=== PATIENT | female | born 2000 | race Caucasian/White ===

== ENCOUNTER 2024-08-13 07:45 | Inpatient (IN) ==
[2024-08-13] MEDS ORDERED: LACTATED RINGER'S 1,000 ML IV PRN (08:03)
[2024-08-13] MEDS ORDERED: ACETAMINOPHEN 325 MG TAB PO PRN (08:03)
[2024-08-13] MEDS ORDERED: LIDOCAINE 1% LOCAL 20 ML VIAL INFIL PRN (08:03)
[2024-08-13] MEDS: Patient's HEIGHT &/or WEIGHT Needed STA (09:08)
[2024-08-13 09:10] LABS: Hematocrit (blood only) 35.5 % (37.0-47.0); Hemoglobin 12.2 g/dl (12.0-16.0); Mean Corpuscular Hgb Conc 34.4 g/dL (32.0-36.0); Mean Corpuscular Volume 90.1 fL (80.0-100.0); Mean Platelet Volume 11.4 fL (9.4-12.4); Platelet Count 281 K/uL (130-400); RDW Coefficient of Variation 13.6 % (11.5-14.5); RDW Standard Deviation 44.1 fL (36.4-46.3); Red Blood Count 3.94 M/uL (4.20-5.40); White Blood Count 11.74 K/ul (4.8-10.8)
[2024-08-13 09:32] LABS: Albumin Level 3.7 gm/dl (3.4-5.0); BUN Creatinine Ratio 16.4 (10-20); Bilirubin,Total 0.2 mg/dl (0.2-1.0); Calcium 9.3 mg/dl (8.6-10.3); Globulin 3.7 gm/dl (2.5-4.0); Potassium 3.9 mmol/L (3.5-5.1); Total Protein 7.4 gm/dl (6.0-8.3)
[2024-08-13] MEDS ORDERED: LABETALOL HCL 100 MG TAB PO SCH (09:45)
[2024-08-13] MEDS: DINOPROSTONE 10 MG INSERT PV ONE (09:45)
--- NOTE | 2024-08-13 09:53 | History & Physical Report ---
Date of Service August 13, 2024 Assessment & Plan (1) Chronic hypertension: (2) Chronic hypertension during , antepartum: Plan: 24-year-old G1, P0 at 39 weeks of gestation scheduled for induction of labor at term for chronic hypertension during , Vital signs stable afebrile, heart rate reassuring, GBS positive, Cervix unfavorable, labs within normal limits Cervidil for cervical ripening was placed, patient understand induction process and what to expect, All questions were answered, Continue to monitor closely. (3) Positive GBS test: (4) Obesity during in third trimester: Admission and Anticipated Discharge Date Admission Date: August 13, 2024 History of Present Illness Primary Care Provider: BARBARA Hardin Patient is a 24-year-old G1, P0 at 39 weeks of gestation who was scheduled for induction of labor at term for chronic hypertension during . She has no complaints. She denies contractions, leakage of fluid, vaginal bleeding. She reports good movements. She has been diagnosed with hypertension and placed on labetalol about a year ago and continued during this with low-dose aspirin. Her has been uncomplicated except GBS positive. Allergies Allergy/AdvReac Type Severity Reaction Status Date / Time No Known Allergies Allergy Verified 08/13/24 08:01 Home Medications Medication Instructions Recorded Confirmed Type aspirin 81 mg chewable tablet 81 mg PO DAILY 08/13/24 08/13/24 History labetalol 100 mg tablet 100 mg PO BID 08/13/24 08/13/24 History [id number] 1 mg 1 tab PO DAILY 08/13/24 08/13/24 History tablet Patient History Medical History Chronic hypertension on medications prior to Surgical History Hx of breast reduction, elective 2016 Family History Other No known health problems Social History Smoking Status: Never smoker Hx Alcohol Use: No Hx Substance Use: No Preferred Language: Sami Visual Impairment: No Limitations Director Of Preclinical Research Required: No Beliefs That Will Affect Care: None marital status: marital status details: Gallito Delatorre Current Living Situation: Spouse current occupational status: unemployed current occupation: homemaker Feels Safe at Home: Yes Safety Concerns: Feels Safe At This Time Assistive Devices: None WARP DYEING TENDER History No history of STDs, no history of chlamydia, gonorrhea, herpes Review of Systems as per Subjective / HPI Physical Exam Constitutional: WD/WN, vitals as above Gastrointestinal (Abdomen): normal bowel sounds, soft, nontender, no hepatosplenomegaly ( gravid) Genitourinary: normal external appearance OB Exam Abdomen: + vertex ( confirmed with bedside ultrasound) Manual OB Exam: + cervical dilation fingertip ( external os fingertip, internal os closed, soft), + cervical effacement 10% and + station high OB Exam Monitor Tracing: + external uterine monitor used and + category I Results & Data Vital Signs (Past 12 Hours) Vital Signs Temp Pulse Resp BP 08/13/24 07:57 36.8 C 20 08/13/24 07:54 98 H 140/86 Laboratory Results Lab Results 08/13/24 Range/Units 08:43 WBC 11.74 H (4.8-10.8) K/ul RBC 3.94 L (4.20-5.40) M/uL Hgb 12.2 (12.0-16.0) g/dl Hct 35.5 L (37.0-47.0) % MCV 90.1 (80.0-100.0) fL MCH 31.0 (25.0-34.0) pg MCHC 34.4 (32.0-36.0) g/dL RDW Std Deviation 44.1 (36.4-46.3) fL RDW Coeff of Radha 13.6 (11.5-14.5) % Plt Count 281 (130-400) K/uL MPV 11.4 (9.4-12.4) fL Sodium 137 (136-145) mmol/L Potassium 3.9 (3.5-5.1) mmol/L Chloride 107 (98-107) mmol/L Carbon Dioxide 22 (21-32) mmol/L Anion Gap 8 (3-11) BUN 10 (6-23) mg/dl Creatinine 0.61 (0.6-1.2) mg/dl Est Cr Clr Drug Dosing 183.0 ml/min eGFR 127.16 BUN/Creatinine Ratio 16.4 (10-20) Glucose 107 H (70-99(Fasting)) mg/dl Calcium 9.3 (8.6-10.3) mg/dl Total Bilirubin 0.2 (0.2-1.0) mg/dl AST 13 (13-39) U/L ALT 9 (7-52) U/L Alkaline Phosphatase 161 H (34-104) U/L Total Protein 7.4 (6.0-8.3) gm/dl Albumin 3.7 (3.4-5.0) gm/dl Globulin 3.7 (2.5-4.0) gm/dl Albumin/Globulin Ratio 1.0 (0.9-2)
--- OUTSIDE RECORDS SUMMARY | 2024-08-13 14:45 | External Medical Summary | Summary of Care ---
Author Name Unknown Organization [facility] Address [address] [address] Phone [phone] Care Team Providers Care Foreign Agent Name Role Phone Jerrod Abraham PA-C Primary Care Provide r Reason for Visit * Reason Comments Return Visit Non Stress Test Encounter Details Date Type Department Care Team (Latest Contact Info) Description 08/06/2024 1:30 PM EDT Office Visit Gynecology/Obstetric s [facility] [address] [place] [id number] Yomaira Keenan CRNP [address] [place] [id number] [place], Non Stress Tests [facility] [address] [place] [id number] Supervision of high risk in third trimester*; Obesity affecting , antepartum, unspecified trimester; Chronic hypertension affecting ; Antepartum anemia complicating ; Carrier of group B Streptococcus Allergies No known active allergiesdocumented as of this encounter (statuses as of 08/06/2024) Medications 28-0.8 MG Oral Tablet Take by mouth. Active Doxylamine Succinate (Sleep) 25 MG Oral Tablet (Unisom)Indicati ons:Encounter for supervision of normal first in first trimester Take 1 Tablet by mouth every night at bedtime. 30 Tablet 1 01/21/2024 Active Labetalol HCl 100 MG Oral Tablet (Normodyne)Indic ations:HTN, goal below 130/80 Take 1 Tablet by mouth in the morning and 1 Tablet before bedtime. 180 Tablet 3 01/28/2024 Active Aspirin 81 MG Oral Tablet Chewable (Aspirin 81) Take 1 Tablet by mouth in the morning. Active documented as of this encounter (statuses as of 08/06/2024) Active Problems Problem Noted Date Diagnosed Date Carrier of group B Streptococcus 07/25/2024 Antepartum anemia complicating 025 Overview (05/30/2024): IV iron , supervision, high-risk 02/12/2024 Chronic hypertension affecting 024 Overview (02/12/2024): Chronic hypertension, 2023 Labetalol 100 mg PO bid Recommend starting low dose ASA Baseline Preeclampsia Labs Lab Results Component Value Date/Time PLT 354 01/21/2024 01:58 PM CREATININE - [facility] 0.7 01/21/2024 01:58 PM AST - [facility] 12 01/21/2024 01:58 PM ALT - [facility] 18 01/21/2024 01:58 PM PROTEIN/ CREATININE RATIO, URINE - [facility] <78 01/21/2024 03:47 PM BP Readings from Last 5 Encounters: 01/28/24 122/66 01/21/24 116/76 07/05/23 118/80 10/25/20 110/70 04/21/20 116/82 Assessment & Plan (07/24/2024 1:24 PM EDT): BP Readings from Last 5 Encounters: 07/23/24 122/74 07/16/24 114/66 07/09/24 118/72 07/02/24 118/74 06/25/24 126/78 Please titrate medication to maintain goal BP < 140/90. Assessment & Plan (06/26/2024 3:43 PM EST): BP Readings from Last 5 Encounters: 06/25/24 126/78 06/20/24 120/78 06/09/24 118/72 05/29/24 128/78 05/20/24 130/82 Please titrate medication to maintain goal BP < 140/90. Assessment & Plan (05/29/2024 10:03 AM EST): BP Readings from Last 5 Encounters: 05/20/24 130/82 04/15/24 132/80 03/31/24 137/69 03/18/24 126/74 02/18/24 124/74 Please titrate medication to maintain goal BP < 140/90. Assessment & Plan (04/29/2024 12:04 PM EST): BP Readings from Last 5 Encounters: 04/15/24 132/80 03/31/24 137/69 03/18/24 126/74 02/18/24 124/74 01/28/24 122/66 Please titrate medication to maintain goal BP < 140/90. Assessment & Plan (02/12/2024 11:11 AM EDT): Considerations: Women with chronic hypertension during are at significantly increased risk for morbidity. Signs and symptoms of superimposed pre-eclampsia were reviewed; instructed patient to contact primary OB care provider if these symptoms occur. Recommendations: Obtain baseline lab work JONAH (if not already done) with assessment of proteinuria (24-hour urine protein or ycuqxpu-yv-nsnepefzpt ratio) and CBC, serum AST/ALT/creatinine. If patient has had hypertension for 10 years or more, obtain an EKG and eye exam (if not performed within the past year). Recommend initiation of aspirin (81mg) daily, from 13 weeks until delivery, to decrease the risk of superimposed preeclampsia. Daily home blood pressure monitoring, especially in the second half of the . It may be useful to have the patient validate their home device with their primary OB care provider's office. Patients with BP less than 140/90 maintained with antihypertensives should continue medication during . Discontinuation of RENÉ inhibitors or angiotensin type II receptor antagonists under the guidance of the primary care physician prior to conception of or upon knowledge of . Initiate or adjust antihypertensive medication if BP is 140/90 or greater on at least two occasions at least 4 hours apart and refer patient back to Maternal- Medicine. Titrate medication to maintain blood pressure in a goal range 120-140/70-90. Labetalol and Nifedipine are considered safe for use in and these agents are considered as first-line therapy when indicated. Maternal Medicine ultrasound for anatomy at 19-20 weeks. surveillance as follows: If being treated with anti-hypertensives: Maternal- Medicine ultrasound for growth every 4 weeks starting at 24-26 weeks surveillance weekly starting at 32 weeks gestation Delivery should be individualized based on blood pressure control and assessment of patient risk and is indicated as follows: For those on anti-hypertensive medications: Between 37 0/7 and 39 6/7 weeks Body mass index (BMI) of 45.0 to 49.9 in adult 0 07/23/2023 Overview: Per Obesity protocol HTN, goal below 130/80 06/05/2023 3 Obesity affecting , antepartum, unspecified trimester 09/23/2018 Overview (02/05/2024): Pre gravid BMI: 42.6 Class 3 obesity 1 hour GTT ordered, not yet completed Lab Results Component Value Date/Time HEMOGLOBIN A1C - [facility] 5.2 06/05/2023 09:00 AM Assessment & Plan (03/31/2024 5:34 PM EST): She presents for a anatomy survey secondary to chronic hypertension (treated with labetalol) and class 3 obesity. Her BP's have been overall well-controlled with labetalol 100 mg BID. Labs reviewed: -- cffDNA low risk for aneuploidy -- early 1 hour GCT normal We reviewed the results of today's ultrasound. The estimated weight is appropriate for gestational age. The visualized anatomy is unremarkable in appearance. The amniotic fluid amount appears normal. A 7-8 mm area of echogenicity is noted near the right ovary. This may represent a small dermoid cyst vs image artifact. A 1.9 cm simple left ovarian cyst is noted. We discussed that ultrasound is not able to identify all anomalies, but it is reassuring that no anomalies were seen today. I reviewed images from her 01/21/24 early ultrasound. The right ovary was visualized at that time and did not appear to have an associated echogenic area, suggesting that the image today may be an image artifact or surrounding structure. We will plan to reevaluate at future exams. Assessment & Plan (02/12/2024 11:11 AM EDT): CONSIDERATIONS: Discussed obstetrical risks associated with class III obesity (pre- BMI of greater than or equal to 40) Reviewed that the accuracy of ultrasound at diagnosing anomalies is significantly decreased for women with an increased BMI. RECOMMENDATIONS: Recommend restricting weight gain during to 11-20 pounds. Patient should be referred for a nutrition consult. Recommend evaluation for signs and symptoms (snoring, excessive daytime sleepiness witnessed apnea or unexplained hypoxia) of obstructive sleep apnea. If any of these are present, referral to Sleep Medicine specialist for further evaluation should be considered. Recommend performing gestational diabetes mellitus screen now (if not performed at first visit) and repeat again at 26-28 weeks if early screen is normal. Recommend Maternal- Medicine ultrasound for anatomy at 20 weeks and for growth every 4 weeks thereafter. For patients with Class 3 obesity, we recommend baseline preeclamptic labs with CBC, serum AST/ALT/creatinine and ynqccxm-sg-zwdffcmmaf ratio or 24-hour urine protein JONAH if not already done. Recommend anesthesia consult during the antepartum period. Estimated Date of Delivery Comme nts Yes 08/19/2024 Based on last me nstrual period of 11/13/2023 (Exact Date) documented as of this encounter (statuses as of 08/06/2024) Resolved Problems Problem Noted Date Diagnosed Date Resolved Date with 13 completed weeks gestation 02/12/2024 02/18/2024 Class 3 obesity 01/21/2024 02/28/2024 Overview (01/21/2024): Pregravid BMI 42.66 Baseline PEC labs Growth q4wks, weekly NST at 34 weeks MFM referral Body mass index (BMI) of 120 % to less than 140% of 95th percentile for age in pediatric patient 01/09/2017 09/23/2018 Overview (02/12/2024): ICD-10 update of inactive term Slow transit constipation 09/17/2015 Tongue tie 01/28/2015 01/09/2017 documented as of this encounter (statuses as of 08/06/2024) Immunizations Name Administration Dates Next Due COVID-19 mRNA, LNP-s, No Pre serve, 2-Dose Series (Pfizer) 04/01/2021,05/21/2020,05/03/2020 DTaP Dipth/Tet/Acell Pertussis (Infanrix), Peds 10/19/2004,07/23/2000,1999,04/27 H1N1 2009 Influenza, IM 04/02/2009 HIB PRP-T, 4 Dose, PF, IM (H iberix, ActHib) 08/01/2000,1999,1999 HPV Vaccine, 4-Valent 08/26/2012,10/25/2011 HPV Vaccine, 9-Valent 12/09/2015 Hepatitis A, Ped/Adol., 18 y ear and below, 2-Dose 08/26/2012,11/27/2007 Hepatitis B, 0-19 yrs 1999,1999,04/13 IPV - Polio Virus Vaccine (Inact) 2004,07/23/2000,1999,04/27 MMR - Measles/Mumps/Rubella Vaccine 10/19/2004,1 Meningococcal B, 2/3-Dose Se azra (TRUMENBA) 11/28/2019,09/23/2018 Meningococcal Conjugate Vacc ine (Menactra/Menveo) 12/09/2015,10/25/2011 Pneumococcal Polysaccharide PPV23 (Pneumovax) 12/19/2002 Season Influenza, Quad, PF, Adjuvanted, 65+ Yrs, IM (FLUAD) 03/22/2020 Seasonal Influenza, Trivalen t, (IIV3), PF, (Fluzone) 02/18/2024 TDAP, Age 7 and older, IM (Adacel) 05/29/2024, Varicella Vaccine (Chicken Pox) 08/30/2011,02/28 documented as of this encounter Social History Tobacco Use Types Packs/Day Years Used Date Smoking Tobacco: Never Smokeless Tobacco: Never Alcohol Use Standard Drinks/Week Comments No 0 (1 standard drink = 0.6 oz pur e alcohol) PHQ-2 Answer Date Recorded PHQ-2 Score 0 11/28/2019 Hunger Vital Sign Answer Date Recorded Within the past 12 months, y ou worried that your food would run out before you got the money to buy more. Never true 04/01/20 24 Within the past 12 months, t he food you bought just didn't last and you didn't have money to get more. Never true 04/01/2024 [employer] Depression Scale Answer Date Recorded [employer] Depression Scale Total 2 01/21/2024 The thought of harming myself has occurred to me . Never 01/21/2024 Childcare Answer Date Recorded Do you feel overwhelmed with taking care of a child, family member or friend? No 04/01/2024 Does your family need help f inding childcare? (Household - for ages 0-17 years) Not on file 04/01/2024 Clothing Answer Date Recorded Have you been unable to get clothing when it was really needed? No 04/01/2024 Is your family able to get c lothes or diapers when needed? (Household - for ages 0-17 years) Not on file 04/01/2024 Personal Safety Answer Date Recorded Do you feel unsafe or have concerns for your saf ety? No 04/01/2024 Do you have concerns for you r family's safety? (Household - for ages 0-17 years) Not on file 04/01/2024 Utilities Answer Date Recorded Do you have trouble paying y our heating, water, or electric bill? No 04/01/2024 Is your family able to pay t he heat, water, or electric bill? (Household - for ages 0-17 years) Not on file 04/01/2024 Does your family have access to good internet? (Household - for ages 0-17 years) Not on file 04/01/2024 Employment Status Answer Date Recorded Are you unemployed or without regular income? No 04/01/2024 Does the household have a re gular source of income? (Household - for ages 0-17 years) Not on file 04/01/2024 Social Connections Answer Date Recorded How often do you feel lonely or isolated from th ose around you? Never 04/01/2024 Financial Resource Strain Answer Date R ecorded Do you have any trouble payi ng for your medications, or do you think you might in the future? No 04/01/2024 Does your family have troubl e paying for medicine? (Household - for ages 0-17 years) Not on file 04/01/2024 Transportation Needs Answer Date Record ed Do you have trouble getting a ride to medical visits or work? (Adult - for ages 18 years and over) Not on file 04/01/2024 Does your family have a hard time getting a ride to doctors visits? (Household - for ages 0-17 years) Not on file 04/01/2024 Has lack of transportation k ept you from medical appointments, meetings, work, or from getting things needed for daily living? Check all that apply. No 04/01/2024 Do you (or your family) have trouble finding or paying for a ride (transportation)? (Household - for ages 0-17 years) Not on file 04/01/2024 Housing Stability Answer Date Recorded Do you currently live in a s helter or have no steady place to sleep at night? No 04/01/2024 Do you think you are at risk of becoming homeless? (Adult - for ages 18 years and over) Not on file 04/01/2024 Does your family worry about paying for your home or becoming homeless? (Household - for ages 0-17 years) Not on file 1 06/01/2023 Are you homeless or worried that you might be in the future? No 04/01/2024 Are you (or your family) karen eless or worried that you might be in the future? (Household - for ages 0-17 years) Not on file Food Insecurity Answer Date Recorded Do you need food for this week? Yes 04/01/2024 Are you able to get enough f ood for your family? (Household - for ages 0-17 years) Not on file 04/01/2024 Does your family need food t his week? (Household - for ages 0-17 years) Not on file 04/01/2024 Do you always have enough fo od for your family? (Household - for ages 0-17 years) Not on file 04/01/2024 Food Insecurity Answer Date Recorded Within the past 12 months, y ou worried that your food would run out before you got the money to buy more. Never true 04/01/20 24 Within the past 12 months, t he food you bought just didn't last and you didn't have money to get more. Never true 04/01/2024 Do you need food for this week? 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 Good FM. Denies contractions, bleeding, LOF. IOL 08/13. ASSESSMENT assessment with Non-stress Test completed on 08/06/2024 at 38.1weeks gestation for indication of chronic hypertension heart baseline: 140 bpm Variability: Moderate Decelerations: absent Accelerations: present Contractions: None NST start time: 2099 (time stamp not accurate on EFM) NST stop time: 2122 NST strip reviewed, interpreted, and approved by OB provider, BARBARA Wallis . NST strip stored in clinic storage file documented in this encounter Plan of Treatment Upcoming Encounters Date Type Department Care Team (Late st Contact Info) Description 08/11/2024 10:15 AM EDT Pharmacy [facility], [place] [address] [id number] [address] [facility] [place] [id number] 09/11/2024 12:00 PM EDT Office Visit Family Practice [address] [place] [address] Jerrod Abraham PA-C [address] [place] [id number] Health Maintenance Due Date Last Done Comments Depression Screening 11/27/2020 11/28/2019 COVID-19 Vaccine ( season) 2024 04/01/2021, 05/21/2020, 05/03/2020 GFR 05/29/2025 05/29/2024, 0901/2024, 05/10/2020, Additional history exists Pap Smear 07/05/2026 07/05/2023, 10/25/2020 DTap/Tdap Vaccines (8 - Td or Tdap) 05/29/2034 05/29/2024, 08/26/2012, 10/19/2004, Additional history exists Hepatitis B Vaccine Completed 1999, 1999, 1999 Pneumococcal Vaccine: Pediatrics (0 to 5 Years) and At-Risk Patients (6 to 18 Years and 19+ Years) Aged Out 12/19/2002 No longer eligib le based on patient's age to complete this topic HPV (Gardasil) Vaccine Completed 6, 08/26/2012, 10/25/2011 MENINGOCOCCAL (MENACTRA/MENVEO) Completed 12/09/2015, 10/25/2011 Meningitis B Vaccine (Bexsero/Trumemba) Completed 11/28/2019, 09/23/2018 Gonorrhea / Chlamydia Screen Discontinued 01/21/2024, 11/28/2019, 09/23/2018 Influenza Vaccine (FLU shot) Completed 02/18/2024, 03/22/2020, 04/02/2009 Albumin/Creatinine Ratio Discontinued 03/03/2024 documented as of this encounter Goals Goal Patient Goal Type Associated Problems Recent Progress Patient-Stated? Author Reminders Care Plan OB Reminders No Mychart, Provider documented as of this encounter Medical Devices Not on filedocumented as of this encounter Visit Diagnoses Diagnosis Obesity affecting , antepartum, unspecified trimester- Primary Chronic hypertension affecting Class 3 obesity (HCC) Supervision of high risk in first trimester Unspecified high-risk with 13 completed weeks gestation Obesity affecting , antepartum, unspecified trimester- Primary Body mass index (BMI) of 45.0 to 49.9 in adult (HCC) Chronic hypertension affecting 19 weeks gestation of state, incidental Chronic hypertension affecting - Primary Obesity affecting , antepartum, unspecified trimester Ultrasound for screening for growth restriction screening for growth retardation using ultrasonics 24 weeks gestation of state, incidental Obesity affecting , antepartum, unspecified trimester- Primary Ultrasound for screening for growth restriction screening for growth retardation using ultrasonics 28 weeks gestation of state, incidental Obesity affecting , antepartum, unspecified trimester- Primary Chronic hypertension affecting Ultrasound for screening for growth restriction screening for growth retardation using ultrasonics 32 weeks gestation of state, incidental Chronic hypertension affecting - Primary Obesity affecting , antepartum, unspecified trimester Ultrasound for screening for growth restriction screening for growth retardation using ultrasonics 36 weeks gestation of state, incidental Supervision of high risk in third trimester- Primary Unspecified high-risk Obesity affecting , antepartum, unspecified trimester Chronic hypertension affecting Antepartum anemia complicating Anemia, antepartum Carrier of group B Streptococcus Carrier or suspected carrier of Group B streptococcus documented in this encounter Additional Health Concerns Active Problems Noted Date Diagnosed Date OB Reminders 01/21/2024 documented as of this encounter Care Teams Foreign Agent Relationship Specialty Start Date End Date Jerrod Abraham PA-C [address] [facility] [place] [id number] PCP - General Physician Hood Maker 01/28/24 documented as of this encounter
--- OUTSIDE RECORDS SUMMARY | 2024-08-13 14:46 | External Medical Summary | Summary of Care ---
Author Name Unknown Organization [facility] Address [address] [facility] [address] Phone [phone] Care Team Providers Care Breeder Service Technician Name Role Phone Jerrod Abraham PA-C Primary Care Provide r Reason for Visit * Reason Comments Return Visit Non Stress Test Encounter Details Date Type Department Care Team (Late st Contact Info) Description 07/23/2024 1:30 PM EDT Office Visit Gynecology/Obstetric s [facility] [address] [place] [address] Yomaira Keenan CRNP [address] [place] [address] [place], Non Stress Tests [facility] [address] [place] [address] Supervision of high risk in third trimester*; Obesity affecting , antepartum, unspecified trimester; Chronic hypertension affecting ; Antepartum anemia complicating Allergies No known active allergiesdocumented as of this encounter (statuses as of 07/23/2024) Medications 28-0.8 MG Oral Tablet Take by [...] as of this encounter (statuses as of 07/23/2024) Active Problems Problem Noted Date Diagnosed Date Antepartum anemia complicating 025 Overview (05/30/2024): IV [...] 10/25/20 110/70 04/21/20 116/82 Assessment & Plan (06/26/2024 3:43 PM EST): [...] assessment of proteinuria (24-hour urine protein or lvxoogm-sv-xnsesxrcfs ratio) and CBC, serum AST/ALT/creatinine. If patient [...] Results Component Value Date/Time HEMOGLOBIN A1C - ALISHA 5.2 06/05/2023 09:00 AM Assessment & Plan [...] preeclamptic labs with CBC, serum AST/ALT/creatinine and meigatq-js-bqgrmbslyq ratio or 24-hour urine protein JONAH if not already done. Recommend anesthesia consult during the antepartum period. Estimated Date of Delivery Comme nts Yes 08/19/2024 Based on last me nstrual period of 11/13/2023 (Exact Date) documented as of this encounter (statuses as of 07/23/2024) Resolved Problems Problem Noted Date Diagnosed Date [...] as of this encounter (statuses as of 07/23/2024) Immunizations Name Administration Dates Next Due COVID-19 mRNA, LNP-s, No Pre serve, 2-Dose Series ([employer]) 04/01/2021,05/21/2020,05/03/2020 DTaP Dipth/Tet/Acell Pertussis (Infanrix), Peds 10/19/2004,07/23/2000,1999,07/04,1999 H1N1 2009 Influenza, IM 04/02/2009 HIB PRP-T, 4 Dose, PF, IM (H iberix, ActHib) 08/01/2000,1999,1999,04/27 HPV Vaccine, 4-Valent 08/26/2012,10/25/2011 HPV Vaccine, 9-Valent [...] money to get more. 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 BP is good. GBS today. Operations Program Manager Documentation Provider requested precipitator operator. Name of precipitator operator: Laura CHILDERS scheduled. ASSESSMENT assessment with Non-stress Test completed on 07/23/2024 at 36.1weeks gestation for indication of obesity and chronic hypertension heart baseline: 130 bpm Variability: Moderate Decelerations: absent Accelerations: present Contractions: None NST start time: 1223 NST stop time: 1256 NST strip reviewed, interpreted, and approved by OB provider, BARBARA Wallis . NST strip stored in clinic storage file documented in this encounter Plan of Treatment Upcoming Encounters Date Type Department Care Team (Late st Contact Info) Description 07/24/2024 9:30 AM EDT Pharmacy Pharmacy, [place] [address] [place] [facility] [place] [address] Clinic, [facility] [address] [place] [address] 07/24/2024 11:00 AM EDT Imaging Maternal Medicine Imaging, [place] [phone] 07/24/2024 11:00 AM EDT Office Visit Deli/Bakery Associate Obstetrics Maternal Medicine, [place] [address] Golria Higgins, DO [address] [facility] [place], [place] [address] 07/30/2024 1:30 PM EDT Office Visit Gynecology/Obstetrics [facility] [address] [place] [address] Yomaira Keenan CRNP [address] [place] [address] Prakash Non Stress Tests [facility] [address] [place] [address] 08/06/2024 1:30 PM EDT Office Visit Gynecology/Obstetrics [facility] [address] [place] [address] Yomaira Keenan CRNP [address] [place] [address] Prakash Non Stress Tests [facility] [address] [place] [address] 08/13/2024 1:30 PM EDT Office Visit Gynecology/Obstetrics [facility] [address] [place] [address] Yomaira Keenan CRNP [address] [place] [address] Prakash Non Stress Tests [facility] [address] [place] [address] 09/11/2024 12:00 PM EDT Office Visit [facility] [address] [place] [address] Jerrod Abraham PA-C [address] [place] [address] Pending Results Name Type Priority Associated Diagnoses Date /Time GROUP B STREP CULTURE/PCR Lab Routine Supervision of high risk in third trimester 07/23/2024 2:07 PM EDT Scheduled Orders Name Type Priority Associated Diagnoses Orde r Schedule GROUP B STREP CULTURE/PCR Lab Routine Supervision of high risk in third trimester Expected: 07/23/2024, Expires: 07/23/2025 Health Maintenance Due Date Last Done Comments Depression Screening 11/27/2020 11/28/2019 COVID-19 Vaccine ( season) 2024 04/01/2021, 05/21/2020, 05/03/2020 GFR 05/29/2025 05/29/2024, 09/01/2024, 05/10/2020, Additional history exists Pap Smear 07/05/2026 07/05/2023, 10/25/2020 DTap/Tdap Vaccines (8 - Td or Tdap) 05/29/2034 05/29/2024, 08/26/2012, 10/19/2004, Additional history exists Hepatitis B Vaccine Completed 1999, 1999, 1999 Pneumococcal Vaccine: Pediatrics (0 to 5 Years) and At-Risk Patients (6 to 18 Years and 19+ Years) Aged Out 12/19/2002 No longer nunob jojo based on patient's age to complete this [...] Not on filedocumented as of this encounter Procedures Procedure Name Priority Date/Time Associated Diagnosis Comments URINALYSIS OBSTETRICS, POINT OF CARE JNOAH 07/23/2024 1:27 PM EDT documented in this encounter Results * URINALYSIS OBSTETRICS, POINT OF CARE (07/23/2024 1:27 PM EDT) Color, Urine Yellow Light Yellow, Yellow 07/23/2024 1:29 PM EDT [facility] [place] [facility] Clarity, Urine Clear Clear 07/23/2024 1:29 PM EDT [facility] [place] [facility] Glucose, Urine Negative Negative mg/dL 07/23/2024 1:29 PM EDT [facility] [place] [facility] Bilirubin, Urine Negative Negative 07/23/2024 1:29 PM EDT [facility] [place] [facility] Ketone, Urine Negative Negative mg/dL 07/23/2024 1:29 PM EDT [facility] [place] [facility] Specific [place], Urine 1.010 1.003 - 1.030 07/23/2024 1:29 PM EDT [facility] [place] [facility] Blood, Urine Negative Negative 07/23/2024 1:29 PM EDT [facility] [place] [facility] pH, Urine 6.5 5.0, 5.5, 6.0, 6.5, 7.0, 7.5 units 07/23/2024 1:29 PM EDT [facility] [place] [facility] Protein, Urine Negative Negative mg/dL 07/23/2024 1:29 PM EDT [facility] [place] [facility] Urobilinogen, Urine 0.2 0.2, 1.0 mg/dL 07/23/2024 1:29 PM EDT [facility] [place] [facility] Nitrite, Urine Negative Negative 07/23/2024 1:29 PM EDT [facility] [place] [facility] Esterase, Urine Negative Negative 07/23/2024 1:29 PM EDT [facility] [place] [facility] Urine 07/23/2024 1:27 PM EDT 07/23/2024 1:29 PM EDT us Yomaira JIMENEZ LAB POINT OF CARE TE ST DOCKED DEVICE UNSOLICITED RESULTS Final Result [facility] [address] [place] [address] documented in this encounter Visit Diagnoses Diagnosis Obesity affecting , antepartum, unspecified trimester- Primary Chronic hypertension affecting Class 3 obesity Supervision of high risk in first trimester [...] ultrasonics 32 weeks gestation of state, incidental Supervision of high risk in third trimester- Primary Unspecified high-risk Obesity affecting , antepartum, unspecified trimester Chronic hypertension affecting Antepartum anemia complicating Anemia, antepartum documented in this encounter Additional Health Concerns Active Problems Noted Date Diagnosed Date OB Reminders 01/21/2024 documented as of this encounter Care Teams Breeder Service Technician Relationship Specialty Start Date End Date Jerrod Abraham PA-C [address] [facility] [place] [address] PCP - General Physician Flavoring Maker 01/28/24 documented as of this encounter
--- OUTSIDE RECORDS SUMMARY | 2024-08-13 14:46 | External Medical Summary | Summary of Care ---
Author Name Unknown Organization [facility] Address [address] [facility] [address] Phone [phone] Care Team Providers Care Operations Inspector Name Role Phone Jerrod Abraham PA-C Primary Care Provide r Reason for Visit * Reason Comments Return Visit Non Stress Test Encounter Details Date Type Department Care Team (Latest Contact Info) Description 07/30/2024 1:30 PM EDT Office Visit Gynecology/Obstetric s [facility] [address] [place] [address] Yomaira Keenan CRNP [address] [place] [address] [place], Non Stress Tests [facility] [address] [place] [address] Obesity affecting , antepartum, unspecified trimester*; Supervision of high risk in third trimester; Chronic hypertension affecting ; Antepartum anemia complicating ; Carrier of group B Streptococcus Allergies No known active allergiesdocumented as of this encounter (statuses as of 07/30/2024) Medications 28-0.8 MG Oral Tablet Take by [...] as of this encounter (statuses as of 07/30/2024) Active Problems Problem Noted Date Diagnosed Date [...] assessment of proteinuria (24-hour urine protein or qtyaxmw-mj-vgvqxtoqsy ratio) and CBC, serum AST/ALT/creatinine. If patient [...] preeclamptic labs with CBC, serum AST/ALT/creatinine and jwiconw-fe-anpsnvblqy ratio or 24-hour urine protein JONAH if not already done. Recommend anesthesia consult during the antepartum period. Estimated Date of Delivery Comme nts Yes 08/19/2024 Based on last me nstrual period of 11/13/2023 (Exact Date) documented as of this encounter (statuses as of 07/30/2024) Resolved Problems Problem Noted Date Diagnosed Date [...] as of this encounter (statuses as of 07/30/2024) Immunizations Name Administration Dates Next Due COVID-19 [...] money to get more. 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 Baby is active. Denies contractions. Has IOL scheduled. ASSESSMENT assessment with Non-stress Test completed on 07/30/2024 at 37.1weeks gestation for indication of chronic hypertension heart baseline: 135 bpm Variability: Moderate Decelerations: absent Accelerations: present Contractions: None NST start time: 1446 NST stop time: 1515 NST strip reviewed, interpreted, and approved by OB provider, BARBARA Wallis . NST strip stored in clinic storage file * Laura Sommers CMA - 07/30/2024 1:43 PM EDT 37w1d Denies any concerns documented in this encounter Plan of Treatment Upcoming Encounters Date Type Department Care Team (Late st Contact Info) Description 08/01/2024 9:30 AM EDT Pharmacy Pharmacy, [place] [address] [facility] [place] [address] Clinic, [facility] [address] [facility] [place] [address] 08/06/2024 1:30 PM EDT Office Visit Gynecology/Obstetrics [facility] [address] [facility] [place] [address] Yomaira Keenan CRNP [address] [place] [address] [facility] Stress Tests [facility] [address] [place] [address] 09/11/2024 12:00 PM EDT Office Visit Family Practice [address] [place] [address] Jerrod Abraham PA-C [address] [place] [address] Health Maintenance Due Date Last Done Comments Depression Screening 11/27/2020 11/28/2019 COVID-19 Vaccine ( season) 2024 04/01/2021, 05/21/2020, 05/03/2020 GFR 05/29/2025 05/29/2024, 09/0 01/2024, 05/10/2020, Additional history exists Pap Smear 07/05/2026 [...] Diagnosis Comments URINALYSIS OBSTETRICS, POINT OF CARE JONAH 07/30/2024 1:33 PM EDT documented in this encounter Results * (ABNORMAL) URINALYSIS OBSTETRICS, POINT OF CARE (07/30/2024 1:33 PM EDT) Color, Urine Yellow Light Yellow, Yellow 07/30/2024 1:37 PM EDT [facility] [place] [facility] Clarity, Urine Clear Clear 07/30/2024 1:37 PM EDT [facility] [place] [facility] Glucose, Urine Negative Negative mg/dL 07/30/2024 1:37 PM EDT [facility] [place] [facility] Bilirubin, Urine Negative Negative 07/30/2024 1:37 PM EDT [facility] [place] [facility] Ketone, Urine Negative Negative mg/dL 07/30/2024 1:37 PM EDT [facility] [place] [facility] Specific [place], Urine 1.015 1.003 - 1.030 07/30/2024 1:37 PM EDT [facility] [place] [facility] Blood, Urine Negative Negative 07/30/2024 1:37 PM EDT [facility] [place] [facility] pH, Urine 7.0 5.0, 5.5, 6.0, 6.5, 7.0, 7.5 units 07/30/2024 1:37 PM EDT [facility] [place] [facility] Protein, Urine Negative Negative mg/dL 07/30/2024 1:37 PM EDT [facility] [place] [facility] Urobilinogen, Urine 0.2 0.2, 1.0 mg/dL 07/30/2024 1:37 PM EDT [facility] [place] [facility] Nitrite, Urine Negative Negative 07/30/2024 1:37 PM EDT [facility] [place] [facility] Esterase, Urine Trace(A) Negative 07/30/2024 1:37 PM EDT [facility] [place] [facility] Urine 07/30/2024 1:33 PM EDT 07/30/2024 1:36 PM EDT us Yomaira Keenan CHART WRITER LAB POINT OF CARE TE ST DOCKED DEVICE UNSOLICITED RESULTS Final Result Performing Organization Address City/State/[facility] Co de Phone Number [facility] [place] [facility] [address] [place] [address] documented in this encounter Visit Diagnoses Diagnosis [...] ultrasonics 36 weeks gestation of state, incidental Obesity affecting , antepartum, unspecified trimester- Primary Supervision of high risk in third trimester Unspecified high-risk Chronic hypertension affecting Antepartum anemia complicating Anemia, antepartum Carrier of group B Streptococcus Carrier or suspected carrier of Group B streptococcus documented in this encounter Additional Health Concerns Active Problems Noted Date Diagnosed Date OB Reminders 01/21/2024 documented as of this encounter Care Teams Operations Inspector Relationship Specialty Start Date End Date Jerrod Abraham PA-C [address] [facility] [place] [address] PCP - General Physician Skip Miner Blasting 01/28/24 documented as of this encounter
--- OUTSIDE RECORDS SUMMARY | 2024-08-13 14:46 | External Medical Summary | Summary of Care ---
Author Name Unknown Organization [facility] Address [address] [place] [address] Phone [phone] Care Team Providers Care General Repair Mechanic Name Role Phone Jerrod Abraham PA-C Primary Care Provide r Encounter Details Date Type Department Care Team (Late st Contact Info) Description 07/24/2024 11:00 AM EDT Office Visit Home Care Scheduler Obstetrics Maternal Medicine, [address] [place] [address] Ronaldo Gloriakulwinder Henderson, DO [address] [place] [address] Chronic hypertension affecting *; Obesity affecting , antepartum, unspecified trimester; Ultrasound for screening for growth restriction; 36 weeks gestation of Allergies No known active allergiesdocumented as of this encounter (statuses as of 07/24/2024) Medications 28-0.8 MG Oral Tablet Take by [...] as of this encounter (statuses as of 07/24/2024) Active Problems Problem Noted Date Diagnosed Date [...] assessment of proteinuria (24-hour urine protein or glaqdxh-vr-gqpnkzeqhd ratio) and CBC, serum AST/ALT/creatinine. If patient [...] preeclamptic labs with CBC, serum AST/ALT/creatinine and asnehxy-yr-srgqilqxgv ratio or 24-hour urine protein JONAH if not already done. Recommend anesthesia consult during the antepartum period. Estimated Date of Delivery Comme nts Yes 08/19/2024 Based on last me nstrual period of 11/13/2023 (Exact Date) documented as of this encounter (statuses as of 07/24/2024) Resolved Problems Problem Noted Date Diagnosed Date [...] as of this encounter (statuses as of 07/24/2024) Immunizations Name Administration Dates Next Due COVID-19 mRNA, LNP-s, No Pre serve, 2-Dose Series ([employer]) 04/01/2021,05/21/2020,05/03/2020 DTaP Dipth/Tet/Acell Pertussis (Infanrix), Peds 10/19/2004,07/23/2000,1999,07/04,1999 [...] money to get more. Never true 04/01/2024 [place] Depression Scale Answer Date Recorded [place] Depression Scale Total 2 01/21/2024 The thought [...] 04/01/2024 Does the household have a re lar source of income? 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 Obesity affecting , antepartum, unspecified trimester Ultrasound for screening for growth restriction 36 weeks gestation of Ultrasound summary: Patient presented at 36w 2d for growth assessment. Normal growth with EFW 2572 g at 21%ile. Normal GAMALIEL at 10 cm. Cephalic presentation. I reviewed the ultrasound images. Kaitlynn was given the opportunity to meet with me if she had any questions. Please refer to the ultrasound report for additional details about today's ultrasound examination. RECOMMENDATIONS: Follow up with MFM for ultrasound as clinically indicated. Weekly NSTs. See prior formal MFM consultation note. Thank you for allowing us to participate in the care of this patient. Please call with any questions. Gloria Higgins DO 07/24/2024 1:25 PM documented in this encounter Miscellaneous Notes * Assessment & Plan Note - Gloria Higgins DO - 07/24/2024 1:24 PM EDT Associated Problem(s): Chronic hypertension affecting BP Readings from Last 5 Encounters: 07/23/24 122/74 07/16/24 114/66 07/09/24 118/72 07/02/24 118/74 06/25/24 126/78 Please titrate medication to maintain goal BP < 140/90. documented in this encounter Plan of Treatment Upcoming Encounters Date Type Department Care Team (Late st Contact Info) Description 07/30/2024 1:30 PM EDT Office Visit Gynecology/Obstetrics [facility] [address] [place] [address] Yomaira Keenan CRNP [address] [place] [address] [facility] Stress Tests [facility] [address] [place] [address] 08/06/2024 1:30 PM EDT Office Visit Gynecology/Obstetrics [facility] [address] [place] [address] Yomaira Keenan CRNP [address] [place] [address] Mai [facility] Stress Tests [facility] [address] [place] [address] 08/13/2024 1:30 PM EDT Office Visit Gynecology/Obstetrics [facility] [address] [place] [address] Yomaira Keenan CRNP [address] [place] [address] Mai [place] Stress Tests [facility] [address] [place] [address] 09/11/2024 12:00 PM EDT Office Visit [facility] [address] [place] [id number] Jerrod Abraham PA-C [address] [facility] [place] [address] Health Maintenance Due Date Last Done Comments Depression Screening 11/27/2020 11/28/2019 COVID-19 Vaccine ( season) 2024 04/01/2021, 05/21/2020, 05/03/2020 GFR 05/29/2025 05/29/2024, 01/2024, 05/10/2020, Additional history exists Pap Smear [...] ultrasonics 36 weeks gestation of state, incidental documented in this encounter Additional Health Concerns Active Problems Noted Date Diagnosed Date OB Reminders 01/21/2024 documented as of this encounter Care Teams General Repair Mechanic Relationship Specialty Start Date End Date Jerrod Abraham PA-C [address] [facility] [place] [address] PCP - General Physician Hot Stick Worker 01/28/24 documented as of this encounter
--- OUTSIDE RECORDS SUMMARY | 2024-08-13 14:46 | External Medical Summary | Summary of Care ---
Author Name Unknown Organization [facility] Address [address] [place] [address] Phone [phone] Care Team Providers Care Shuttle Van Driver Name Role Phone Jerrod Abraham PA-C Primary Care Provide r Reason for Visit * Reason Onset Date Comments Anemia Follow-Up 08/04/2024 Encounter Details Date Type Department Care Team (Late st Contact Info) Description 08/01/2024 10:15 AM EDT Pharmacy Pharmacy, [facility] [address] [place] [address] Clinic, Anemia [address] [place] [address] Antepartum anemia complicating * Allergies No known active allergiesdocumented as of this encounter (statuses as of 08/04/2024) Medications 28-0.8 MG Oral Tablet Take by [...] as of this encounter (statuses as of 08/04/2024) Active Problems Problem Noted Date Diagnosed Date [...] assessment of proteinuria (24-hour urine protein or nuucacu-te-xmqjpzcryr ratio) and CBC, serum AST/ALT/creatinine. If patient [...] Results Component Value Date/Time HEMOGLOBIN A1C - [employer] 5.2 06/05/2023 09:00 AM Assessment & Plan [...] preeclamptic labs with CBC, serum AST/ALT/creatinine and xbgmiwu-qn-khraucvczi ratio or 24-hour urine protein JONAH if not already done. Recommend anesthesia consult during the antepartum period. Estimated Date of Delivery Comme nts Yes 08/19/2024 Based on last me nstrual period of 11/13/2023 (Exact Date) documented as of this encounter (statuses as of 08/04/2024) Resolved Problems Problem Noted Date Diagnosed Date [...] as of this encounter (statuses as of 08/04/2024) Immunizations Name Administration Dates Next Due COVID-19 mRNA, LNP-s, No Pre serve, 2-Dose Series ([employer]) 04/01/2021,05/21/2020,05/03/2020 DTaP Dipth/Tet/Acell Pertussis (Infanrix), Peds 10/19/2004,07/23/2000,1999,04/27 [...] money to get more. 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 LMOVM. GA: [id number] Estimated Date of Delivery: 08/19/24 Hgb: 12.0 g/dL TSAT: 25 % Ferritin: 437 ng/mL B12: 509 pg/mL FA: >20 ng/mL Patient is s/p Infed 1g x 1 on 06/20/24. Hgb is within target range for the 3rd trimester. Iron studies within target range. B12 and FA within target range. Plan: No anemia pharmacological intervention at this time. Follow up: Attempt #3 in 1 week, unless patient returns call sooner Anemia Clinic will continue to follow. Thank you for allowing us to participate in the care of thispatient. Thanks, Sadie Max [facility] Clinical Pharmacist documented in this encounter Plan of Treatment Upcoming Encounters Date Type Department Care Team (Late st Contact Info) Description 08/06/2024 1:30 PM EDT Office Visit Gynecology/Obstetrics Sondra Randall [address] [place] [address] Yomaira Keenan CRNP [address] [place] [address] Mai Randall Stress Tests [place] [address] [place] [address] 08/11/2024 10:15 AM EDT Pharmacy Pharmacy, [address] [place] [address] Clinic, Anemia [address] [place] [address] 09/11/2024 12:00 PM EDT Office Visit Family Practice [place], Julio Cesar [address] [place] [address] Jerrod Abraham PA-C [address] [place] [address] Health Maintenance Due Date [...] 19+ Years) Aged Out 12/19/2002 No longer elisiennab jojo based on patient's age to complete [...] ultrasonics 36 weeks gestation of state, incidental Antepartum anemia complicating - Primary Anemia, antepartum documented in this encounter Additional Health Concerns Active Problems Noted Date Diagnosed Date OB Reminders 01/21/2024 documented as of this encounter Care Teams Shuttle Van Driver Relationship Specialty Start Date End Date Jerrod Abraham PA-C [address] [facility] [place] [address] PCP - General Physician Gear Room Keeper 01/28/24 documented as of this encounter
--- OUTSIDE RECORDS SUMMARY | 2024-08-13 14:46 | External Medical Summary | Summary of Care ---
Author Name Unknown Organization [facility] Address [address] [place] [address] Phone [phone] Care Team Providers Care Continuing Education Instructor Name Role Phone Jerrod Abraham PA-C Primary Care Provide r Reason for Visit * Reason Comments Anemia Follow-Up Encounter Details Date Type Department Care Team (Late st Contact Info) Description 07/24/2024 9:30 AM EDT Pharmacy Pharmacy, [facility] [address] [place] [address] Clinic, Anemia [address] [place] [address] Antepartum anemia complicating * Allergies No known active allergiesdocumented as of this encounter (statuses as of 07/25/2024) Medications 28-0.8 MG Oral Tablet Take by [...] as of this encounter (statuses as of 07/25/2024) Active Problems Problem Noted Date Diagnosed Date [...] assessment of proteinuria (24-hour urine protein or jvvdwcz-oa-uxynitokad ratio) and CBC, serum AST/ALT/creatinine. If patient [...] preeclamptic labs with CBC, serum AST/ALT/creatinine and jmjibkl-hw-evwmkcsecy ratio or 24-hour urine protein JONAH if not already done. Recommend anesthesia consult during the antepartum period. Estimated Date of Delivery Comme nts Yes 08/19/2024 Based on last me nstrual period of 11/13/2023 (Exact Date) documented as of this encounter (statuses as of 07/25/2024) Resolved Problems Problem Noted Date Diagnosed Date [...] as of this encounter (statuses as of 07/25/2024) Immunizations Name Administration Dates Next Due COVID-19 mRNA, LNP-s, No Pre serve, 2-Dose Series ([employer]) 04/01/2021,05/21/2020,05/03/2020 DTaP Dipth/Tet/Acell Pertussis (Infanrix), Peds 10/19/2004,07/23/2000,1999,04/27 [...] to get more. 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 Was unable to reach patient. Left voicemail and provided callback number. GA: [id number] Estimated Date of Delivery: 08/19/24 Hgb: 12.0 g/dL TSAT: 25 % Ferritin: 437 ng/mL B12: 509 pg/mL FA: >20 ng/mL Patient is s/p Infed 1g on 06/20/24. Hgb is within target range for the 3rd trimester. Iron studies within target range. B12 and FA within target range. Plan: No anemia pharmacological intervention at this time. Follow up: attempt #2 in 1 week, unless patient returns call sooner Anemia Clinic will continue to follow. Thank you for allowing us to participate in the care of thispatient. Alondra Waters, PharmD Clinical Pharmacist - Desktop Support Engineer [facility] (P: [phone]) 07/25/2024 9:43 AM documented in this encounter Plan of Treatment Upcoming Encounters Date Type Department Care Team (Late st Contact Info) Description 07/30/2024 1:30 PM EDT Office Visit Gynecology/Obstetrics Sondra Randall [address] [place] [address] Yomaira Keenan CRNP [address] [place] [address] Mai Randall Stress Tests [place] [address] [place] [address] 08/01/2024 9:30 AM EDT Pharmacy Pharmacy, [facility] [address] [place] [address] [facility], [facility] [address] [place] [address] 08/06/2024 1:30 PM EDT Office Visit Gynecology/Obstetrics Sondra Randall [address] [place] [address] Yomaira Keenan CRNP [address] [place] [address] Prakash Non Stress Tests [place] [address] [place] [address] 08/13/2024 1:30 PM EDT Office Visit Gynecology/Obstetrics Sondra Lees [address] [place] [address] Yomaira Keenan CRNP [address] [place] [address] Mai Randall Stress Tests [place] [address] [place] [address] 09/11/2024 12:00 PM EDT Office Visit [facility] [address] [place] [address] Jerrod Abraham PA-C [address] [place] [address] Health Maintenance Due Date Last Done Comments [...] ultrasonics 32 weeks gestation of state, incidental Antepartum anemia complicating - Primary Anemia, antepartum Chronic hypertension affecting - Primary Obesity affecting , antepartum, unspecified trimester Ultrasound for screening for growth restriction screening for growth retardation using ultrasonics 36 weeks gestation of state, incidental documented in this encounter Additional Health Concerns Active Problems Noted Date Diagnosed Date OB Reminders 01/21/2024 documented as of this encounter Care Teams Continuing Education Instructor Relationship Specialty Start Date End Date Jerrod Abraham PA-C [address] [facility] [place] [address] PCP - General Physician Cleaning Specialist 01/28/24 documented as of this encounter
--- OUTSIDE RECORDS SUMMARY | 2024-08-13 14:46 | External Medical Summary ---
Author Name Unknown Address Unknown Organization K01:[facility] - [address] [place] [address] Laboratory Report Ordering Provider Test Date Status MIKE CONN 07/23/2024 14:12:40 Final Observation Date Value Abnormality Reference (Units ) Status Vitamin B12 07/23/2024 14:12:40 023 395-6865 (pg/mL) Final Performing Location [facility] - [address] [place] [address]
--- OUTSIDE RECORDS SUMMARY | 2024-08-13 14:46 | External Medical Summary ---
Author Name Unknown Address Unknown Organization K0G:[facility] - [address] [place] [address] Laboratory Report Ordering Provider Test Date Status JUAN QUINTANILLA 07/30/2024 13:33:00 Final Observation Date Value Abnormality Reference (Units ) Status Color of Urine by Auto 07/30/2024 13:33:00 Yellow Light Yellow, Yellow Final Clarity, Urine 07/30/2024 13:33:00 Clear Clear Final Glucose [Mass/volume] in Urine by Automated test strip 07/30/2024 13:33:00 Negative Negative (mg/dL) Final Bilirubin.total [Presence] in Urine by Automated test strip 07/30/2024 13:33:00 Negative Negative Final Ketones [Mass/volume] in Urine by Automated test strip 07/30/2024 13:33:00 Negative Negative (mg/dL) Final Specific gravity, Urine 07/30/2024 13:33:00 1.015 1.003-1.030 Final Hemoglobin [Presence] in Urine by Automated test strip 07/30/2024 13:33:00 Negative Negative Final pH, Urine 07/30/2024 13:33:00 7.0 5.0, 5.5, 6.0, 6.5, 7.0, 7.5 (units) Final Protein [Mass/volume] in Urine by Automated test strip 07/30/2024 13:33:00 Negative Negative (mg/dL) Final Urobilinogen, Urine 07/30/2024 13:33:00 0.2 0.2, 1.0 (mg/dL) Final Nitrite [Presence] in Urine by Automated test strip 07/30/2024 13:33:00 Negative Negative Final Leukocyte esterase [Presence] in Urine by Automated test strip 07/30/2024 13:33:00 Trace Abnormal Negative Final Performing Location [facility] 0 - [address] [place] [address]
--- OUTSIDE RECORDS SUMMARY | 2024-08-13 14:46 | External Medical Summary ---
Author Name Unknown Address Unknown Organization K01:[facility] - [address] [place] [address] Laboratory Report Ordering Provider Test Date Status MIKE CONN 07/23/2024 14:12:40 Final Observation Date Value Abnormality Reference (Units ) Status Ferritin 07/23/2024 14:12:40 437 Above high normal 13 -150 (ng/mL) Final Performing Location [facility] - [address] [place] [address]
--- OUTSIDE RECORDS SUMMARY | 2024-08-13 14:46 | External Medical Summary | Summary of Care ---
Author Name Unknown Organization [facility] Address [address] [place] [address] Phone [phone] Care Team Providers Care Fiberglass Autobody Repairer Name Role Phone Jerrod Abraham PA-C Primary Care Provide r Encounter Details Date Type Department Care Team (Late st Contact Info) Description 07/24/2024 11:00 AM EDT Office Visit Chart Collector Obstetrics Maternal Medicine, [address] [place] [address] Ronaldo Gloriakulwinder Henderson, DO [address] [place] [address] Chronic hypertension affecting *; Obesity [...] assessment of proteinuria (24-hour urine protein or hmdbwwm-ms-cxjruntfya ratio) and CBC, serum AST/ALT/creatinine. If patient [...] preeclamptic labs with CBC, serum AST/ALT/creatinine and biflmpo-wk-lrgmergpeu ratio or 24-hour urine protein JONAH if [...] mRNA, LNP-s, No Pre serve, 2-Dose Series ([facility]) 04/01/2021,05/21/2020,05/03/2020 DTaP Dipth/Tet/Acell Pertussis (Infanrix), Peds 10/19/2004,07/23/2000,1999,07/04,1999 [...] money to get more. 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 Not [...] Randall [address] [place] [address] Yomaira Keenan CRNP [address] [place] [address] Mai Randall Stress Tests [place] [address] [place] [address] 08/06/2024 1:30 PM EDT Office Visit Gynecology/Obstetrics Sondra Randall [address] [place] [address] Yomaira Keenan CRNP [address] [place] [address] Mai Randall Stress Tests [place] [address] [place] [address] 08/13/2024 1:30 PM EDT Office Visit Gynecology/Obstetrics Sondra Randall [address] [place] [address] Yomaira Keenan CRNP [address] [place] [address] Mai Randall Stress Tests [place] [address] [place] [address] 09/11/2024 12:00 PM EDT Office Visit [facility] [address] [place] [phone] Jerrod Abraham PA-C [address] [facility] [place] [address] Health Maintenance Due Date Last Done Comments [...] documented as of this encounter Care Teams Fiberglass Autobody Repairer Relationship Specialty Start Date End Date Jerrod Abraham PA-C [address] [facility] [place] [address] PCP - General Physician Non Destructive Testing Scientist 01/28/24 documented as of this encounter
--- OUTSIDE RECORDS SUMMARY | 2024-08-13 14:46 | External Medical Summary | Summary of Care ---
Author Name Unknown Organization [facility] Address [address] [facility] [address] Phone [phone] Care Team Providers Care Boatbuilder Wood Name Role Phone Jerrod Abraham PA-C Primary Care Provide r Reason for Visit * Reason Comments Outpatient Testing Encounter Details Date Type Department Care Team (Late st Contact Info) Description 07/23/2024 2:20 PM EDT Laboratory Laboratory, [facility] [address] [facility] [place] [id number] [facility] [address] [place] [address] Antepartum anemia complicating Allergies No known active [...] assessment of proteinuria (24-hour urine protein or pphrevi-lp-zeridwkotv ratio) and CBC, serum AST/ALT/creatinine. If patient [...] preeclamptic labs with CBC, serum AST/ALT/creatinine and hshdzlg-lz-jqudlsjfir ratio or 24-hour urine protein JONAH if [...] mRNA, LNP-s, No Pre serve, 2-Dose Series ([employer]) 04/01/2021,05/21/2020,05/03/2020 DTaP Dipth/Tet/Acell Pertussis (Infanrix), Peds 10/19/2004,07/23/2000,1999,04/27 [...] money to get more. Never true 04/01/2024 [place] Depression Scale Answer Date Recorded [place] Depression Scale Total 2 01/21/2024 The thought [...] No 04/01/2024 Does the household have a [facility] health[facility] source of income? 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 documented as of this encounter Plan of Treatment Upcoming Encounters Date Type Department Care Team (Late st Contact Info) Description 07/24/2024 9:30 AM EDT Pharmacy Pharmacy, [place] [address] [place], [place] [id number] Clinic, [facility] [address] [place] [address] 07/24/2024 11:00 AM EDT Imaging Maternal Medicine Imaging, Yamileth Randall [address] [place] [address] 07/24/2024 11:00 AM EDT Office Visit [facility] Obstetrics Maternal Medicine, Yamileth Lees [address] [place] [address] Gloria Higgins, [address] [place] [address] 07/30/2024 1:30 PM EDT Office Visit Gynecology/Obstetrics EmileTatiarmand Lees [address] [place] [address] Yomaira Keenan CRNP [address] [place] [address] Prakash Non Stress Tests [place] [address] [place] [address] 08/06/2024 1:30 PM EDT Office Visit Gynecology/Obstetrics Emilefarrukh Randall [address] [place] [address] Yomaira Keenan CRNP [address] [place] [address] Prakash Non Stress Tests [place] [address] [place] [address] 08/13/2024 1:30 PM EDT Office Visit Gynecology/Obstetrics Baptistefarrukh Lees [address] [place] [address] Yomaira Keenan CRNP [address] [place] [address] Randall, Non Stress Tests Yamileth [address] [place] [address] 09/11/2024 12:00 PM EDT Office Visit Family [facility] [address] [place] [address] Jerrod Abraham PA-C [address] [place] [address] Pending Results Name Type Priority Associated Diagnoses Date /Time IRON SCREEN, INCLUDING TIBC Lab Routine Antepartum anemia complicating 07/23/2024 2:12 PM EDT FERRITIN Lab Routine Antepartum anemia complicating 07/23/2024 2:12 PM EDT FOLIC ACID Lab Routine Antepartum anemia complicating 07/23/2024 2:12 PM EDT VITAMIN B12 Lab Routine Antepartum anemia complicating 07/23/2024 2:12 PM EDT Health Maintenance Due Date Last Done Comments Depression Screening 11/27/2020 11/28/2019 COVID-19 Vaccine ( season) 2024 04/01/2021, 05/21/2020, 05/03/2020 GFR 05/29/2025 05/29/2024, 090 01/2024, 05/10/2020, Additional history exists Pap Smear [...] Procedure Name Priority Date/Time Associated Diagnosis Comments DIFFERENTIAL, AUTOMATED Routine 07/23/2024 2:12 PM EDT Antepartum anemia complicating RETICULOCYTE PANEL Routine 07/23/2024 2: 12 PM EDT Antepartum anemia complicating CBC Routine 07/23/2024 2:12 PM EDT Antepartum anemia complicating CBC Routine 07/23/2024 2:12 PM EDT Antepartum anemia complicating documented in this encounter Results * (ABNORMAL) DIFFERENTIAL, AUTOMATED (07/23/2024 2:12 PM EDT) WBC 10.37 4.00 - 10.80 K/uL 07/23/2024 2:21 PM EDT LABORATORY [place] [facility] Neutrophils % 72.1 40.0 - 75.0 % 07/23/2024 2:21 PM EDT LABORATORY [place] [facility] Lymphocytes % 17.3(L) 18.0 - 42.0 % 07/23/2024 2:21 PM EDT LABORATORY [place] [facility] Monocytes % 9.3 1.0 - 11.0 % 07/23/2024 2:21 PM EDT LABORATORY [place] [facility] Eosinophils % 1.0 0.0 - 6.0 % 07/23/2024 2:21 PM EDT LABORATORY [place] [facility] Basophils % 0.3 0.0 - 2.0 % 07/23/2024 2:21 PM EDT LABORATORY [place] [facility] Absolute Neutrophils 7.49 1.80 - 7.70 K/uL 07/23/2024 2:21 PM EDT LABORATORY [place] [facility] Absolute Lymphocytes 1.79 1.00 - 4.80 K/ul 07/23/2024 2:21 PM EDT LABORATORY [place] [facility] Absolute Monocytes 0.96 0.00 - 1.10 K/uL 07/23/2024 2:21 PM EDT LABORATORY [place] [facility] Absolute Eosinophils 0.10 0.00 - 0.70 K/uL 07/23/2024 2:21 PM EDT LAB[facility]ATORY [place] [facility] Absolute Basophils 0.03 0.00 - 0.20 K/uL 07/23/2024 2:21 PM EDT LAB[facility]ATORY [place] [facility] Blood Venous blood specimen / Unknown Venipuncture / Unknown 07/23/2024 2:12 PM EDT 07/23/2024 2:12 PM EDT Soheila Edmondson [facility] LAB BLOOD ORDERABLES Final Res ult LABORATORY [place] [address] [place] [address] * (ABNORMAL) CBC (07/23/2024 2:12 PM EDT) [facility] WBC 10.37 4.00 - 10.80 K/uL 07/23/2024 2:21 PM EDT LABORATORY [place] [facility] RBC 3.80 3.85 - 5.15 M/uL 07/23/2024 2:21 PM EDT LAB[facility]ATORY [place] [facility] HGB 12.0 12.0 - 15.3 g/dL 07/23/2024 2:21 PM EDT LAB[facility]ATORY [place] [facility] HCT 35.7(L) 36.0 - 45.2 % 07/23/2024 2:21 PM EDT LABORATORY [place] [facility] MCV 93.9 81.5 - 97.5 fL 07/23/2024 2:21 PM EDT LAB[facility]ORY [place] [facility] MCH 31.6 27.0 - 34.0 pg 07/23/2024 2:21 PM EDT [facility] [place] [facility] MCHC 33.6 32.0 - 36.0 g/dL 07/23/2024 2:21 PM EDT [facility] [place] RDW 13.8 11.5 - 15.5 % 07/23/2024 2:21 PM EDT [facility] [place] [facility]10 PLT 250 140 - 400 K/uL 07/23/2024 2:21 PM EDT [facility] [place] MPV 11.1 6.6 - 11.1 fL 07/23/2024 2:21 PM EDT LAB[facility]ORY [place] 5710 Blood Venous blood specimen / Unknown Venipuncture / Unknown 07/23/2024 2:12 PM EDT 07/23/2024 2:12 PM EDT us Soheila Edmondson [facility] LAB BLOOD ORDERABLES Final Res ult [facility] [place] [address] [place] [address] * (ABNORMAL) RETICULOCYTE PANEL (07/23/2024 2:12 PM EDT) Reticulocyte Percent 2.54(H) 0.80 - 1.90 % 07/23/2024 8:25 PM EDT [facility] Absolute Reticulocyte 99.3 31.3 - 100.1 K/uL 07/23/2024 8:25 PM EDT [facility] Immature Reticulocyte Fraction 12.9 2.5 - 20.6 % 07/23/2024 8:25 PM EDT [facility] Reticulocyte Hemoglobin 34.6 29.7 - 37.4 pg 07/23/2024 8:25 PM EDT [facility] Blood Venous blood specimen / Unknown Venipuncture / Unknown 07/23/2024 2:12 PM EDT 07/23/2024 2:12 PM EDT us Soheila Edmondson [facility] LAB BLOOD ORDERABLES Final Res ult [facility] [address] [facility] [place] [address] documented in this encounter Visit Diagnoses Diagnosis [...] gestation of state, incidental Antepartum anemia complicating Anemia, antepartum documented in this encounter Additional Health Concerns Active Problems Noted Date Diagnosed Date OB Reminders 01/21/2024 documented as of this encounter Care Teams Boatbuilder Wood Relationship Specialty Start Date End Date Jerrod Abraham PA-C [address] [facility] [place] [address] PCP - General Physician Row Boss Hoeing 01/28/24 documented as of this encounter
--- OUTSIDE RECORDS SUMMARY | 2024-08-13 14:46 | External Medical Summary ---
Author Name Unknown Address Unknown Organization K01:LABORATORY [facility] - [address] [place] [address] Laboratory Report Ordering Provider Test Date Status SENIAMIKE RIVAS 07/23/2024 14:12:40 Final Observation Date Value Abnormality Reference (Units ) Status Retic, % (auto) 07/23/2024 14:12:40 2.54 Above high normal 0.80-1.90 (%) Final Reticulocytes, Absolute 07/23/2024 14:12:40 99.3 31.3-100.1 (K/uL) Final Reticulocyte fraction, immature 07/23/2024 14:12:40 12.9 2.5-20.6 (%) Final Reticulocyte HGB 07/23/2024 14:12:40 34.6 29.7-37.4 (pg) Final Performing Location LABORATORY [facility] - [address] [place] [address]
--- OUTSIDE RECORDS SUMMARY | 2024-08-13 14:46 | External Medical Summary ---
Author Name Unknown Address Unknown Organization K01:[facility] [place] [address] [place] [address] Laboratory Report Ordering Provider Test Date Status SENIAMIKE 07/23/2024 14:12:40 Final Observation Date Value Abnormality Reference (Units ) Status Iron 07/23/2024 14:12:40 79 33-151 (ug /dL) Final Iron-binding capacity 07/23/2024 14:12:40 314 250-425 (ug/dL) Final Transferrin Sat % 07/23/2024 14:12:40 25 15 -55 (%) Final Performing Location LABORATORY C - [address] [place] [address]
--- OUTSIDE RECORDS SUMMARY | 2024-08-13 14:46 | External Medical Summary | Summary of Care ---
Author Name Unknown Organization [facility] Address [address] [address] Phone [phone] Care Team Providers Care Field Test Engineer Name Role Phone Jerrod Abraham PA-C Primary Care Provide r Reason for Visit * Reason Comments Return Visit Non Stress Test Encounter Details Date Type Department Care Team (Late st Contact Info) Description 07/23/2024 1:30 PM EDT Office Visit Gynecology/Obstetric s [facility] [address] [place] [address] Yomaira Keenan CRNP [address] [place] [address] Randall, Non Stress Tests [facility] [address] [place] [address] Supervision of high risk in third trimester*; [...] assessment of proteinuria (24-hour urine protein or xfvbvrj-kc-mtbgqytrvj ratio) and CBC, serum AST/ALT/creatinine. If patient [...] preeclamptic labs with CBC, serum AST/ALT/creatinine and fsfnrkc-ec-gunzvybhyj ratio or 24-hour urine protein JONAH if [...] mRNA, LNP-s, No Pre serve, 2-Dose Series (Hurray!) 04/01/2021,05/21/2020,05/03/2020 DTaP Dipth/Tet/Acell Pertussis (Infanrix), Peds 10/19/2004,07/23/2000,1999,07/04,1999 [...] money to get more. 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 BP is good. GBS today. Rail Transit Operator Documentation Provider requested video game script writer. Name of video game script writer: Laura CHILDERS scheduled. ASSESSMENT assessment with Non-stress [...] Description 07/24/2024 9:30 AM EDT Pharmacy Pharmacy, Mobile [address] [place] [facility] [place] [address] Clinic, [facility] [address] [place] [address] 07/24/2024 11:00 AM EDT Imaging Maternal Medicine Imaging, [place] [phone] 07/24/2024 11:00 AM EDT Office Visit Milling Machine Operator Obstetrics Maternal Medicine, [place] [address] Gloria Higgins, DO [address] [facility] [place], [place] [address] 07/30/2024 1:30 PM EDT Office Visit Gynecology/Obstetrics [facility] [address] [place] [address] Yomaira Keenan CRNP [address] [place] [address] Prakash Non Stress Tests [facility] [address] [place] [address] 08/06/2024 1:30 PM EDT Office Visit Gynecology/Obstetrics [facility] [address] [place] [address] Yomaira Keenan CRNP [address] [place] [address] Prakash Non Stress Tests [facility] [address] [place] [address] 08/13/2024 1:30 PM EDT Office Visit Gynecology/Obstetrics [facility] [address] [place] [address] Yomaira Keenan CRNP [address] [place] [address] Prakash Non Stress Tests [facility] [address] [place] [address] 09/11/2024 12:00 PM EDT Office Visit Family [facility] [place] [facility] [address] [place] [address] Jerrod Abraham PA-C [address] [place] [address] Pending Results Name Type Priority Associated Diagnoses [...] Comments URINALYSIS OBSTETRICS, POINT OF CARE JONAH 07/23/2024 1:27 PM EDT documented in this [...] PM EDT LAB[facility] [place] [facility] Specific [place], Urine 1.010 1.003 - 1.030 07/23/2024 1:29 [...] [place] 57-10 [address] [place] [address] documented in this encounter Visit Diagnoses Diagnosis [...] documented as of this encounter Care Teams Field Test Engineer Relationship Specialty Start Date End Date Jerrod Abraham PA-C [address] [facility] [place] [address] PCP - General Physician Temperer 01/28/24 documented as of this encounter
--- OUTSIDE RECORDS SUMMARY | 2024-08-13 14:46 | External Medical Summary | Summary of Care ---
Author Name Unknown Organization [facility] Address [address] [facility] [address] Phone [phone] Care Team Providers Care Photo Print Specialist Name Role Phone Jerrod Abraham PA-C Primary Care Provide r Reason for Visit * Reason Comments Medication Administration Infed Encounter Details Date Type Department Care Team (Latest Contact Info) Description 06/20/2024 11:45 AM EST Hem/Onc Treatment Hematology/Oncology Treatment, [address] [place] [address] Magalys, Chair 2 Hem Onc [facility] [address] [place], [place] [id number] Antepartum anemia complicating * Allergies No known [...] assessment of proteinuria (24-hour urine protein or jknpnta-kd-hqnptdmznz ratio) and CBC, serum AST/ALT/creatinine. If patient [...] preeclamptic labs with CBC, serum AST/ALT/creatinine and jccmvto-zg-gvornroiqo ratio or 24-hour urine protein JONAH if [...] mRNA, LNP-s, No Pre serve, 2-Dose Series ([employer]) 04/01/2021,05/21/2020,05/03/2020 DTaP Dipth/Tet/Acell Pertussis (Infanrix), Peds 10/19/2004,07/23/2000,1999,04/27 [...] money to get more. Never true 04/01/2024 [place] Depression Scale Answer Date Recorded [place] Depression Scale Total 2 01/21/2024 The thought [...] No 04/01/2024 Does the household have a up health systemr source of income? 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 Patient tolerated well. No complaints. IV site removed and dry dressing applied. Goals: Patient will remain free from injury. Possible barriers to meeting goals: ambulating with IV pole Stability of the patient: Moderately stable - low risk of patient condition declining or worsening Summary regarding today's goals: Met: Patient remained free from harm/injury during treatment. Patient left facility in stable condition. * Celena Gong RN - 06/20/2024 11:57 AM EST Chair 5, patient here for Infed infusion. Patient oriented to room and process. Patient with no complaints. IV started, patient tolerated well. Test dose of Infed given to patient. Safety and Risk for Injury Patient will remain free from injury. Ensure appropriate safety devices are available. Provide and maintain safe environment. Patient instructed on use of heat and massage functions where applicable. Patient shown how to operate the heat function of the chair and to alert nursing staff if the chair feels too warm. Patient instructed on the risk of potential perry while using the heat function. documented in this encounter Plan of Treatment Upcoming Encounters Date Type Department Care Team (Late st Contact Info) Description 07/24/2024 9:30 AM EDT Pharmacy Pharmacy, [address] [address] [facility], [place] [address] [place] [address] 07/24/2024 11:00 AM EDT Imaging Maternal Medicine Imaging, Yamileth Randall [address] [place] [phone] 07/24/2024 11:00 AM EDT Office Visit Plate Roller Obstetrics Maternal Medicine, Yamileth [facility] [address] [place] [address] Gloria Higgins, DO [address] [place] [address] 07/30/2024 1:30 PM EDT Office Visit Gynecology/Obstetrics [facility] [address] [place] [address] Yomaira Keenan CRNP [address] [place] [address] Randall, Non Stress Tests [facility] [address] [place] [address] 08/06/2024 1:30 PM EDT Office Visit Gynecology/Obstetrics [facility] [address] [place] [address] Yomaira Keenan CRNP [address] [place] [address] Randall, Non Stress Tests [facility] [address] [place] [address] 08/13/2024 1:30 PM EDT Office Visit Gynecology/Obstetrics [facility] [address] [place] [address] Yomaira Keenan CRNP [address] [place] [address] Randall, Non Stress Tests [facility] [address] [place] [address] 09/11/2024 12:00 PM EDT [facility] [place] [facility] [address] [place] [address] Jerrod Abraham PA-C [address] [place] [address] Health Maintenance Due Date Last Done [...] ultrasonics 28 weeks gestation of state, incidental Antepartum anemia complicating - Primary Anemia, antepartum Obesity affecting , antepartum, unspecified trimester- Primary Chronic hypertension affecting Ultrasound for screening for growth restriction screening for growth retardation using ultrasonics 32 weeks gestation of state, incidental documented in this encounter Administered Medications Inactive Administered Medications - up to 3 most recent administrations Medication Order MAR Action Action Date Dose Rate Site Iron Dextran (Infed) 975 mg in NSS 250 mL INFUSION 975 mg, IV Piggyback, ONCE, 1 dose, On Sun06/20/24 at 1315, Administer over 1 Hours, - Administer iron dextran infusion bag over 1 hour - Monitor for infusion reactions with vitals at 30 minutes and 60 minutes after starting the infusion. - If patient develops sign/symptoms of reaction or vital signs outside normal limits: 1) STOP infusion 2) CONTACT physicianIndications:Antepa rtum anemia complicating Start Infusion 06/20/2024 12:13 PM EST 975 mg 274.5 mL/hr Iron Dextran (Infed) IV Push TEST DOSE 25 mg IV Push, Administer over 0.5 Minutes, -Educate patient on signs/symptoms of infusion reaction -Administer 25 mg test dose of iron dextran before infusion bag -Observe patient for signs/symptoms of reaction with vital signs before test dose, then at 15 minutes after administering the test dose -If patient tolerates test dose with no reaction, proceed with iron dextran infusion -HOLD infusion and contact physician immediately if patient reacts to test dose, ONCE, 1 dose, On Sun06/20/24 at 1300Indications:Antepartum anemia complicating Given 06/20/2024 11:52 AM EST 25 mg NSS infusion Intravenous, at 50 mL/hr, PRN, Starting on Sun06/20/24 at 1300, Until Sun06/20/24 at 1738, Maintenance lineIndications:Antepartum anemia complicating Start Infusion 06/20/2024 11:51 AM EST 50 mL/hr documented in this encounter Additional Health Concerns Active Problems Noted Date Diagnosed Date OB Reminders 01/21/2024 documented as of this encounter Care Teams Photo Print Specialist Relationship Specialty Start Date End Date Jerrod Abraham PA-C [address] [facility] [place] [address] PCP - General Physician Drum Builder 01/28/24 documented as of this encounter
--- OUTSIDE RECORDS SUMMARY | 2024-08-13 14:47 | External Medical Summary ---
Author Name Unknown Address Unknown Organization [facility] [place] [address] Laboratory Report Ordering Provider Test Date Status JUAN QUINTANILLA 07/23/2024 13:27:00 Final Observation Date Value Abnormality Reference (Units ) Status Color of Urine by Auto 07/23/2024 13:27:00 Yellow Light Yellow, Yellow Final Clarity, Urine 07/23/2024 13:27:00 Clear Clear Final Glucose [Mass/volume] in Urine by Automated test strip 07/23/2024 13:27:00 Negative Negative (mg/dL) Final Bilirubin.total [Presence] in Urine by Automated test strip 07/23/2024 13:27:00 Negative Negative Final Ketones [Mass/volume] in Urine by Automated test strip 07/23/2024 13:27:00 Negative Negative (mg/dL) Final Specific gravity, Urine 07/23/2024 13:27:00 1.010 1.003-1.030 Final Hemoglobin [Presence] in Urine by Automated test strip 07/23/2024 13:27:00 Negative Negative Final pH, Urine 07/23/2024 13:27:00 6.5 5.0, 5.5, 6.0, 6.5, 7.0, 7.5 (units) Final Protein [Mass/volume] in Urine by Automated test strip 07/23/2024 13:27:00 Negative Negative (mg/dL) Final Urobilinogen, Urine 07/23/2024 13:27:00 0.2 0.2, 1.0 (mg/dL) Final Nitrite [Presence] in Urine by Automated test strip 07/23/2024 13:27:00 Negative Negative Final Leukocyte esterase [Presence] in Urine by Automated test strip 07/23/2024 13:27:00 Negative Negative Final Performing Location [facility] [address] - [address] [place] [id number]
--- OUTSIDE RECORDS SUMMARY | 2024-08-13 14:47 | External Medical Summary | Summary of Care ---
Author Name Unknown Organization [facility] Address [address] [place] [address] Phone [phone] Care Team Providers Care Awning Hanger Name Role Phone Jerrod Abraham PA-C Primary Care Provide r Encounter Details Date Type Department Care Team (Late st Contact Info) Description 06/26/2024 8:00 AM EST Office Visit Sem Manager Obstetrics Maternal Medicine, [address] [place] [address] Ronaldo Gloriakulwinder Henderson, DO [address] [place] [address] Obesity affecting , antepartum, unspecified trimester*; Chronic hypertension affecting ; Ultrasound for screening for growth restriction; 32 weeks gestation of Allergies No known active allergiesdocumented as of this encounter (statuses as of 06/26/2024) Medications 28-0.8 MG Oral Tablet Take by [...] as of this encounter (statuses as of 06/26/2024) Active Problems Problem Noted Date Diagnosed Date [...] assessment of proteinuria (24-hour urine protein or idtawfo-cf-wpehizivuq ratio) and CBC, serum AST/ALT/creatinine. If patient [...] preeclamptic labs with CBC, serum AST/ALT/creatinine and upducla-ks-cuhwwnlzik ratio or 24-hour urine protein JONAH if not already done. Recommend anesthesia consult during the antepartum period. Estimated Date of Delivery Comme nts Yes 08/19/2024 Based on last me nstrual period of 11/13/2023 (Exact Date) documented as of this encounter (statuses as of 06/26/2024) Resolved Problems Problem Noted Date Diagnosed Date [...] as of this encounter (statuses as of 06/26/2024) Immunizations Name Administration Dates Next Due COVID-19 [...] money to get more. Never true 04/01/2024 [place] Depression Scale Answer Date Recorded [place] Depression Scale Total 2 01/21/2024 The thought [...] No 04/01/2024 Does the household have a [facility] source [facility] income? 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 Ultrasound for screening for growth restriction 32 weeks gestation of Ultrasound summary: Patient presented at 32w 2d for growth assessment. Normal growth with EFW 1786 g at 20%ile. Normal GAMALIEL at 16.8 cm. Cephalic presentation. I reviewed the ultrasound images. Kaitlynn was given the opportunity to meet with me if she had any questions. Please refer to the ultrasound report for additional details about today's ultrasound examination. RECOMMENDATIONS: Recommend follow up ultrasound with MFM in 4-6 weeks for growth secondary to above indications. See prior formal MFM consultation note. Thank you for allowing us to participate in the care of this patient. Please call with any questions. Gloria Higgins DO 06/26/2024 3:45 PM documented in this encounter Miscellaneous Notes * Assessment & Plan Note - Gloria Higgins DO - 06/26/2024 3:43 PM EST Associated Problem(s): Chronic hypertension affecting BP Readings from Last 5 Encounters: 06/25/24 126/78 06/20/24 120/78 06/09/24 118/72 05/29/24 128/78 05/20/24 130/82 Please titrate medication to maintain goal BP < 140/90. documented in this encounter Plan of Treatment Upcoming Encounters Date Type Department Care Team (Late st Contact Info) Description 07/02/2024 1:30 PM EST Office Visit Gynecology/Obstetrics [facility] [address] [place] [address] Yomaira Keenan CRNP [address] [place] [address] Prakash, Non Stress Tests [facility] [address] [place] [address] 07/09/2024 1:00 PM EST Office Visit Gynecology/Obstetrics Sond[facility] [address] [place] [address] Amanda Howard CRNP [address] [place] [address] Prakash Non Stress Tests [facility] [address] [place] [address] 07/16/2024 1:30 PM EST Office Visit Gynecology/Obstetrics [facility]ond[facility] [address] [place] [address] Yomaira Keenan CRNP [address] [place] [address] Prakash Non Stress Tests [facility] [address] [place] [address] 07/23/2024 1:30 PM EDT Office Visit Gynecology/Obstetrics [facility] [address] [place] [address] Yomiara Keenan CRNP [address] [place] [address] Prakash, Non Stress Tests [facility] [address] [place] [address] 07/24/2024 9:30 AM EDT Pharmacy Pharmacy, [address] [place] [address] [facility], Anemia [address] [facility] [place] [address] 07/24/2024 11:00 AM EDT Imaging Maternal Medicine Imaging, Yamileth Randall [address] [place] [phone] 07/30/2024 1:30 PM EDT Office Visit Gynecology/Obstetrics [facility] [address] [place] [address] Yomaira Keenan CRNP [address] [place] [address] Prakash Non Stress Tests [facility] [address] [place] [address] 08/06/2024 1:30 PM EDT Office Visit Gynecology/Obstetrics [facility]kh [facility] [address] [place] [address] Yomaira Keenan CRNP [address] [place] [address] Prakash Non Stress Tests [facility] [address] [place] [address] 08/13/2024 1:30 PM EDT Office Visit Gynecology/Obstetrics Baptistefarrukh Randall [address] [place] [address] Yomaira Keenan CRNP [address] [place] [address] Prakash Non Stress Tests [facility] [address] [place] [address] 09/11/2024 12:00 PM EDT Office Visit [facility] [place] [facility] Batista [address] [place] [address] Jerrod Abraham PA-C [address] [facility] [place] [address] Health Maintenance Due Date Last Done Comments [...] 08/26/2012, 10/25/2011 MENINGOCOCCAL (MENACTRA/MENVEO) Completed 12/09/2015, 10/25/2011 Gonorrhea / Chlamydia Screen Discontinued 01/21/2024, 11/28/2019, [...] documented as of this encounter Care Teams Awning Hanger Relationship Specialty Start Date End Date Jerrod Abraham PA-C [address] [facility] [place] [address] PCP - General Physician Barrel Finisher 01/28/24 documented as of this encounter
--- OUTSIDE RECORDS SUMMARY | 2024-08-13 14:47 | External Medical Summary ---
Author Name Unknown Address Unknown Organization [facility] [address] [place] [id number] Laboratory Report Ordering Provider Test Date Status MKIE CONN 07/23/2024 14:12:40 Final Observation Date Value Abnormality Reference (Units ) Status WBC, Total 07/23/2024 14:12:40 10.37 4.00-10.8 0 (K/uL) Final RBC 07/23/2024 14:12:40 3.80 3.85-5.15 (M/uL) Final Hemoglobin 07/23/2024 14:12:40 12.0 12.0-15.3 (g/dL) Final HCT 07/23/2024 14:12:40 35.7 Below low normal 36. 0-45.2 (%) Final MCV 07/23/2024 14:12:40 93.9 81.5-97.5 (fL) Final MCH 07/23/2024 14:12:40 31.6 27.0-34.0 (pg) Final MCHC 07/23/2024 14:12:40 33.6 32.0-36.0 (g/dL) Final RDW 07/23/2024 14:12:40 13.8 11.5-15.5 (%) Final Platelets 07/23/2024 14:12:40 250 140-400 (K /uL) Final MPV 07/23/2024 14:12:40 11.1 6.6-11.1 ( fL) Final Performing Location [facility] - [address] [place] [address]
--- OUTSIDE RECORDS SUMMARY | 2024-08-13 14:47 | External Medical Summary | Summary of Care ---
Author Name Unknown Organization [facility] Address [address] [facility] [place] [address] Phone [phone] Care Team Providers Care Instructor Bridge Name Role Phone Jerrod Abraham PA-C Primary Care Provide r Reason for Visit * Reason Comments Return Visit Non Stress Test Encounter Details Date Type Department Care Team (Late st Contact Info) Description 07/02/2024 1:30 PM EST Office Visit Gynecology/Obstetric s [facility] [address] [place] [address] Yomaira Keenan CRNP [address] [place] [address] Randall, Non Stress Tests [facility] [address] [place] [address] Obesity affecting , antepartum, unspecified trimester*; Supervision of high risk in third trimester; Chronic hypertension affecting ; Antepartum anemia complicating Allergies No known active allergiesdocumented as of this encounter (statuses as of 07/02/2024) Medications 28-0.8 MG Oral Tablet Take by [...] as of this encounter (statuses as of 07/02/2024) Active Problems Problem Noted Date Diagnosed Date [...] assessment of proteinuria (24-hour urine protein or vjdpqsq-cn-jievircqca ratio) and CBC, serum AST/ALT/creatinine. If patient [...] preeclamptic labs with CBC, serum AST/ALT/creatinine and bpbxqza-fo-zhgjjxtldf ratio or 24-hour urine protein JONAH if not already done. Recommend anesthesia consult during the antepartum period. Estimated Date of Delivery Comme nts Yes 08/19/2024 Based on last me nstrual period of 11/13/2023 (Exact Date) documented as of this encounter (statuses as of 07/02/2024) Resolved Problems Problem Noted Date Diagnosed Date [...] as of this encounter (statuses as of 07/02/2024) Immunizations Name Administration Dates Next Due COVID-19 mRNA, LNP-s, No Pre serve, 2-Dose Series ([employer]) 04/01/2021,05/21/2020,05/03/2020 DTaP Dipth/Tet/Acell Pertussis ([employer]), Peds 10/19/2004,07/23/2000,1999,04/27 [...] money to get more. 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 Not on file documented as of this encounter Last Filed Vital Signs Vital Sign Reading Time Taken Comments Blood Pressure 118/74 07/02/2024 1:25 PM EST Pulse - - Temperature - - Respiratory Rate - - Oxygen Saturation - - Inhaled Oxygen Concentration - - Weight 123.8 kg (273 lb) 07/02/2024 1:25 PM EST Height - - Body Mass Index 48.36 01/28/2024 4:24 PM EDT documented in this encounter Progress Notes * Yomaira Keenan CRNP - 07/02/2024 1:30 PM EST ASSESSMENT assessment with Non-stress Test completed on 07/02/2024 at 33.1weeks gestation for indication of chronic hypertension heart baseline: 140 bpm Variability: Moderate Decelerations: absent Accelerations: present Contractions: None NST start time: 1322 NST stop time: 1344 NST strip reviewed, interpreted, and approved by OB providerYomaira CRNP . NST strip stored in clinic storage file * Laura Sommers CMA - 07/02/2024 1:25 PM EST [id number] documented in this encounter Plan of Treatment Upcoming Encounters Date Type Department Care Team (Late st Contact Info) Description 07/09/2024 1:00 PM EST Office Visit Gynecology/Obstetrics [facility] [address] [place] [address] Amanda Howard CRNP [address] [place] [address] Mai Randall Stress Tests [facility] [address] [place] [address] 07/16/2024 1:30 PM EST Office Visit Gynecology/Obstetrics [facility] [address] [place], [place] [address] Yomaira Keenan CRNP [address] [place] [address] Prakash Non Stress Tests [place] [address] 07/23/2024 1:30 PM EDT Office Visit Gynecology/Obstetrics Sondra Ranadll [address] [place] [address] Yomaira Keenan CRNP [address] [place] [address] Prakash Non Stress Tests Yamileth [address] [place] [address] 07/24/2024 9:30 AM EDT Pharmacy Pharmacy, [place] [address] [place] [address] [place] [address] [place] [address] 07/24/2024 11:00 AM EDT Imaging Maternal Medicine Imaging, [facility]ileth [address] [place] [phone] 07/30/2024 1:30 PM EDT Office Visit Gynecology/Obstetrics [facility] [address] [place] [address] Yomaira Keenan CRNP [address] [place] [address] Prakash Non Stress Tests Yamileth [address] [place] [address] 08/06/2024 1:30 PM EDT Office Visit Gynecology/Obstetrics [facility] [address] [place], [place] [address] Yomaira Keenan CRNP [address] [place], [place] [address] Randall, Non Stress Tests Yam[facility] [address] [place] [address] 08/13/2024 1:30 PM EDT Office Visit Gynecology/Obstetrics [facility] [place] [address] [place] [address] Yomaira Keenan CRNP [address] [place], [place] [address] Prakash Non Stress Tests Yam[facility] [address] [place] [address] 09/11/2024 12:00 PM EDT Office Visit Family [facility] [address] [place] [address] Jerrod Abraham PA-C [address] [place] [address] Health Maintenance Due Date Last Done Comments [...] Diagnosis Comments URINALYSIS OBSTETRICS, POINT OF CARE [facility] 07/02/2024 1:28 PM EST documented in this encounter Results * (ABNORMAL) URINALYSIS OBSTETRICS, POINT OF CARE (07/02/2024 1:28 PM EST) Color, Urine Yellow Light Yellow, Yellow 07/02/2024 1:30 PM EST [facility] [place] [facility] Clarity, Urine Clear Clear 07/02/2024 1:30 PM EST [facility] [place] [facility] Glucose, Urine Negative Negative mg/dL 07/02/2024 1:30 PM EST [facility] [place] [facility] Bilirubin, Urine Negative Negative 07/02/2024 1:30 PM EST [facility] [place] [facility] Ketone, Urine Negative Negative mg/dL 07/02/2024 1:30 PM EST [facility] [place] [facility] Specific [place], Urine 1.025 1.003 - 1.030 07/02/2024 1:30 PM EST [facility] [place] [facility] Blood, Urine Negative Negative 07/02/2024 1:30 PM EST [facility] [place] [facility] pH, Urine 7.0 5.0, 5.5, 6.0, 6.5, 7.0, 7.5 units 07/02/2024 1:30 PM EST [facility] [place] [facility] Protein, Urine Trace(A) Negative mg/dL 07/02/2024 1:30 PM EST [facility] [place] [facility] Urobilinogen, Urine 0.2 0.2, 1.0 mg/dL 07/02/2024 1:30 PM EST [facility] [place] [facility] Nitrite, Urine Negative Negative 07/02/2024 1:30 PM EST [facility] [place] [facility] Esterase, Urine Negative Negative 07/02/2024 1:30 PM EST [facility] [place] [facility] Urine 07/02/2024 1:28 PM EST 07/02/2024 1:30 PM EST us Yomaira JIMENEZ LAB POINT OF CARE TE ST DOCKED DEVICE UNSOLICITED RESULTS Final Result Performing Organization Address City/State/[facility] Co de Phone Number [facility] [place] [facility] [place] [address] documented in this encounter Visit Diagnoses Diagnosis [...] ultrasonics 32 weeks gestation of state, incidental Obesity affecting , antepartum, unspecified trimester- Primary Supervision of high risk in third trimester Unspecified high-risk Chronic hypertension affecting Antepartum anemia complicating Anemia, antepartum documented in this encounter Additional Health Concerns Active Problems Noted Date Diagnosed Date OB Reminders 01/21/2024 documented as of this encounter Care Teams Instructor Bridge Relationship Specialty Start Date End Date Jerrod Abraham PA-C [address] [facility] [place] [phone] PCP - General Physician Client Support Professional 01/28/24 documented as of this encounter
--- OUTSIDE RECORDS SUMMARY | 2024-08-13 14:47 | External Medical Summary ---
Author Name Unknown Address Unknown Organization [facility] - [address] [place] [id number] Laboratory Report Ordering Provider Test Date Status MIKE CONN 07/23/2024 14:12:40 Final Observation Date Value Abnormality Reference (Units ) Status SYNC LEUKOCYTES IN BLOOD BY AUTOMATED COUNT 07/23/2024 14:12:40 10.37 4.00-10.80 (K/uL) Final Segs 07/23/2024 14:12:40 72.1 40.0-75.0 (%) Final Lymphs % 07/23/2024 14:12:40 17.3 Below low normal 18.0-42.0 (%) Final Monos 07/23/2024 14:12:40 9.3 1.0-11.0 (%) Final Eosinophils 07/23/2024 14:12:40 1.0 0.0-6.0 (%) Final Basos 07/23/2024 14:12:40 0.3 0.0-2.0 (%) Final Absolute Segs 07/23/2024 14:12:40 7.49 1.80-7.70 (K/uL) Final Lymphs, absolute 07/23/2024 14:12:40 1.79 1.00-4.80 (K/ul) Final Monos, Abs 07/23/2024 14:12:40 0.96 0.00-1.10 (K/uL) Final Eos, Abs 07/23/2024 14:12:40 0.10 0.00-0.70 (K/uL) Final Basos, Abs 07/23/2024 14:12:40 0.03 0.00-0.20 (K/uL) Final Performing Location [facility] 0 - [address] [place] [id number]
--- OUTSIDE RECORDS SUMMARY | 2024-08-13 14:47 | External Medical Summary ---
Author Name Unknown Address Unknown Organization [facility] - [address] [place] [id number] Laboratory Report Ordering Provider Test Date Status JUAN QUINTANILLA 07/02/2024 13:28:00 Final Observation Date Value Abnormality Reference (Units ) Status Color of Urine by Auto 07/02/2024 13:28:00 Yellow Light Yellow, Yellow Final Clarity, Urine 07/02/2024 13:28:00 Clear Clear Final Glucose [Mass/volume] in Urine by Automated test strip 07/02/2024 13:28:00 Negative Negative (mg/dL) Final Bilirubin.total [Presence] in Urine by Automated test strip 07/02/2024 13:28:00 Negative Negative Final Ketones [Mass/volume] in Urine by Automated test strip 07/02/2024 13:28:00 Negative Negative (mg/dL) Final Specific gravity, Urine 07/02/2024 13:28:00 1.025 1.003-1.030 Final Hemoglobin [Presence] in Urine by Automated test strip 07/02/2024 13:28:00 Negative Negative Final pH, Urine 07/02/2024 13:28:00 7.0 5.0, 5.5, 6.0, 6.5, 7.0, 7.5 (units) Final Protein [Mass/volume] in Urine by Automated test strip 07/02/2024 13:28:00 Trace Abnormal Negative (mg/dL) Final Urobilinogen, Urine 07/02/2024 13:28:00 0.2 0.2, 1.0 (mg/dL) Final Nitrite [Presence] in Urine by Automated test strip 07/02/2024 13:28:00 Negative Negative Final Leukocyte esterase [Presence] in Urine by Automated test strip 07/02/2024 13:28:00 Negative Negative Final Performing Location [facility] 0 - [address] [place] [id number]
--- OUTSIDE RECORDS SUMMARY | 2024-08-13 14:47 | External Medical Summary | Summary of Care ---
Author Name Unknown Organization [facility] Address [address] [facility] [address] Phone [phone] Care Team Providers Care Railroad Operator Name Role Phone Jerrod Abraham PA-C Primary Care Provide r Reason for Visit * Reason Comments Medication Administration Infed Encounter Details Date Type Department Care Team (Latest Contact Info) Description 06/20/2024 11:45 AM EST Hem/Onc Treatment Hematology/Oncology Treatment, [address] [place] [address] Magalys, Chair 2 Hem Onc [facility] [address] [place], [place] [phone] Antepartum anemia complicating * Allergies No known active allergiesdocumented as of this encounter (statuses as of 06/20/2024) Medications 28-0.8 MG Oral Tablet Take by [...] as of this encounter (statuses as of 06/20/2024) Active Problems Problem Noted Date Diagnosed Date [...] 10/25/20 110/70 04/21/20 116/82 Assessment & Plan (05/29/2024 10:03 AM EST): [...] assessment of proteinuria (24-hour urine protein or mkquhon-uq-bcrtocqzqw ratio) and CBC, serum AST/ALT/creatinine. If patient [...] Results Component Value Date/Time HEMOGLOBIN A1C - [facility] 5.2 06/05/2023 09:00 AM Assessment & Plan [...] preeclamptic labs with CBC, serum AST/ALT/creatinine and qmornaj-fn-qaowotpmwm ratio or 24-hour urine protein JONAH if not already done. Recommend anesthesia consult during the antepartum period. Estimated Date of Delivery Comme nts Yes 08/19/2024 Based on last me nstrual period of 11/13/2023 (Exact Date) documented as of this encounter (statuses as of 06/20/2024) Resolved Problems Problem Noted Date Diagnosed Date [...] as of this encounter (statuses as of 06/20/2024) Immunizations Name Administration Dates Next Due COVID-19 [...] money to get more. 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 Not [...] Care Team (Late st Contact Info) Description 06/25/2024 9:15 AM EST Office Visit Gynecology/Obstetrics Sond[facility] [address] [place] [address] Yomaira Keenan CRNP [address] [place] [address] Mai Randall Stress Tests [facility] [address] [place] [address] 06/25/2024 10:00 AM EST Pharmacy Pharmacy, [place] [address] [place] [address] Clinic, [facility] [address] [place] [address] 06/26/2024 8:00 AM EST Imaging Maternal Medicine Imaging, Yamileth [place] [address] [place] [phone] 07/02/2024 1:30 PM EST Office Visit Gynecology/Obstetrics Sond[facility] [address] [place], [place] [address] Yomaira Keenan CRNP [address] [place], [place] [address] Prakash Non Stress Tests [facility] [address] [place], [place] [address] 07/09/2024 1:00 PM EST Office Visit Gynecology/Obstetrics Sond[facility] [place] [address] [place] [address] Amanda Howard CRNP [address] [place] [address] Prakash Non Stress Tests [facility] [address] [place] [address] 07/16/2024 1:30 PM EST Office Visit Gynecology/Obstetrics Sondra [place] [address] [place] [address] Yomaira Keenan CRNP [address] [place] [address] Prakash, Non Stress Tests [facility] [address] [place] [address] 07/23/2024 1:30 PM EDT Office Visit Gynecology/Obstetrics Sondra Randall [address] [place] [address] Yomaira Keenan CRNP [address] [place] [address] Randall, Non Stress Tests [facility] [address] [place] [address] 07/24/2024 11:00 AM EDT Imaging Maternal Medicine Imaging, Yamileth Randall [address] [place] [phone] 07/30/2024 1:30 PM EDT Office Visit Gynecology/Obstetrics Sondra Randall [address] [place] [address] Yomaira Keenan CRNP [address] [place] [address] Prakash Non Stress Tests Yamileth [address] [place] [address] 08/06/2024 1:30 PM EDT Office Visit Gynecology/Obstetrics Sondra Randall [address] [place] [address] Yomaira Keenan CRNP [address] [place] [address] Prakash, Non Stress Tests Yamileth [address] [place] [address] 08/13/2024 1:30 PM EDT Office Visit Gynecology/Obstetrics Sondra Randall [address] [place] [address] Yomaira Keenan CRNP [address] [place] [address] Prakash, Non Stress Tests Yamileth [address] [place] [address] 09/11/2024 12:00 PM EDT Office Visit [facility], [address] [place] [address] Jerrod Abraham PA-C [address] [place] [address] Health Maintenance Due Date Last Done Comments [...] (BMI) of 45.0 to 49.9 in adult ([facility]) Chronic hypertension affecting 19 weeks gestation of [...] Primary Anemia, antepartum documented in this encounter Administered Medications Inactive [...] documented as of this encounter Care Teams Railroad Operator Relationship Specialty Start Date End Date Jerrod Abraham PA-C [address] [facility] [place] [phone] PCP - General Physician Dry Chain Worker 01/28/24 documented as of this encounter
--- OUTSIDE RECORDS SUMMARY | 2024-08-13 14:47 | External Medical Summary ---
Author Name Unknown Address Unknown Organization [facility] - [address] [place] [id number] Laboratory Report Ordering Provider Test Date Status JUAN QUINTANILLA 06/25/2024 09:25:00 Final Observation Date Value Abnormality Reference (Units ) Status Color of Urine by Auto 06/25/2024 09:25:00 Yellow Light Yellow, Yellow Final Clarity, Urine 06/25/2024 09:25:00 Clear Clear Final Glucose [Mass/volume] in Urine by Automated test strip 06/25/2024 09:25:00 Negative Negative (mg/dL) Final Bilirubin.total [Presence] in Urine by Automated test strip 06/25/2024 09:25:00 Negative Negative Final Ketones [Mass/volume] in Urine by Automated test strip 06/25/2024 09:25:00 Negative Negative (mg/dL) Final Specific gravity, Urine 06/25/2024 09:25:00 1.025 1.003-1.030 Final Hemoglobin [Presence] in Urine by Automated test strip 06/25/2024 09:25:00 Negative Negative Final pH, Urine 06/25/2024 09:25:00 6.5 5.0, 5.5, 6.0, 6.5, 7.0, 7.5 (units) Final Protein [Mass/volume] in Urine by Automated test strip 06/25/2024 09:25:00 Negative Negative (mg/dL) Final Urobilinogen, Urine 06/25/2024 09:25:00 0.2 0.2, 1.0 (mg/dL) Final Nitrite [Presence] in Urine by Automated test strip 06/25/2024 09:25:00 Negative Negative Final Leukocyte esterase [Presence] in Urine by Automated test strip 06/25/2024 09:25:00 Trace Abnormal Negative Final Performing Location [facility] 0 - [address] [place] [id number]
--- OUTSIDE RECORDS SUMMARY | 2024-08-13 14:47 | External Medical Summary ---
Author Name Unknown Address Unknown Organization [facility] - [address] [place] [id number] Laboratory Report Ordering Provider Test Date Status LUISBACKER 07/09/2024 13:01:00 Final Observation Date Value Abnormality Reference (Units ) Status Color of Urine by Auto 07/09/2024 13:01:00 Yellow Light Yellow, Yellow Final Clarity, Urine 07/09/2024 13:01:00 Clear Clear Final Glucose [Mass/volume] in Urine by Automated test strip 07/09/2024 13:01:00 Negative Negative (mg/dL) Final Bilirubin.total [Presence] in Urine by Automated test strip 07/09/2024 13:01:00 Negative Negative Final Ketones [Mass/volume] in Urine by Automated test strip 07/09/2024 13:01:00 Negative Negative (mg/dL) Final Specific gravity, Urine 07/09/2024 13:01:00 1.015 1.003-1.030 Final Hemoglobin [Presence] in Urine by Automated test strip 07/09/2024 13:01:00 Negative Negative Final pH, Urine 07/09/2024 13:01:00 7.0 5.0, 5.5, 6.0, 6.5, 7.0, 7.5 (units) Final Protein [Mass/volume] in Urine by Automated test strip 07/09/2024 13:01:00 Negative Negative (mg/dL) Final Urobilinogen, Urine 07/09/2024 13:01:00 0.2 0.2, 1.0 (mg/dL) Final Nitrite [Presence] in Urine by Automated test strip 07/09/2024 13:01:00 Negative Negative Final Leukocyte esterase [Presence] in Urine by Automated test strip 07/09/2024 13:01:00 Negative Negative Final Performing Location [facility] [place] 0 - [address] [place] [id number]
--- OUTSIDE RECORDS SUMMARY | 2024-08-13 14:47 | External Medical Summary | Summary of Care ---
Author Name Unknown Organization [facility] Address [address] [facility] [address] Phone [phone] Care Team Providers Care Pediatric Dermatologist Name Role Phone Jerrod Abraham PA-C Primary Care Provide r Reason for Visit * Reason Comments Return Visit Non Stress Test Encounter Details Date Type Department Care Team (Late st Contact Info) Description 06/25/2024 9:15 AM EST Office Visit Gynecology/Obstetric s [facility] [address] [place] [address] Yomaira Keenan CRNP [address] [place] [address] [place], Non Stress Tests [facility] [address] [place] [address] Supervision of high risk in third trimester*; Obesity affecting , antepartum, unspecified trimester; Chronic hypertension affecting ; Antepartum anemia complicating Allergies No known active allergiesdocumented as of this encounter (statuses as of 06/25/2024) Medications 28-0.8 MG Oral Tablet Take by [...] as of this encounter (statuses as of 06/25/2024) Active Problems Problem Noted Date Diagnosed Date [...] assessment of proteinuria (24-hour urine protein or zmleito-oa-xmrzvaqbsd ratio) and CBC, serum AST/ALT/creatinine. If patient [...] preeclamptic labs with CBC, serum AST/ALT/creatinine and eeokdmd-vs-mownyqhaxn ratio or 24-hour urine protein JONAH if not already done. Recommend anesthesia consult during the antepartum period. Estimated Date of Delivery Comme nts Yes 08/19/2024 Based on last me nstrual period of 11/13/2023 (Exact Date) documented as of this encounter (statuses as of 06/25/2024) Resolved Problems Problem Noted Date Diagnosed Date [...] as of this encounter (statuses as of 06/25/2024) Immunizations Name Administration Dates Next Due COVID-19 mRNA, LNP-s, No Pre serve, 2-Dose Series ([employer]) 04/01/2021,05/21/2020,05/03/2020 DTaP Dipth/Tet/Acell Pertussis (Infanrix), Peds [...] money to get more. Never true 04/01/2024 Kyle Depression Scale Answer Date Recorded [place] Depression Scale Total 2 01/21/2024 The thought [...] No 04/01/2024 Does the household have a [facility] source of income? 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 Baby is active. BP good at home. ASSESSMENT assessment with Non-stress Test completed on 06/25/2024 at 32.1weeks gestation for indication of chronic hypertension heart baseline: 150 bpm Variability: Moderate Decelerations: absent Accelerations: present Contractions: None NST start time: 1022 NST stop time: 1057 NST strip reviewed, interpreted, and approved by OB providerYomaira CRNP . NST strip stored in clinic storage file * Laura Sommers CMA - 06/25/2024 9:21 AM EST 32w1d Denies any concerns documented in this encounter Plan of Treatment Upcoming Encounters Date Type Department Care Team (Late st Contact Info) Description 06/25/2024 2:30 PM EST Pharmacy Pharmacy, [place] [address] [place] [address] Clinic, [address] [address] Antepartum anemia complicating * 06/26/2024 8:00 AM EST Imaging [facility] Medicine Imaging, [facility] [address] [place] [address] 07/02/2024 1:30 PM EST Office Visit Gynecology/Obstetric s [facility] [address] [place] [address] Yomaira Keenan CRNP [address] [place] [address] [place], Non Stress Tests [facility] [address] [place] [address] 07/09/2024 1:00 PM EST Office Visit Gynecology/[facility] [address] [place] [address] Amanda Howard CRNP [address] [place] [address] Prakash, Non Stress Tests [facility] [address] [place] [address] 07/16/2024 1:30 PM EST Office Visit Gynecology/[facility] [address] [place] [address] Yomaira Keenan CRNP [address] [place] [address] Prakash Non Stress Tests [facility] [address] [place] [address] 07/23/2024 1:30 PM EDT Office Visit Gynecology/[facility] s [facility] [address] [place] [address] Yomaira Keenan CRNP [address] [place] [address] Prakash, Non Stress Tests [facility] [address] [place] [address] 07/24/2024 9:30 AM EDT Pharmacy Pharmacy, [place] [address] [place] [address] [facility] [place] [address] [place] [address] 07/24/2024 11:00 AM EDT Imaging Maternal Medicine Imaging, [facility] [address] [place] [address] 07/30/2024 1:30 PM EDT Office Visit Gynecology/Obstetric s [facility] [address] [place] [address] Yomaira Keenan CRNP [address] [place] [address] Prakash, Non Stress Tests [facility] [address] [place] [address] 08/06/2024 1:30 PM EDT Office Visit Gynecology/Obstetric [facility] [address] [place] [address] Yomaira Keenan CRNP [address] [place] [address] Prakash Non Stress Tests [facility] [address] [place] [address] 08/13/2024 1:30 PM EDT Office Visit Gynecology/Obstetric s [facility] [address] [place] [address] Yomaira Keenan CRNP [address] [place] [address] Prakash, Non Stress Tests [facility] [address] [place] [address] 09/11/2024 12:00 PM EDT Office Visit Family Practice [address], [place] [address] [place] [address] Jerrod Abraham PA-C [address] [place] [address] Health Maintenance Due Date Last Done Comments [...] Years) Aged Out 12/19/2002 No longer eligib jojo based on patient's age to complete [...] Comments URINALYSIS OBSTETRICS, POINT OF CARE JONAH 06/25/2024 9:25 AM EST documented in this encounter Results * (ABNORMAL) URINALYSIS OBSTETRICS, POINT OF CARE (06/25/2024 9:25 AM EST) Color, Urine Yellow Light Yellow, Yellow 06/25/2024 9:27 AM EST [facility] 57-10 Clarity, Urine Clear Clear 06/25/2024 9:27 AM EST [facility] [place] 57[facility]10 Glucose, Urine Negative Negative mg/dL 06/25/2024 9:27 AM EST [facility] [place] 57-10 Bilirubin, Urine Negative Negative 06/25/2024 9:27 AM EST [facility] [place] 57[facility]10 Ketone, Urine Negative Negative mg/dL 06/25/2024 9:27 AM EST [facility] [place] [facility]10 Specific [place], Urine 1.025 1.003 - 1.030 06/25/2024 9:27 AM EST [facility] [place] [facility]10 Blood, Urine Negative Negative 06/25/2024 9:27 AM EST [facility] [place] [facility]10 pH, Urine 6.5 5.0, 5.5, 6.0, 6.5, 7.0, 7.5 units 06/25/2024 9:27 AM EST [facility] [place] 57[facility]10 Protein, Urine Negative Negative mg/dL 06/25/2024 9:27 AM EST [facility] [place] 57[facility]10 Urobilinogen, Urine 0.2 0.2, 1.0 mg/dL 06/25/2024 9:27 AM EST [facility] [place] [facility]10 Nitrite, Urine Negative Negative 06/25/2024 9:27 AM EST [facility] [place] 57[facility]10 Esterase, Urine Trace(A) Negative 06/25/2024 9:27 AM EST [facility] [place] [facility]10 Urine 06/25/2024 9:25 AM EST 06/25/2024 9:27 AM EST Yomaira JIMENEZ LAB POINT OF CARE TE ST DOCKED DEVICE UNSOLICITED RESULTS Final Result [facility] [place] [facility] [place] [address] documented in this encounter Visit Diagnoses Diagnosis [...] ultrasonics 28 weeks gestation of state, incidental Supervision of high risk in third trimester- Primary Unspecified high-risk Obesity affecting , antepartum, unspecified trimester Chronic hypertension affecting Antepartum anemia complicating Anemia, antepartum Antepartum anemia complicating - Primary Anemia, antepartum documented in this encounter Additional Health Concerns Active Problems Noted Date Diagnosed Date OB Reminders 01/21/2024 documented as of this encounter Care Teams Pediatric Dermatologist Relationship Specialty Start Date End Date Jerrod Abraham PA-C [address] [facility] [place] [address] PCP - General Physician Hairspring Vibrator 01/28/24 documented as of this encounter
--- OUTSIDE RECORDS SUMMARY | 2024-08-13 14:47 | External Medical Summary | Summary of Care ---
Author Name Unknown Organization [facility] Address [address] [facility] [address] Phone [phone] Care Team Providers Care Peer Health Promoter Name Role Phone Jerrod Abraham PA-C Primary Care Provide r Reason for Visit * Reason Comments Non Stress Test Encounter Details Date Type Department Care Team (Late st Contact Info) Description 07/16/2024 1:30 PM EST Office Visit Gynecology/[facility] [address] [place] [address] Yomaira Keenan CRNP [address] [place] [address] [place], Non Stress Tests [facility] [address] [place] [address] Supervision of high risk in third trimester*; Obesity affecting , antepartum, unspecified trimester; Chronic hypertension affecting ; Antepartum anemia complicating Allergies No known active allergiesdocumented as of this encounter (statuses as of 07/16/2024) Medications 28-0.8 MG Oral Tablet Take by [...] as of this encounter (statuses as of 07/16/2024) Active Problems Problem Noted Date Diagnosed Date [...] assessment of proteinuria (24-hour urine protein or qphwtdl-jv-cefftuuqtr ratio) and CBC, serum AST/ALT/creatinine. If patient [...] preeclamptic labs with CBC, serum AST/ALT/creatinine and jjcjuah-re-hmgeidihtq ratio or 24-hour urine protein JONAH if not already done. Recommend anesthesia consult during the antepartum period. Estimated Date of Delivery Comme nts Yes 08/19/2024 Based on last me nstrual period of 11/13/2023 (Exact Date) documented as of this encounter (statuses as of 07/16/2024) Resolved Problems Problem Noted Date Diagnosed Date [...] as of this encounter (statuses as of 07/16/2024) Immunizations Name Administration Dates Next Due COVID-19 mRNA, LNP-s, No Pre serve, 2-Dose Series ([employer]) 04/01/2021,05/21/2020,05/03/2020 DTaP Dipth/Tet/Acell Pertussis (Infanrix), Peds 10/19/2004,07/23/2000,1999,04/27 [...] money to get more. 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 Not on file documented as of this encounter Last Filed Vital Signs Vital Sign Reading Time Taken Comments Blood Pressure 114/66 07/16/2024 1:41 PM EST Pulse - - Temperature - - Respiratory Rate - - Oxygen Saturation - - Inhaled Oxygen Concentration - - Weight 124.7 kg (275 lb) 07/16/2024 1:41 PM EST Height 160 cm (5' 3") 07/16/2024 1:41 PM EST Body Mass Index 48.71 07/16/2024 1:41 PM EST documented in this encounter Progress Notes * Yomaira Keenan CRNP - 07/16/2024 2:01 PM EST ASSESSMENT assessment with Non-stress Test completed on 07/16/2024 at 35.1weeks gestation for indication of obesity and chronic hypertension heart baseline: 140 bpm Variability: Moderate Decelerations: absent Accelerations: present Contractions: None NST start time: 1326 NST stop time: 1354 NST strip reviewed, interpreted, and approved by OB provider, BARBARA Wallis . NST strip stored in clinic storage file documented in this encounter Nursing Notes * Rosetta Hancock RN - 07/16/2024 1:41 PM EST Patient here for NST 35w1d No concerns + FM Rosetta Hancock RN documented in this encounter Plan of Treatment Upcoming Encounters Date Type Department Care Team (Late st Contact Info) Description 07/23/2024 1:30 PM EDT Office Visit Gynecology/Obstetrics [facility] [address] [place] [address] Yomaira Keenan CRNP [address] [place] [address] Prakash, Non Stress Tests [facility] [address] [place] [address] 07/24/2024 9:30 AM EDT Pharmacy Pharmacy, [address] [address] 07/24/2024 11:00 AM EDT Imaging Maternal Medicine Imaging, [facility] [address] [place] [address] 07/30/2024 1:30 PM EDT Office Visit Gynecology/Obstetrics [facility] [address] [place] [address] Yomaira Keenan CRNP [address] [place] [address] Prakash Non Stress Tests [facility] [address] [place] [address] 08/06/2024 1:30 PM EDT Office Visit Gynecology/Obstetrics [facility] [address] [place] [address] Yomaira Keenan CRNP [address] [place] [address] Prakash, Non Stress Tests [facility] [address] [place] [address] 08/13/2024 1:30 PM EDT Office Visit Gynecology/Obst[facility]s [facility] [address] [place] [address] Yomaira Keenan CRNP [address] [place] [address] Prakash, Non Stress Tests [facility] [address] [place] [address] 09/11/2024 12:00 PM EDT Office Visit Family Practice [place], [place] [address] [place] [address] Jerrod Abraham PA-C [address] [place] [address] Health Maintenance Due Date Last Done Comments [...] Diagnosis Comments URINALYSIS OBSTETRICS, POINT OF CARE Routine 07/16/2024 1:59 PM EST Obesity affecting , antepartum, unspecified trimester Chronic hypertension affecting documented in this encounter Results * URINALYSIS OBSTETRICS, POINT OF CARE (07/16/2024 1:59 PM EST) Color, Urine Yellow Light Yellow, Yellow 07/16/2024 2:02 PM EST [facility] [place] [facility] Clarity, Urine Clear Clear 07/16/2024 2:02 PM EST [facility] [place] [facility]10 Glucose, Urine Negative Negative mg/dL 07/16/2024 2:02 PM EST [facility] [place] [facility]10 Bilirubin, Urine Negative Negative 07/16/2024 2:02 PM EST [facility] [place] [facility]10 Ketone, Urine Negative Negative mg/dL 07/16/2024 2:02 PM EST [facility] [place] [facility]10 Specific [place], Urine 1.015 1.003 - 1.030 07/16/2024 2:02 PM EST [facility] [place] [facility]10 Blood, Urine Negative Negative 07/16/2024 2:02 PM EST [facility] [place] [facility]10 pH, Urine 6.5 5.0, 5.5, 6.0, 6.5, 7.0, 7.5 units 07/16/2024 2:02 PM EST [facility] [place] [facility]10 Protein, Urine Negative Negative mg/dL 07/16/2024 2:02 PM EST [facility] [place] 57[facility]10 Urobilinogen, Urine 0.2 0.2, 1.0 mg/dL 07/16/2024 2:02 PM EST [facility] [place] 57[facility]10 Nitrite, Urine Negative Negative 07/16/2024 2:02 PM EST [facility] [place] [facility]10 Esterase, Urine Negative Negative 07/16/2024 2:02 PM EST [facility] [place] [facility]10 Urine 07/16/2024 1:59 PM EST 07/16/2024 2:02 PM EST us Yomaira Liam PATELNP LAB POINT OF CARE TE ST DOCKED DEVICE UNSOLICITED RESULTS Final Result [facility]10 [address] [place] [address] documented in this encounter Visit Diagnoses Diagnosis [...] documented as of this encounter Care Teams Peer Health Promoter Relationship Specialty Start Date End Date Jerrod Abraham PA-C [address] [facility] [place] [address] PCP - General Physician Crnp 01/28/24 documented as of this encounter
--- OUTSIDE RECORDS SUMMARY | 2024-08-13 14:47 | External Medical Summary ---
Author Name Unknown Address Unknown Organization [facility] [address] [place] [address] Laboratory Report Ordering Provider Test Date Status JUAN QUINTANILLA 07/16/2024 13:59:00 Final Observation Date Value Abnormality Reference (Units ) Status Color of Urine by Auto 07/16/2024 13:59:00 Yellow Light Yellow, Yellow Final Clarity, Urine 07/16/2024 13:59:00 Clear Clear Final Glucose [Mass/volume] in Urine by Automated test strip 07/16/2024 13:59:00 Negative Negative (mg/dL) Final Bilirubin.total [Presence] in Urine by Automated test strip 07/16/2024 13:59:00 Negative Negative Final Ketones [Mass/volume] in Urine by Automated test strip 07/16/2024 13:59:00 Negative Negative (mg/dL) Final Specific gravity, Urine 07/16/2024 13:59:00 1.015 1.003-1.030 Final Hemoglobin [Presence] in Urine by Automated test strip 07/16/2024 13:59:00 Negative Negative Final pH, Urine 07/16/2024 13:59:00 6.5 5.0, 5.5, 6.0, 6.5, 7.0, 7.5 (units) Final Protein [Mass/volume] in Urine by Automated test strip 07/16/2024 13:59:00 Negative Negative (mg/dL) Final Urobilinogen, Urine 07/16/2024 13:59:00 0.2 0.2, 1.0 (mg/dL) Final Nitrite [Presence] in Urine by Automated test strip 07/16/2024 13:59:00 Negative Negative Final Leukocyte esterase [Presence] in Urine by Automated test strip 07/16/2024 13:59:00 Negative Negative Final Performing Location [facility] [place] [address]
--- OUTSIDE RECORDS SUMMARY | 2024-08-13 14:47 | External Medical Summary | Summary of Care ---
Author Name Unknown Organization [facility] Address [address] [facility] [address] Phone [phone] Care Team Providers Care Amphibious Operations Officer Name Role Phone Jrerod Abraham PA-C Primary Care Provide r Reason for Visit * Reason Comments Return Visit Non Stress Test Encounter Details Date Type Department Care Team (Late st Contact Info) Description 07/09/2024 1:00 PM EST Office Visit Gynecology/Obst[facility] [address] [place] [address] Amanda Howard CRNP [address] [place] [address] Prakash, Non Stress Tests [facility] [address] [place] [address] Supervision of high risk in third trimester*; Obesity affecting , antepartum, unspecified trimester; Chronic hypertension affecting ; Antepartum anemia complicating Allergies No known active allergiesdocumented as of this encounter (statuses as of 07/09/2024) Medications 28-0.8 MG Oral Tablet Take by [...] as of this encounter (statuses as of 07/09/2024) Active Problems Problem Noted Date Diagnosed Date [...] assessment of proteinuria (24-hour urine protein or fnpyzil-zs-ebjfyonnsd ratio) and CBC, serum AST/ALT/creatinine. If patient [...] preeclamptic labs with CBC, serum AST/ALT/creatinine and turqvif-ca-vohexrfpbe ratio or 24-hour urine protein JONAH if not already done. Recommend anesthesia consult during the antepartum period. Estimated Date of Delivery Comme nts Yes 08/19/2024 Based on last me nstrual period of 11/13/2023 (Exact Date) documented as of this encounter (statuses as of 07/09/2024) Resolved Problems Problem Noted Date Diagnosed Date [...] as of this encounter (statuses as of 07/09/2024) Immunizations Name Administration Dates Next Due COVID-19 mRNA, LNP-s, No Pre serve, 2-Dose Series ([employer]) 04/01/2021,05/21/2020,05/03/2020 DTaP Dipth/Tet/Acell Pertussis (Infanrix), Peds 10/19/2004,07/23/2000,1999,04/27 [...] money to get more. 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 No regular ctx or LOF/bleeding. Provided with labor instructions. Followed by MFM for growth. Neg proteinuria. Continue NSTs. BARBARA Shepherd ASSESSMENT assessment with Non-stress Test completed on 07/09/2024 at 34.1 weeks gestation for indicationof obesity and chronic hypertension heart baseline: 140 bpm Variability: Moderate Decelerations: absent Accelerations: present Contractions: None NST start time: 1254 NST stop time: 1316 NST strip reviewed, interpreted, and approved by OB provider, BARBARA Shepherd . NST strip stored in clinic storage file * Macey Donohue LPN - 07/09/2024 1:01 PM EST 34w1d Denies any concerns Labor instructions given documented in this encounter Plan of Treatment Upcoming Encounters Date Type Department Care Team (Late st Contact Info) Description 07/16/2024 1:30 PM EST Office Visit Gynecology/Obstetrics [address] [place] [address] Yomaira Keenan CRNP [address] [place] [address] Prakash Non Stress Tests [facility] [address] [place] [address] 07/23/2024 1:30 PM EDT Office Visit [facility]necology/Obst[facility]s [facility] [address] [place], [place] [address] Yomaira Keenan CRNP [address] [place] [address] Prakash Non Stress Tests [facility] [address] [place] [address] 07/24/2024 9:30 AM EDT Pharmacy Pharmacy, [address] [address] 07/24/2024 11:00 AM EDT Imaging Maternal Medicine Imaging, [facility] [address] [place] [id number] 07/30/2024 1:30 PM EDT Office Visit Gynecology/Obstetrics [facility] [address] [place] [address] Yomaira Keenan CRNP [address] [place] [address] Prakash Non Stress Tests [facility] [address] [place] [address] 08/06/2024 1:30 PM EDT Office Visit Gynecology/Obstetrics [facility] [address] [place] [address] Yomaira Keenan CRNP [address] [place] [address] Prakash, Non Stress Tests [facility] [address] [place] [address] 08/13/2024 1:30 PM EDT Office Visit Gynecology/Obstetrics [facility] [address] [place] [address] Yomaira Keenan CRNP [address] [place] [address] Prakash, Non Stress Tests [facility] [address] [place] [address] 09/11/2024 12:00 PM EDT [facility] [address] [address] Jerrod Abraham PA-C [address] [place] [address] Health Maintenance Due Date Last Done Comments [...] Comments URINALYSIS OBSTETRICS, POINT OF CARE Routine 07/09/2024 1:01 PM EST Chronic hypertension affecting Supervision of high risk in third trimester documented in this encounter Results * URINALYSIS OBSTETRICS, POINT OF CARE (07/09/2024 1:01 PM EST) Color, Urine Yellow Light Yellow, Yellow 07/09/2024 1:05 PM EST [facility] Clarity, Urine Clear Clear 07/09/2024 1:05 PM EST [facility] [place] [facility] Glucose, Urine Negative Negative mg/dL 07/09/2024 1:05 PM EST [facility] [place] [facility]10 Bilirubin, Urine Negative Negative 07/09/2024 1:05 PM EST [facility] [place] [facility]10 Ketone, Urine Negative Negative mg/dL 07/09/2024 1:05 PM EST [facility] [place] [facility]10 Specific [place], Urine 1.015 1.003 - 1.030 07/09/2024 1:05 PM EST [facility] [place] [facility] Blood, Urine Negative Negative 07/09/2024 1:05 PM EST [facility] [place] [facility]10 pH, Urine 7.0 5.0, 5.5, 6.0, 6.5, 7.0, 7.5 units 07/09/2024 1:05 PM EST [facility] [place] [facility]10 Protein, Urine Negative Negative mg/dL 07/09/2024 1:05 PM EST [facility] [place] [facility]10 Urobilinogen, Urine 0.2 0.2, 1.0 mg/dL 07/09/2024 1:05 PM EST [facility] [place] [facility]10 Nitrite, Urine Negative Negative 07/09/2024 1:05 PM EST [facility] [place] [facility]10 Esterase, Urine Negative Negative 07/09/2024 1:05 PM EST [facility] [place] [facility]10 Urine 07/09/2024 1:01 PM EST 07/09/2024 1:05 PM EST Amanda Parra Backer BARBARA LAB POINT O F CARE TEST DOCKED DEVICE UNSOLICITED RESULTS Final Result [facility] [place] [facility]10 [address] [facility] [place] [address] documented in this encounter Visit Diagnoses Diagnosis [...] documented as of this encounter Care Teams Amphibious Operations Officer Relationship Specialty Start Date End Date Jerrod Abraham PA-C [address] [facility] [place] [address] PCP - General Physician Criminal Profiler 01/28/24 documented as of this encounter
--- OUTSIDE RECORDS SUMMARY | 2024-08-13 14:47 | External Medical Summary | Summary of Care ---
Author Name Unknown Organization [facility] Address [address] [place] [address] Phone [phone] Care Team Providers Care Rn Social Services Name Role Phone Jerrod Abraham PA-C Primary Care Provide r Reason for Visit * Reason Comments Status Check Anemia Follow-Up Encounter Details Date Type Department Care Team (Late st Contact Info) Description 06/25/2024 2:30 PM EST Pharmacy Pharmacy, [place] [address] [place] [address] Clinic, Anemia [address] [place] [address] Antepartum anemia complicating * Allergies No known [...] assessment of proteinuria (24-hour urine protein or brruqay-zh-vrspfgtuei ratio) and CBC, serum AST/ALT/creatinine. If patient [...] preeclamptic labs with CBC, serum AST/ALT/creatinine and yqaohwi-ff-nvzmuldifl ratio or 24-hour urine protein JONAH if [...] money to get more. 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 Soheila Edmondson, PharmD, BCPS Clinical Pharmacist [facility] (P: [phone]) 06/25/2024 1:24 PM * Alma Rosa Hebert CPhT - 06/25/2024 10:03 AM EST Patient Phone Numbers Call to patient to schedule labs. Spoke with patient who verbalized understanding. Patient received Infed on 06/20. Labs due on 07/23. GA: [id number] Estimated Date of Delivery: 08/19/24 Pharmacist - please place appropriate lab orders. Thank you, Alma Rosa Hebert CPhT Print Color Matcher II [facility] ([facility]) 06/25/2024,10:04 AM documented in this encounter Plan of Treatment Upcoming Encounters Date Type Department Care Team (Late st Contact Info) Description 06/26/2024 8:00 AM EST Imaging Maternal Medicine Imaging, Yamileth Randall [address] [place] [address] 06/26/2024 8:00 AM EST Office Visit Gradall Operator Obstetrics Maternal Medicine, Yamileth Randall [address] [place] [address] Gloria Higgins, DO [address] [place] [address] 07/02/2024 1:30 PM EST Office Visit Gynecology/Obstetrics Sondra Randall [address] [place] [address] Yomaira Keenan CRNP [address] [place] [address] Prakash Non Stress Tests Yamileth [address] [place] [address] 07/09/2024 1:00 PM EST Office Visit Gynecology/Obstetrics Sondra [place] [address] [place] [address] Amanda Howard CRNP [address] [place] [address] Randall, Non Stress Tests Yamileth [address] [place] [address] 07/16/2024 1:30 PM EST Office Visit Gynecology/Obstetrics Sondra Randall [address] [place] [address] Yomaira Keenan CRNP [address] [place] [address] Prakash, Non Stress Tests Yamileth [address] [place] [address] 07/23/2024 1:30 PM EDT Office Visit Gynecology/Obstetrics Sondra Randall [address] [place] [address] Yomaira Keenan CRNP [address] [place] [address] Prakash Non Stress Tests Yamileth [address] [place] [address] 07/24/2024 9:30 AM EDT Pharmacy Pharmacy, [place] [address] [place] [address] [place] [address] [place] [address] 07/24/2024 11:00 AM EDT Imaging Maternal Medicine Imaging, [place] [phone] 07/30/2024 1:30 PM EDT Office Visit Gynecology/Obstetrics Sondra Randall [address] [place] [address] Yomaira Keenan CRNP [address] [place] [address] Randall, Non Stress Tests [place] [address] 08/06/2024 1:30 PM EDT Office Visit Gynecology/Obstetrics Sondra Randall [address] [place] [address] Yomaira Keenan L, CONTINUOUS IMPROVEMENT INTERN [address] [place] [address] Prakash Non Stress Tests Ymaileth [address] [place] [address] 08/13/2024 1:30 PM EDT Office Visit Gynecology/Obstetrics Sondra Randall [address] [place] [address] Yomaira Keenan L, CONTINUOUS IMPROVEMENT INTERN [address] [place] [address] Prakash Non Stress Tests Yamileth [address] [place] [address] 09/11/2024 12:00 PM EDT Office Visit Replaced By [facility] Julio Cesar Batista [address] [place] [address] Jerrod Abraham PA-C [address] [place] [address] Scheduled Orders Name Type Priority Associated Diagnoses Orde r Schedule CBC WITH WBC DIFFERENTIAL Lab Routine Antepartum anemia complicating Expected: 07/23/2024, Expires: 05/25/2025 IRON SCREEN, INCLUDING TIBC Lab Routine Antepartum anemia complicating Expected: 07/23/2024, Expires: 05/25/2025 FERRITIN Lab Routine Antepartum anemia complicating Expected: 07/23/2024, Expires: 05/25/2025 RETICULOCYTE PANEL Lab Routine Antepartum anemia complicating Expected: 07/23/2024, Expires: 05/25/2025 FOLIC ACID Lab Routine Antepartum anemia complicating Expected: 07/23/2024, Expires: 05/25/2025 VITAMIN B12 Lab Routine Antepartum anemia complicating Expected: 07/23/2024, Expires: 05/25/2025 Health Maintenance Due Date Last Done Comments [...] documented as of this encounter Care Teams Rn Social Services Relationship Specialty Start Date End Date Jerrod Abraham PA-C [address] [facility] [place] [address] PCP - General Physician Correction Lieutenant 01/28/24 documented as of this encounter
--- OUTSIDE RECORDS SUMMARY | 2024-08-13 14:48 | External Medical Summary | Summary of Care ---
Author Name Unknown Organization [facility] [address] [facility] [facility] [address] Phone [phone] Care Team Providers Care Centerless Grinder Tender Name Role Phone Jerrod Abraham PA-C Primary Care Provide r Reason for Visit * Reason Onset Date Comments Medication Management 06/11/2024 InFed Encounter Details Date Type Department Care Team (Late st Contact Info) Description 06/11/2024 Telephone Hematology/Oncology Treatment, [place] [address] [place] [address] Yomaira Keenan CRNP [address] [place] [address] Medication Management (InFed) Allergies No known active allergiesdocumented as of this encounter (statuses as of 06/13/2024) Medications 28-0.8 MG Oral Tablet Take by [...] as of this encounter (statuses as of 06/13/2024) Active Problems Problem Noted Date Diagnosed Date [...] assessment of proteinuria (24-hour urine protein or jchjrss-vp-gljpvedyia ratio) and CBC, serum AST/ALT/creatinine. If patient [...] preeclamptic labs with CBC, serum AST/ALT/creatinine and ajbjbwi-sx-znudygjesu ratio or 24-hour urine protein JONAH if not already done. Recommend anesthesia consult during the antepartum period. Estimated Date of Delivery Comme nts Yes 08/19/2024 Based on last me nstrual period of 11/13/2023 (Exact Date) documented as of this encounter (statuses as of 06/13/2024) Resolved Problems Problem Noted Date Diagnosed Date [...] as of this encounter (statuses as of 06/13/2024) Immunizations Name Administration Dates Next Due COVID-19 mRNA, LNP-s, No Pre serve, 2-Dose Series (Pfizer) 04/01/2021,05/21/2020,05/03/2020 DTaP Dipth/Tet/Acell Pertussis (Infanrix), Peds 10/19/2004,07/23/2000,1999,07/04,1999 [...] money to get more. Never true 04/01/2024 [place] Depression Scale Answer Date Recorded [place] Depression Scale Total 2 01/21/2024 The thought [...] No 04/01/2024 Does the household have a [facility] source of income? 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 Scheduling: please call patient to schedule 3 hour appt "infed" (Yomaira Keenan). Thanks! * Telephone Encounter - Amanda Hugo LPN - 06/11/2024 11:42 AM EST Order received for InFed [facility] plan built and routed [place] p [id number] No prior authorization required Awaiting provider signature before scheduling patient. documented in this encounter Plan of Treatment Upcoming Encounters Date Type Department Care Team (Late st Contact Info) Description 06/25/2024 9:15 AM EST Office Visit Gynecology/Obstetrics Sondra Randall [address] [place] [address] Yomaira Keenan CRNP [address] [place] [address] Prakash Non Stress Tests Yamileth [place] [address] 06/25/2024 10:00 AM EST Pharmacy Pharmacy, [address] [address] 06/26/2024 8:00 AM EST Imaging Maternal Medicine Imaging, Yamileth Randall [address] [place] [address] 07/02/2024 1:30 PM EST Office Visit Gynecology/Obstetrics Sondra Lees [address] [place] [address] Yomaira Keenan CRNP [address] [place] [address] Prakash Non Stress Tests Yamileth [address] [place] [address] 07/09/2024 1:00 PM EST Office Visit Gynecology/Obstetrics Sondra Lees [address] [place] [address] Amanda Howard CRNP [address] [place] [address] Prakash Non Stress Tests Yamileth [address] [place] [address] 07/16/2024 1:30 PM EST Office Visit Gynecology/Obstetrics Sondra Randall [address] [place] [address] Yomaira Keenan CRNP [address] [place] [address] Randall, Non Stress Tests Yamileth [address] [place] [address] 07/23/2024 1:30 PM EDT Office Visit Gynecology/Obstetrics Sondra Randall [address] [place] [address] Yomaira Keenan CRNP [address] [place] [address] Randall, Non Stress Tests Yamileth [address] [place] [address] 07/24/2024 11:00 AM EDT Imaging Maternal Medicine Imaging, Yamileth Randall [address] [place] [phone] 07/30/2024 1:30 PM EDT Office Visit Gynecology/Obstetrics Sondra Randall [address] [place] [address] Yomaira Keenan CRNP [address] [place] [address] Randall, Non Stress Tests Yamileth [address] [place] [address] 08/06/2024 1:30 PM EDT Office Visit Gynecology/Obstetrics Sondra Randall [address] [place] [address] Yomaira Keenan CRNP [address] [place] [address] Prakash, Non Stress Tests Yamileth [address] [place] [address] 08/13/2024 1:30 PM EDT Office Visit Gynecology/Obstetrics Sondra Randall [address] [place] [address] Yomaira Keenan CRNP [address] [place] [address] Randall, Non Stress Tests Yamileth [address] [place] [address] 09/11/2024 12:00 PM EDT [facility] [place] [facility] [address] [place] [address] Jerrod Abraham PA-C [address] [place] [address] Health Maintenance Due Date Last Done Comments [...] Author Reminders Care Plan OB Reminders No Katina, Provider documented as of this encounter Medical Devices Not on filedocumented as of this encounter Additional Health Concerns Active Problems Noted Date Diagnosed Date OB Reminders 01/21/2024 documented as of this encounter Care Teams Centerless Grinder Tender Relationship Specialty Start Date End Date Jerrod Abraham PA-C [address] [facility] [place] [address] PCP - General Physician Cnc Maintenance Technician 01/28/24 documented as of this encounter
--- OUTSIDE RECORDS SUMMARY | 2024-08-13 14:48 | External Medical Summary | Summary of Care ---
Author Name Unknown Organization [facility] Address [address] [place] [place] [place] [address] Phone [phone] Care Team Providers Care Inside Horticultural Specialty Grower Name Role Phone Jerrod Abraham PA-C Primary Care Provide r Reason for Referral * Evaluate & Treat - Unlimited Visits (Within 10 days (routine)) - Authorized Specialty Diagnoses / Procedures Referred By Araceli t Referred To Contact Pharmacist / Pharmacy Diagnoses CALLY (iron deficiency anemia) Yomaira Keenan CRNP [address] [place] [address] Phone: tel: fax: Referral ID Status Reason Start Date Expiration Date Visits Requested Visits Authorized [id number] Authorized Specialty Services Required 05/30/2024 11/26/2024 99 99 Question Answer Referral Priority Within 10 days (routine) [facility] Referring Provider Role: Specialist Specialty: torch straightener Reason for Referral: Anemia Comments Pharmacist Medication Therapy Management: Iron deficiency anemia Akhil Hogan RN Reason for Visit * Reason Onset Date Comments Blood Management Program 05/30/2024 Encounter Details Date Type Department Care Team (Late st Contact Info) Description 05/30/2024 Telephone Patient Blood Management, [place] [address] [place] [address] Yomaira Keenan CRNP [address] [place] [address] Blood Management Program Allergies No known active allergiesdocumented as of this encounter (statuses as of 06/19/2024) Medications 28-0.8 MG Oral Tablet Take by [...] as of this encounter (statuses as of 06/19/2024) Active Problems Problem Noted Date Diagnosed Date [...] assessment of proteinuria (24-hour urine protein or rlftjuy-bg-wfpxosvfrd ratio) and CBC, serum AST/ALT/creatinine. If patient [...] Results Component Value Date/Time HEMOGLOBIN A1C - [employer]ER 5.2 06/05/2023 09:00 AM Assessment & Plan [...] preeclamptic labs with CBC, serum AST/ALT/creatinine and nhvzzne-kn-dicaiopeai ratio or 24-hour urine protein JONAH if not already done. Recommend anesthesia consult during the antepartum period. Estimated Date of Delivery Comme nts Yes 08/19/2024 Based on last me nstrual period of 11/13/2023 (Exact Date) documented as of this encounter (statuses as of 06/19/2024) Resolved Problems Problem Noted Date Diagnosed Date [...] as of this encounter (statuses as of 06/19/2024) Immunizations Name Administration Dates Next Due COVID-19 mRNA, LNP-s, No Pre serve, 2-Dose Series (Retsly) 04/01/2021,05/21/2020,05/03/2020 DTaP Dipth/Tet/Acell Pertussis (Infanrix), Peds 10/19/2004,07/23/2000,1999,04/27 [...] money to get more. 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 Patient is agreeable to infusion at [facility]. documented in this encounter Plan of Treatment Upcoming Encounters Date Type Department Care Team (Late st Contact Info) Description 06/20/2024 11:45 AM EST Hem/Onc Treatment Hematology/Oncology Treatment, [address] [phone] Magalys, Chair [address] Hem On[address] [address] 06/25/2024 9:15 AM EST Office Visit Gynecology/Obstetrics Sondra Randall [address] [facility] [place] [address] Yomaira Keenan CRNP [address] [place] [address] Mai Randall Stress Tests Yamileth [address] [facility] [place] [address] 06/25/2024 10:00 AM EST Pharmacy Pharmacy, [place] [address] [place] [address] Clinic, Anemia [address] [place] [address] 06/26/2024 8:00 AM EST Imaging Maternal Medicine Imaging, Yamileth Randall [address] [place] [address] 07/02/2024 1:30 PM EST Office Visit Gynecology/Obstetrics [place] [place] [address] [place] [address] Yomaira Keenan CRNP [address] [place] [address] Prakash Non Stress Tests Yamileth [address] [place] [address] 07/09/2024 1:00 PM EST Office Visit Gynecology/Obstetrics Sondra Lees [address] [place] [address] Amanda Howard CRNP [address] [place] [address] Prakash Non Stress Tests Yamileth [address] [place] [address] 07/16/2024 1:30 PM EST Office Visit Gynecology/Obstetrics Sondra Lees [address] [place] [address] Yomaira Keenan CRNP [address] [place] [address] Prakash Non Stress Tests Yamileth [address] [place] [address] 07/23/2024 1:30 PM EDT Office Visit Gynecology/Obstetrics Sondra Randall [address] [place] [address] Yomaira Keenan CRNP [address] [place] [address] Prakash Non Stress Tests Yam[place]th [address] [place] [address] 07/24/2024 11:00 AM EDT Imaging Maternal Medicine Imaging, Yamileth Randall [address] [place], [place] [address] 07/30/2024 1:30 PM EDT Office Visit Gynecology/Obstetrics Sondra Randall [address] [place] [address] Yomaira Keenan CRNP [address] [place] [address] Randall, Non Stress Tests Yamileth [address] [place] [address] 08/06/2024 1:30 PM EDT Office Visit Gynecology/Obstetrics Sondra Randall [address] [place] [address] Yomaira Keenan CRNP [address] [place] [address] Randall, Non Stress Tests Yamileth [address] [place] [address] 08/13/2024 1:30 PM EDT Office Visit Gynecology/Obstetrics Sondra Randall [address] [place] [address] Yomaira Keenan CRNP [address] [place] [address] Randall, Non Stress Tests Yamileth [address] [place] [address] 09/11/2024 12:00 PM EDT Office Visit Family Practice [place] Julio Cesar Batista [address] [place] [address] Jerrod Abraham PA-C [address] [place] [address] Scheduled Referrals Name Type Priority Associated Diagnoses Orde r Schedule PHARMACIST MEDS THERAPY MGMT REFERRAL OP Referral Within 10 days (routine) CALLY (iron deficiency anemia) Ordered: 05/30/2024 Health Maintenance Due Date Last Done Comments [...] ultrasonics 28 weeks gestation of state, incidental CALLY (iron deficiency anemia)- Primary Iron deficiency anemia, unspecified documented in this encounter Additional Health Concerns Active Problems Noted Date Diagnosed Date OB Reminders 01/21/2024 documented as of this encounter Care Teams Inside Horticultural Specialty Grower Relationship Specialty Start Date End Date Jerrod Abraham PA-C [address] [facility] [place] [address] PCP - General Physician Economic Geographer 01/28/24 documented as of this encounter
--- OUTSIDE RECORDS SUMMARY | 2024-08-13 14:48 | External Medical Summary | Summary of Care ---
Author Name Unknown Organization [facility] Address [address] [facility] [place] [address] Phone [phone] Care Team Providers Care Feed Manager Name Role Phone Jerrod Abraham PA-C Primary Care Provide r Encounter Details Date Type Department Care Team (Late st Contact Info) Description 06/05/2024 Population Health External Data Unspecified Department Allergies No known active allergiesdocumented as of this encounter (statuses as of 06/05/2024) Medications 28-0.8 MG Oral Tablet Take by [...] as of this encounter (statuses as of 06/05/2024) Active Problems Problem Noted Date Diagnosed Date [...] assessment of proteinuria (24-hour urine protein or zhazbti-pa-vpeneswexp ratio) and CBC, serum AST/ALT/creatinine. If patient [...] preeclamptic labs with CBC, serum AST/ALT/creatinine and kcvgetv-dn-trtdxtxrkf ratio or 24-hour urine protein JONAH if not already done. Recommend anesthesia consult during the antepartum period. Estimated Date of Delivery Comme nts Yes 08/19/2024 Based on last me nstrual period of 11/13/2023 (Exact Date) documented as of this encounter (statuses as of 06/05/2024) Resolved Problems Problem Noted Date Diagnosed Date [...] as of this encounter (statuses as of 06/05/2024) Immunizations Name Administration Dates Next Due COVID-19 [...] money to get more. 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 [address] [place] [address] 06/26/2024 8:00 AM EST Imaging Maternal Medicine Imaging, Yamileth Randall [address] [place] [address] 07/24/2024 11:00 AM EDT Imaging Maternal Medicine Imaging, Yamileth Randall [address] [place] [address] 09/11/2024 12:00 PM EDT Office Visit Family Practice [address], [address] [place] [address] Jerrod Abraham PA-C [address] [place] [address] Health Maintenance Due Date Last Done Comments [...] documented as of this encounter Care Teams Feed Manager Relationship Specialty Start Date End Date Jerrod Abraham PA-C [address] [place] [address] PCP - General Physician Replenishment Merchandising Associate 01/28/24 documented as of this encounter
--- OUTSIDE RECORDS SUMMARY | 2024-08-13 14:48 | External Medical Summary | Summary of Care ---
Author Name Unknown Organization [facility] Address [address] [place] [address] Phone [phone] Care Team Providers Care School Janitor Name Role Phone Jerrod Abraham PA-C Primary Care Provide r Reason for Visit * Reason Comments Blood Management Program Encounter Details Date Type Department Care Team (Late st Contact Info) Description 05/30/2024 Documentation Patient Blood Management, [place] [address] [place] [address] Akhil Hogan RN Allergies No known active allergiesdocumented as of this encounter (statuses as of 05/30/2024) Medications 28-0.8 MG Oral Tablet Take by [...] as of this encounter (statuses as of 05/30/2024) Active Problems Problem Noted Date Diagnosed Date [...] assessment of proteinuria (24-hour urine protein or nmcslnp-gb-ictavaofqs ratio) and CBC, serum AST/ALT/creatinine. If patient [...] preeclamptic labs with CBC, serum AST/ALT/creatinine and ppphxqj-pd-owbucgxzqs ratio or 24-hour urine protein JONAH if not already done. Recommend anesthesia consult during the antepartum period. Estimated Date of Delivery Comme nts Yes 08/19/2024 Based on last me nstrual period of 11/13/2023 (Exact Date) documented as of this encounter (statuses as of 05/30/2024) Resolved Problems Problem Noted Date Diagnosed Date [...] as of this encounter (statuses as of 05/30/2024) Immunizations Name Administration Dates Next Due COVID-19 [...] money to get more. 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 Not on file documented as of this encounter Progress Notes * Akhil Hogan RN - 05/30/2024 11:26 AM EST REFERRAL - Patient Blood Management Name: Kaitlynn Moreau REQUESTING SERVICE: [facility] REASON FOR REFERRAL: new evaluation outpatient, anemia in [facility]OD[facility]: 08/19/24 Anemia Evaluation: Latest Reference Range & Units 05/29/24 09:56 HGB 12.0 - 15.3 g/dL 10.5 (L) HCT 36.0 - 45.2 % 32.1 (L) Iron 33 - 151 ug/dL 69 Iron Binding Capacity 250 - 425 ug/dL 353 Transferrin Saturation Percent 15 - 55 % 20 Ferritin 13 - 150 ng/mL 37 Vitamin B12 232 - 1,245 pg/mL 575 Folic Acid >4.5 ng/mL 19.6 Immature Reticuloctye Fraction 2.5 - 20.6 % 14.3 Reticulocyte Hemoglobin 29.7 - 37.4 pg 32.9 (L): Data is abnormally low Current Patient Medications: Medications that may impair hemostasis: bASA Medications that may impair iron absorption: none Patient Refused Blood Transfusion? (e.g. Hoahaoism): no Possible Contributing Factors: iron deficiency Treatment Recommendations: IV iron per OB MTM guidelines. Spoke with Kaitlynn. Agreeable to infusion at [facility]. Risks and benefits of IV iron, including risk of adverse drug reaction discussed with patient. Patient voiced understanding. Thank you for allowing Blood Management to participate in the care of this patient. documented in this encounter Plan of Treatment Upcoming Encounters Date Type Department Care Team (Late st Contact Info) Description 06/09/2024 8:15 AM EST Office Visit Gynecology/Obstetrics Sondra Lees [address] [place] [address] Yomaira Keenan CRNP [address] [place] [address] 06/26/2024 8:00 AM EST Imaging Maternal Medicine Imaging, Yamileth Lees [address] [place] [address] 07/24/2024 11:00 AM EDT Imaging Maternal Medicine Imaging, Yamileth Lees [address] [place] [address] 09/11/2024 12:00 PM EDT Office Visit Family Practice [address] [place] [address] Jerrod Abraham PA-C [address] [place] [address] Health Maintenance Due Date Last Done Comments [...] documented as of this encounter Care Teams School Janitor Relationship Specialty Start Date End Date Jerrod Abraham PA-C [address] [facility] [place] [address] PCP - General Physician Rehab Assistant 01/28/24 documented as of this encounter
--- OUTSIDE RECORDS SUMMARY | 2024-08-13 14:48 | External Medical Summary | Summary of Care ---
Author Name Unknown Organization [facility] Address [address] [facility] [place] [address] Phone [phone] Care Team Providers Care Conference Center Coordinator Name Role Phone Jerrod Abraham PA-C Primary Care Provide r Reason for Visit * Reason Onset Date Comments Appointment 06/19/2024 Encounter Details Date Type Department Care Team (Late st Contact Info) Description 06/19/2024 [facility] [address] [place] [address] Yomaira Keenan CRNP [address] [place] [address] Appointment Allergies No known active allergiesdocumented as of [...] assessment of proteinuria (24-hour urine protein or mhnnwou-jv-btybftafeu ratio) and CBC, serum AST/ALT/creatinine. If patient [...] preeclamptic labs with CBC, serum AST/ALT/creatinine and cgjqymr-nt-bllqzpwxps ratio or 24-hour urine protein JONAH if [...] money to get more. 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 documented in this encounter Plan of Treatment Upcoming Encounters Date Type Department Care Team (Late st Contact Info) Description 06/20/2024 11:45 AM EST Hem/Onc Treatment Hematology/Oncology Treatment[place] [address] [place] [phone] Magalys, Chair 2 Hem Onc Scen[place] [address] [place] [address] 06/25/2024 9:15 AM EST Office Visit Gynecology/Obstetrics Sondra Randall [address] [place] [address] Yomaira Keenan CRNP [address] [place] [address] Prakash Non Stress Tests Yamileth [address] [place] [address] 06/25/2024 10:00 AM EST Pharmacy Pharmacy, [place] [address] [place] [address] Clinic, [place] [address] [place] [address] 06/26/2024 8:00 AM EST Imaging Maternal Medicine Imaging, Yamileth Randall [address] [place] [address] 07/02/2024 1:30 PM EST Office Visit Gynecology/Obstetrics Sondra Randall [address] [place] [address] Yomaira Keenan CRNP [address] [place] [address] Prakash, Non Stress Tests Yamileth [address] [place] [address] 07/09/2024 1:00 PM EST Office Visit Gynecology/Obstetrics Sondra Randall [address] [place] [address] Amanda Howard CRNP [address] [place], [place] [address] Randall, Non Stress Tests Yamileth [place] [address] 07/16/2024 1:30 PM EST Office Visit Gynecology/Obstetrics Sondra Randall [address] [place] [address] Yomaira Keenan CRNP [address] [place] [address] Prakash Non Stress Tests Yam[place] [address] 07/23/2024 1:30 PM EDT Office Visit Gynecology/Obstetrics Sondra Randall [address] [place] [address] Yomaira Keenan CRNP [address] [place] [address] Prakash, Non Stress Tests Yam[place] [address] 07/24/2024 11:00 AM EDT Imaging Maternal Medicine Imaging, [place] [address] 07/30/2024 1:30 PM EDT Office Visit Gynecology/Obstetrics Sondra Randall [address] [place] [address] Yomaira Keenan CRNP [address] [place] [address] Prakash, Non Stress Tests Yamileth [place] [address] 08/06/2024 1:30 PM EDT Office Visit Gynecology/Obstetrics Sondra Randall [address] [place], [place] [address] Yomaira Keenan CRNP [address] [place], [place] [address] Randall, Non Stress Tests Yamileth [address] [place], [place] [address] 08/13/2024 1:30 PM EDT Office Visit Gynecology/Obstetrics Sondra Randall [address] [place] [address] Yomaira Keenan CRNP [address] [place], [place] [address] Prakash Non Stress Tests Yamileth [address] [place] [address] 09/11/2024 12:00 PM EDT Office Visit Family Practice [place] [facility] [address] [place] [address] Jerrod Abraham PA-C [address] [place] [address] Health Maintenance Due Date Last Done Comments [...] Author Reminders Care Plan OB Reminders No Miket, Provider documented as of this encounter Medical Devices Not on filedocumented as of this encounter Additional Health Concerns Active Problems Noted Date Diagnosed Date OB Reminders 01/21/2024 documented as of this encounter Care Teams Conference Center Coordinator Relationship Specialty Start Date End Date Jerrod Abraham PA-C [address] [facility] [place] [address] PCP - General Physician Furnace Mason 01/28/24 documented as of this encounter
--- OUTSIDE RECORDS SUMMARY | 2024-08-13 14:48 | External Medical Summary | Summary of Care ---
Author Name Unknown Organization [facility] Address [address] [place] [address] Phone [phone] Care Team Providers Care Library Information Technician Name Role Phone Jerrod Abraham PA-C Primary Care Provide r Encounter Details Date Type Department Care Team (Late st Contact Info) Description 06/12/2024 Orders Only Pharmacy, [place] [address] [place] [address] [facility] [address] [place] [address] Allergies No known active allergiesdocumented as of this encounter (statuses as of 06/12/2024) Medications 28-0.8 MG Oral Tablet Take by [...] as of this encounter (statuses as of 06/12/2024) Active Problems Problem Noted Date Diagnosed Date [...] assessment of proteinuria (24-hour urine protein or evgvunb-qq-qyvitglbrj ratio) and CBC, serum AST/ALT/creatinine. If patient [...] preeclamptic labs with CBC, serum AST/ALT/creatinine and leavtdo-zj-hqhbmcmsnk ratio or 24-hour urine protein JONAH if not already done. Recommend anesthesia consult during the antepartum period. Estimated Date of Delivery Comme nts Yes 08/19/2024 Based on last in nstrual period of 11/13/2023 (Exact Date) documented as of this encounter (statuses as of 06/12/2024) Resolved Problems Problem Noted Date Diagnosed Date [...] as of this encounter (statuses as of 06/12/2024) Immunizations Name Administration Dates Next Due COVID-19 [...] money to get more. 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 Not on file documented as of this encounter Plan of Treatment Upcoming Encounters Date Type Department Care Team (Late st Contact Info) Description 06/25/2024 9:15 AM EST Office Visit Gynecology/Obstetrics Sondra [place] [address] [place] [address] Yomaira Keenan CRNP [address] [place] [address] Mai Randall Stress Tests Yamileth [address] [place] [address] 06/25/2024 10:00 AM EST Pharmacy Pharmacy, [place] [address] [place] [address] Clinic, [place] [address] [place] [address] 06/26/2024 8:00 AM EST Imaging Maternal Medicine Imaging, Yamileth Randall [address] [place] [address] 07/02/2024 1:30 PM EST Office Visit Gynecology/Obstetrics Sondra Randall [address] [place] [address] Yomaira Keenan CRNP [address] [place] [address] Prakash Non Stress Tests Yamileth [address] [place] [address] 07/09/2024 1:00 PM EST Office Visit Gynecology/Obstetrics Sondra Randall [address] [place] [address] Backer, BARBARA Menjivar [address] [place] [address] Prakash Non Stress Tests Yamileth [address] [place] [address] 07/16/2024 1:30 PM EST Office Visit Gynecology/Obstetrics Sondra Randall [address] [place] [address] Yomaira Keenan CRNP [address] [place] [address] Prakash Non Stress Tests Yamileth [address] [place] [address] 07/23/2024 1:30 PM EDT Office Visit Gynecology/Obstetrics Sondra Randall [address] [place] [address] Yomaira Keenan STEAM PLANT OPERATOR [address] [place] [address] Prakash Non Stress Tests Yamileth [address] [place] [address] 07/24/2024 11:00 AM EDT Imaging Maternal Medicine ImagingYamileth [address] [place] [address] 07/30/2024 1:30 PM EDT Office Visit Gynecology/Obstetrics Sondra Randall [address] [place] [address] Yomaira Keenan CRNP [address] [place] [address] Prakash Non Stress Tests Yamileth [address] [place] [address] 08/06/2024 1:30 PM EDT Office Visit Gynecology/Obstetrics Sondra Randall [address] [place] [address] Yomaira Keenan CRNP [address] [place] [address] Prakash Non Stress Tests Yamileth [address] [place] [address] 08/13/2024 1:30 PM EDT Office Visit Gynecology/Obstetrics Sondra Randall [address] [place] [address] Yomaira Keenan CRNP [address] [place] [address] Prakash Non Stress Tests Yamileth [address] [place] [address] 09/11/2024 12:00 PM EDT Office Visit Family Practice [address] [place], [place] [address] [place] [address] Jerrod Abraham PA-C [address] [place] [address] Health Maintenance Due Date Last Done Comments [...] 19+ Years) Aged Out 12/19/2002 No longer stephanie uribe based on patient's age to complete this [...] documented as of this encounter Care Teams Library Information Technician Relationship Specialty Start Date End Date Jerrod Abraham PA-C [address] [place] [address] PCP - General Physician Quality Assurance Group Leader 01/28/24 documented as of this encounter
--- OUTSIDE RECORDS SUMMARY | 2024-08-13 14:48 | External Medical Summary | Summary of Care ---
Author Name Unknown Organization [facility] Address [address] [facility] [place] [address] Phone [phone] Care Team Providers Care Vibrator Operator Name Role Phone Jerrod Abraham PA-C Primary Care Provide r Reason for Visit * Reason Comments Return Visit Encounter Details Date Type Department Care Team (Late st Contact Info) Description 06/09/2024 8:15 AM EST Office Visit Gynecology/Obstetric s [facility] Le[facility] [address] [place] [address] Yomaira Keenan CRNP [address] [place] [address] Supervision of high risk in third trimester*; Obesity affecting , antepartum, unspecified trimester; Chronic hypertension affecting ; Antepartum anemia complicating Allergies No known active allergiesdocumented as of this encounter (statuses as of 06/09/2024) Medications 28-0.8 MG Oral Tablet Take by [...] as of this encounter (statuses as of 06/09/2024) Active Problems Problem Noted Date Diagnosed Date [...] assessment of proteinuria (24-hour urine protein or bqplden-gx-xtqvrislhv ratio) and CBC, serum AST/ALT/creatinine. If patient [...] preeclamptic labs with CBC, serum AST/ALT/creatinine and mkxxpvd-ok-xtfsdqqnsk ratio or 24-hour urine protein JONAH if not already done. Recommend anesthesia consult during the antepartum period. Estimated Date of Delivery Comme nts Yes 08/19/2024 Based on last me nstrual period of 11/13/2023 (Exact Date) documented as of this encounter (statuses as of 06/09/2024) Resolved Problems Problem Noted Date Diagnosed Date [...] as of this encounter (statuses as of 06/09/2024) Immunizations Name Administration Dates Next Due COVID-19 mRNA, LNP-s, No Pre serve, 2-Dose Series (MYTRND) 04/01/2021,05/21/2020,05/03/2020 DTaP Dipth/Tet/Acell Pertussis (Infanrix), Peds 10/19/2004,07/23/2000,1999,04/27 [...] to get more. 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 Good FM. No contractions, bleeding, or LOF. Following with MFM for chronic HTN. To begin NSTs in 2 weeks. [place] Wallis * Laura Sommers CMA - 06/09/2024 8:10 AM EST 29w6d Denies any concerns documented in this encounter Plan of Treatment Upcoming Encounters Date Type Department Care Team (Late st Contact Info) Description 06/11/2024 4:00 PM EST Pharmacy Pharmacy, [place] [address] [place] [address] Clinic, [place] [address] [place] [address] 06/25/2024 9:15 AM EST Office Visit Gynecology/Obstetrics Sondra Lees [address] [place] [address] Yomaira Keenan CRNP [address] [place] [address] Randall, Non Stress Tests Yamileth [address] [place] [address] 06/26/2024 8:00 AM EST Imaging Maternal Medicine Imaging, Yamileth Prakash [address] [place] [address] 07/02/2024 1:30 PM EST Office Visit Gynecology/Obstetrics Mamad[place] [address] [place] [address] Yomaira Keenan CRNP [address] [place] [address] Randall, Non Stress Tests Yamileth [address] [place] [address] 07/09/2024 1:00 PM EST Office Visit Gynecology/Obstetrics Sondra Lees [address] [place] [address] Backer, Amanda Parra, [place] [address] [place] [address] Randall, Non Stress Tests Yamileth [address] [place] [place] [address] 07/16/2024 1:30 PM EST Office Visit Gynecology/Obstetrics Sondra [place] [address] [place] [address] Yomaira Keenan CRNP [address] [place] [address] Randall, Non Stress Tests Yamileth [address] [place] [place] [address] 07/23/2024 1:30 PM EDT Office Visit Gynecology/Obstetrics Sondra Randall [address] [place] [address] Yomaira Keenan CRNP [address] [place] [address] Randall, Non Stress Tests Yamileth [address] [place] [place] [address] 07/24/2024 11:00 AM EDT Imaging Maternal Medicine Imaging, Yamileth Randall [address] [place] [address] 07/30/2024 1:30 PM EDT Office Visit Gynecology/Obstetrics Sondra Randall [address] [place] [address] Yomaira Keenan CRNP [address] [place] [address] Randall, Non Stress Tests Yamileth [address] [place] [address] 08/06/2024 1:30 PM EDT Office Visit Gynecology/Obstetrics Sondra Lees [address] [place] [address] Yomaira Keenan CRNP [address] [place] [address] Mai Randall Stress Tests Yamileth [address] [place] [address] 08/13/2024 1:30 PM EDT Office Visit Gynecology/Obstetrics Emilefarrukh Prakash [address] [place] [address] Yomaira Keenan CRNP [address] [place] [address] Mai Randall Stress Tests Yamileth [address] [place] [address] 09/11/2024 12:00 PM EDT Office Visit Family Practice [address] [place] [address] Jerrod Abraham PA-C [address] [place] [address] Health Maintenance Due Date Last Done Comments [...] documented as of this encounter Care Teams Vibrator Operator Relationship Specialty Start Date End Date Jerrod Abraham PA-C [address] [facility] [place] [address] PCP - General Physician Regulatory Submissions Associate 01/28/24 documented as of this encounter
--- OUTSIDE RECORDS SUMMARY | 2024-08-13 14:48 | External Medical Summary | Summary of Care ---
Author Name Unknown Organization [facility] Address [address] [facility] [address] Phone [phone] Care Team Providers Care Nuclear Equipment Sales Engineer Name Role Phone Jerrod Abraham PA-C Primary Care Provide r Reason for Visit * Reason Onset Date Comments Medication Management 06/11/2024 InFed Encounter Details Date Type Department Care Team (Late st Contact Info) Description 06/11/2024 Telephone Hematology/Oncology Treatment, [place] [address] [place] [address] Yomaira Keenan CRNP [address] [place] [address] Medication Management (InFed) Allergies No [...] assessment of proteinuria (24-hour urine protein or kzbkyar-mb-sisyrevoqb ratio) and CBC, serum AST/ALT/creatinine. If patient [...] preeclamptic labs with CBC, serum AST/ALT/creatinine and ufecgsm-sy-vnuusexmsh ratio or 24-hour urine protein JONAH if [...] money to get more. Never true 04/01/2024 [place] Depression Scale Answer Date Recorded [place] Depression Scale Total 2 01/21/2024 The thought [...] No 04/01/2024 Does the household have a [facility] source of income? 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 Scheduling: please call patient to schedule 3 hour appt "infed" (Yomaira Keenan). Thanks! * Telephone Encounter - Amanda Hugo LPN - 06/11/2024 11:42 AM EST Order received for InFed [place] p [id number] No prior authorization required Awaiting provider signature before scheduling patient. documented in this encounter Plan of Treatment Upcoming Encounters Date Type Department Care Team (Late st Contact Info) Description 06/20/2024 10:45 AM EST Hem/Onc Treatment Hematology/Oncology Treatment, [place] [address] [place] [phone] Magalys, Chair 2 Hem Onc Scenery [address] [place] [address] 06/25/2024 9:15 AM EST Office Visit Gynecology/Obstetrics [facility] [address] [place] [address] Yomaira Keenan CRNP [address] [place] [address] Mai Randall Stress Tests [facility] [address] [place] [address] 06/25/2024 10:00 AM EST Pharmacy Pharmacy, [place] [address] [place] [address] Clinic, [place] [address] [place] [address] 06/26/2024 8:00 AM EST Imaging Maternal Medicine Imaging, [facility] [place] [address] [place] [phone] 07/02/2024 1:30 PM EST Office Visit Gynecology/Obstetrics [facility] [address] [place] [address] Yomaira Keenan CRNP [address] [place] [address] Randall, Non Stress Tests [facility] [address] [place] [address] 07/09/2024 1:00 PM EST Office Visit Gynecology/Obstetrics Sond[facility] [address] [place] [address] Backer, BARBARA Menjivar [address] [place] [address] Prakash, Non Stress Tests [facility] [address] [place] [address] 07/16/2024 1:30 PM EST Office Visit Gynecology/Obstetrics Sond[facility] [address] [place] [address] Yomaira Keenan CRNP [address] [place] [address] Prakash Non Stress Tests [facility] [address] [place] [address] 07/23/2024 1:30 PM EDT Office Visit Gynecology/Obstetrics Sondra [facility] [address] [place] [address] Yomaira Keenan CRNP [address] [place] [address] Prakash, Non Stress Tests [facility] [address] [place] [address] 07/24/2024 11:00 AM EDT Imaging Maternal Medicine Imaging, [facility] [place] [address] [place] [address] 07/30/2024 1:30 PM EDT Office Visit Gynecology/Obstetrics Sondra Randall [address] [place] [address] Yomaira Keenan CRNP [address] [place] [address] Mai Randall Stress Tests [facility] [address] [place] [address] 08/06/2024 1:30 PM EDT Office Visit Gynecology/Obstetrics Sondra Randall [address] [place], [place] [address] Yomaira Keenan CRNP [address] [place] [address] Mai Randall Stress Tests [facility] [address] [place], [place] [address] 08/13/2024 1:30 PM EDT Office Visit Gynecology/Obstetrics Sondra Randall [address] [place], [place] [address] Yomaira Keenan CRNP [address] [place] [address] Mai Randall Stress Tests [facility] [address] [place] [address] 09/11/2024 12:00 PM EDT Office Visit Family Practice [address] [place] [address] Jerrod Abraham PA-C [address] [place] [address] Health Maintenance Due Date Last Done Comments [...] documented as of this encounter Care Teams Nuclear Equipment Sales Engineer Relationship Specialty Start Date End Date Jerrod Abraham PA-C [address] [facility] [place] [phone] PCP - General Physician Director Payer 01/28/24 documented as of this encounter
--- OUTSIDE RECORDS SUMMARY | 2024-08-13 14:48 | External Medical Summary | Summary of Care ---
Author Name Unknown Organization [facility] Address [address] [facility] [address] Phone [phone] Care Team Providers Care International Trade Teacher Name Role Phone Jerrod Abraham PA-C Primary Care Provide r Reason for Visit * Reason Onset Date Comments Medication Management 06/11/2024 InFed Encounter Details Date Type Department Care Team (Late st Contact Info) Description 06/11/2024 Telephone Hematology/Oncology Treatment, [place] [address] [place] [address] Yomaira Keenan CRNP [address] [place] [address] Medication Management (InFed) Allergies No [...] assessment of proteinuria (24-hour urine protein or pvsjlfo-up-zdvzvmqwzc ratio) and CBC, serum AST/ALT/creatinine. If patient [...] preeclamptic labs with CBC, serum AST/ALT/creatinine and ebonvfk-mm-ptmnxiblgt ratio or 24-hour urine protein JONAH if [...] money to get more. Never true 04/01/2024 [place] Depression Scale Answer Date Recorded [place] Depression Scale Total 2 01/21/2024 The thought [...] No 04/01/2024 Does the household have a [facility] source of income? 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 Scheduling: please call patient to schedule 3 hour appt "infed" (Yomaira Keenan). Thanks! * Telephone Encounter - Amanda Hugo LPN - 06/11/2024 11:42 AM EST Order received for InFed [place] plan [place] to p [phone] No prior authorization required Awaiting provider signature before scheduling patient. documented in this encounter Plan of Treatment Upcoming Encounters Date Type Department Care Team (Late st Contact Info) Description 06/20/2024 10:45 AM EST Hem/Onc Treatment Hematology/Oncology Treatment, [place] [address] [place] [phone] Magalys, Chair 2 Hem Onc Scenery [address] [place] [address] 06/25/2024 9:15 AM EST Office Visit Gynecology/Obstetrics [facility] [address] [place] [address] Yomaira Keenan CRNP [address] [place] [address] Mai Randall Stress Tests [facility] [address] [place] [address] 06/25/2024 10:00 AM EST Pharmacy Pharmacy, [place] [address] [place] [address] Clinic, Anemia [address] [place] [address] 06/26/2024 8:00 AM EST Imaging Maternal Medicine Imaging, [facility] [place] [address] [place] [phone] 07/02/2024 1:30 PM EST Office Visit Gynecology/Obstetrics [facility] [address] [place] [address] Yomaira Keenan CRNP [address] [place] [address] Randall, Non Stress Tests [facility] [address] [place] [address] 07/09/2024 1:00 PM EST Office Visit Gynecology/Obstetrics Sondra Randall [address] [place] [address] Backer, BARBARA Menjivar [address] [place] [address] Prakash, Non Stress Tests [facility] [address] [place] [address] 07/16/2024 1:30 PM EST Office Visit Gynecology/Obstetrics Sond[facility] Randall [address] [place] [address] Yomaira Keenan CRNP [address] [place] [address] Prakash Non Stress Tests [facility] [address] [place] [address] 07/23/2024 1:30 PM EDT Office Visit Gynecology/Obstetrics Sondra [facility] [address] [place] [address] Yomaira Keenan CRNP [address] [place] [address] Prakash, Non Stress Tests [facility] [address] [place] [address] 07/24/2024 11:00 AM EDT Imaging Maternal Medicine Imaging, [facility] Randall [address] [place] [address] 07/30/2024 1:30 PM EDT Office Visit Gynecology/Obstetrics Sondra Randall [address] [place] [address] Yomaira Keenan CRNP [address] [place] [address] Mai Randall Stress Tests [facility] [address] [place] [address] 08/06/2024 1:30 PM EDT Office Visit Gynecology/Obstetrics Sondra Randall [address] [place], [place] [address] Yomaira Keenan CRNP [address] [place] [address] Mai Randall Stress Tests [facility] [address] [place], [place] [address] 08/13/2024 1:30 PM EDT Office Visit Gynecology/Obstetrics Sondra Randall [address] [place], [place] [address] Yomaira Keenan CRNP [address] [place] [address] Mai Randall Stress Tests [facility] [address] [place] [address] 09/11/2024 12:00 PM EDT Office Visit Family Practice [address] [place] [address] Jerrod Abraham PA-C [address] [place] [address] Health Maintenance Due Date Last Done Comments [...] documented as of this encounter Care Teams International Trade Teacher Relationship Specialty Start Date End Date Jerrod Abraham PA-C [address] [facility] [place] [phone] PCP - General Physician Rip/Mould Operator 01/28/24 documented as of this encounter
--- OUTSIDE RECORDS SUMMARY | 2024-08-13 14:49 | External Medical Summary ---
Author Name Unknown Address Unknown Organization K0G:LAB[facility]ATORY [facility] [place] [address] - [address] [place] [address] Laboratory Report Ordering Provider Test Date Status SOCORROJUAN 05/29/2024 09:56:34 Final Observation Date Value Abnormality Reference (Units ) Status Glucose [Moles/volume] in Serum or Plasma --1 hour post 50 g glucose PO 05/29/2024 09:56:34 108 70-129 (mg/dL) Final Performing Location [facility] [place] 57[address] 0 - [address] [place] [address]
--- OUTSIDE RECORDS SUMMARY | 2024-08-13 14:49 | External Medical Summary | Summary of Care ---
Author Name Unknown Organization [facility] Address [address] [place] [address] Phone [phone] Care Team Providers Care Diving Board Assembler Name Role Phone Jerrod Arbaham PA-C Primary Care Provide r Encounter Details Date Type Department Care Team (Late st Contact Info) Description 05/29/2024 8:00 AM EST Office Visit Admitting Office Escort Obstetrics Maternal Medicine, [address] [address] Ronaldo Gloriakulwinder Henderson, DO [address] [place] [address] Obesity affecting , antepartum, unspecified trimester*; Ultrasound for screening for growth restriction; 28 weeks gestation of Allergies No known active allergiesdocumented as of this encounter (statuses as of 05/29/2024) Medications 28-0.8 MG Oral Tablet Take by [...] as of this encounter (statuses as of 05/29/2024) Active Problems Problem Noted Date Diagnosed Date , supervision, high-risk 02/12/2024 Chronic hypertension affecting [...] assessment of proteinuria (24-hour urine protein or edgxqvg-zq-szcpdjrndy ratio) and CBC, serum AST/ALT/creatinine. If patient [...] preeclamptic labs with CBC, serum AST/ALT/creatinine and kxpmcpd-kf-ewoogpgvcd ratio or 24-hour urine protein JONAH if not already done. Recommend anesthesia consult during the antepartum period. Estimated Date of Delivery Comme nts Yes 08/19/2024 Based on last ak nstrual period of 11/13/2023 (Exact Date) documented as of this encounter (statuses as of 05/29/2024) Resolved Problems Problem Noted Date Diagnosed Date [...] as of this encounter (statuses as of 05/29/2024) Immunizations Name Administration Dates Next Due COVID-19 [...] money to get more. 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 Normal growth with EFW 1077 g at 14%ile. Normal GAMALIEL at 16 cm. Cephalic presentation. I reviewed the ultrasound [...] call with any questions. Gloria Higgins DO 05/29/2024 10:03 AM documented in this encounter Miscellaneous Notes * Assessment & Plan Note - Gloria Higgins DO - 05/29/2024 10:03 AM EST Associated Problem(s): Chronic hypertension affecting BP Readings from Last 5 Encounters: 05/20/24 130/82 04/15/24 132/80 03/31/24 137/69 03/18/24 126/74 02/18/24 124/74 Please titrate medication to maintain goal BP < 140/90. documented in this encounter Plan of Treatment Upcoming Encounters Date Type Department Care Team (Late st Contact Info) Description 06/09/2024 8:15 AM EST Office Visit Gynecology/Obstetrics [facility] [place] [address] [place] [address] Yomaira Keenan CRNP [address] [place] [address] 06/26/2024 8:00 AM EST Imaging Maternal Medicine Imaging, [facility] [place] [address] [place] [address] 07/24/2024 11:00 AM EDT Imaging Maternal Medicine ImagingYamileth [address] [place] [address] 09/11/2024 12:00 PM EDT Office Visit Family Practice [address] [place] [address] Jerrod Abraham PA-C [address] [place] [address] Health Maintenance Due Date Last Done Comments Depression Screening 11/27/2020 11/28/2019 COVID-19 Vaccine ( season) 2024 04/01/2021, 05/21/2020, 05/03/2020 GFR 01/20/2025 01/21/2024, 04/14, 11/28/2019, Additional history exists Pap Smear 07/05/2026 07/05/2023, [...] complete this topic HPV (Gardasil) Vaccine Completed , 08/26/2012, 10/25/2011 MENINGOCOCCAL (MENACTRA/MENVEO) Completed 12/09/2015, 10/25/2011 [...] ultrasonics 28 weeks gestation of state, incidental documented in this encounter Additional Health Concerns Active Problems Noted Date Diagnosed Date OB Reminders 01/21/2024 documented as of this encounter Care Teams Diving Board Assembler Relationship Specialty Start Date End Date Jerrod Abraham PA-C [address] [facility] [place] [address] PCP - General Physician Rn House Supervisor 01/28/24 documented as of this encounter
--- OUTSIDE RECORDS SUMMARY | 2024-08-13 14:49 | External Medical Summary ---
Author Name Unknown Address Unknown Organization K0G:LABORATORY [place] [address] [place] [address] Laboratory Report Ordering Provider Test Date Status JUAN QUINTANILLA 05/29/2024 09:56:34 Final Observation Date Value Abnormality Reference (Units ) Status SYNC LEUKOCYTES IN BLOOD BY AUTOMATED COUNT 05/29/2024 09:56:34 11.61 Above high normal 4.00-10.80 (K/uL) Final Segs 05/29/2024 09:56:34 74.1 40.0-75.0 (%) Final Lymphs % 05/29/2024 09:56:34 16.3 Below low normal 18.0-42.0 (%) Final Monos 05/29/2024 09:56:34 7.6 1.0-11.0 (%) Final Eosinophils 05/29/2024 09:56:34 1.7 0.0-6.0 (%) Final Basos 05/29/2024 09:56:34 0.3 0.0-2.0 (%) Final Absolute Segs 05/29/2024 09:56:34 8.61 Above high normal 1.80-7.70 (K/uL) Final Lymphs, absolute 05/29/2024 09:56:34 1.89 1.00-4.80 (K/ul) Final Monos, Abs 05/29/2024 09:56:34 0.88 0.00-1.10 (K/uL) Final Eos, Abs 05/29/2024 09:56:34 0.20 0.00-0.70 (K/uL) Final Basos, Abs 05/29/2024 09:56:34 0.03 0.00-0.20 (K/uL) Final Performing Location [facility] [address] - [address] [place] [address]
--- OUTSIDE RECORDS SUMMARY | 2024-08-13 14:49 | External Medical Summary ---
Author Name Unknown Address Unknown Organization K01:LABORATORY [facility] - [address] [place] [address] Laboratory Report Ordering Provider Test Date Status JUAN QUINTANILLA 05/29/2024 09:56:34 Final Observation Date Value Abnormality Reference (Units ) Status Iron 05/29/2024 09:56:34 69 33-151 (ug /dL) Final Iron-binding capacity 05/29/2024 09:56:34 353 250-425 (ug/dL) Final Transferrin Sat % 05/29/2024 09:56:34 20 15 -55 (%) Final Performing Location LABORATORY [facility] - [address] [place] [id number]
--- OUTSIDE RECORDS SUMMARY | 2024-08-13 14:49 | External Medical Summary ---
Author Name Unknown Address Unknown Organization K01:LABORATORY [facility] [place] - [address] [facility] [place] [address] Laboratory Report Ordering Provider Test Date Status JUAN QUINTANILLA 05/29/2024 09:56:34 Final Observation Date Value Abnormality Reference (Units ) Status Treponema pallidum Ab [Presence] in Serum by Immunoassay 05/29/2024 09:56:34 Nonreactive Nonreactive Final No serologic evidence of syp hilis. No additional testing clinicially indicated at this time. Consider repeat testing in 2-4 weeks if acute or primary syphilis is suspected. Performing Location LABORATORY [facility] [place] - [address] [place] [address]
--- OUTSIDE RECORDS SUMMARY | 2024-08-13 14:49 | External Medical Summary ---
Author Name Unknown Address Unknown Organization K01:LABORATORY [facility] - [address] [place] [address] Laboratory Report Ordering Provider Test Date Status JUAN QUINTANILLA 05/29/2024 09:56:34 Final Observation Date Value Abnormality Reference (Units ) Status Folic Acid 05/29/2024 09:56:34 19.6 >4.5 (ng/ mL) Final Performing Location LABORATORY [facility] - [address] [place] [address]
--- OUTSIDE RECORDS SUMMARY | 2024-08-13 14:49 | External Medical Summary | Summary of Care ---
Author Name Unknown Organization [facility] Address [address] [place] [address] Phone [phone] Care Team Providers Care Insurance Application Investigator Name Role Phone Jerrod Abraham PA-C Primary Care Provide r Encounter Details Date Type Department Care Team (Late st Contact Info) Description 05/29/2024 8:00 AM EST Office Visit Stiff Leg Derrick Operator Obstetrics Maternal Medicine, [address] [address] Ronaldo Gloriakulwinder Henderson, DO [address] [place] [address] Obesity affecting , antepartum, unspecified [...] assessment of proteinuria (24-hour urine protein or dyuqbep-ml-yllnpmkoij ratio) and CBC, serum AST/ALT/creatinine. If patient [...] preeclamptic labs with CBC, serum AST/ALT/creatinine and veskjlz-ee-tqngrshyxi ratio or 24-hour urine protein JONAH if not already done. Recommend anesthesia consult during the antepartum period. Estimated Date of Delivery Comme nts Yes 08/19/2024 Based on last ri nstrual period of 11/13/2023 (Exact Date) documented [...] Measles/Mumps/Rubella Vaccine 10/19/2004,1 Meningococcal B, 2/3-Dose Se oquendo (INNAA) 11/28/2019,09/23/2018 Meningococcal Conjugate Vacc ine (Menactra/Menveo) 12/09/2015,10/25/2011 [...] money to get more. Never true 04/01/2024 [place] Depression Scale Answer Date Recorded [place] Depression Scale Total 2 01/21/2024 The thought [...] No 04/01/2024 Does the household have a [facility] source of income? 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 Not [...] Sondra Lees [address] [place] [address] Yomaira Keenan CRNP [address] [place] [address] 06/26/2024 8:00 AM EST Imaging Maternal Medicine Imaging, [facility] [address] [place] [address] 07/24/2024 11:00 AM EDT Imaging Maternal Medicine ImagingYamileth Randall [address] [place] [address] 09/11/2024 12:00 PM EDT Office Visit Family Practice [facility] [address] [place] [address] Jerrod Abraham PA-C [address] [place] [address] Health Maintenance Due Date Last Done Comments [...] documented as of this encounter Care Teams Insurance Application Investigator Relationship Specialty Start Date End Date Jerrod Abraham PA-C [address] [facility] [place] [phone] PCP - General Physician Labor Gang Supervisor 01/28/24 documented as of this encounter
--- OUTSIDE RECORDS SUMMARY | 2024-08-13 14:49 | External Medical Summary | Summary of Care ---
Author Name Unknown Organization [facility] Address [address] [facility] [place] [address] Phone [phone] Care Team Providers Care Silver Holloware Assembler Name Role Phone Jerrod Abraham PA-C Primary Care Provide r Reason for Referral * (Within 10 days (routine)) Specialty Diagnoses / Procedures Referred By Araceli kay [facility] Ante[facility] anemia complicating Yomaira Keenan CRNP [address] [facility] [place] [address] Phone: tel: fax: Referral ID Status Reason Start Date Expiration Date Visits Re quested Visits Authorized Question Answer Referral Priority Within 10 days (routine) Where should this appointment be scheduled? Efraíner Reason for Visit * Reason Onset Date Comments Test Results 05/30/2024 Blood management referral Encounter Details Date Type Department Care Team (Late st Contact Info) Description 05/30/2024 Telephone Gynecology/Obstetrics [facility] [address] [place] [address] Yomaira Keenan CRNP [address] [place] [address] Test Results (Blood management referral) Allergies No known active allergiesdocumented as of [...] assessment of proteinuria (24-hour urine protein or nbciqyz-fz-wgdqtuvocw ratio) and CBC, serum AST/ALT/creatinine. If patient [...] preeclamptic labs with CBC, serum AST/ALT/creatinine and esnjizx-jx-glxhecqtwy ratio or 24-hour urine protein JONAH if [...] money to get more. 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 Agreeable to referral. She states her urine is getting more cloudy and was concerned about the urine dip. I did tell her that having leuks in the urine during is normal. * Telephone Encounter - Ne Connell LPN - 05/30/2024 9:29 AM EST left message for patient to call office * Telephone Encounter - Yomaira Keenan CRNP - 05/30/2024 9:13 AM EST Pt passed her glucola but is anemic. Recommend IV iron infusion. If agreeable, please route back and I'll place the referral. documented in this encounter Plan of Treatment Upcoming Encounters Date Type Department Care Team (Late st Contact Info) Description 06/09/2024 8:15 AM EST Office Visit Gynecology/Obstetrics Sondra Lees [address] [place] [address] Yomaira Keenan CRNP [address] [place] [address] 06/26/2024 8:00 AM EST Imaging Maternal Medicine Imaging, Yamileth Lees [address] [place] [address] 07/24/2024 11:00 AM EDT Imaging Maternal Medicine Imaging, Yamileth Prakash [address] [place] [address] 09/11/2024 12:00 PM EDT [facility] [address] [place] [address] Jerrod Abraham PA-C [address] [place] [address] Scheduled Referrals Name Type Priority Associated Diagnoses Orde r Schedule BLOOD MANAGEMENT REFERRAL Referral Within 10 days (routine) Antepartum anemia complicating Ordered: 05/30/2024 Health Maintenance Due Date Last [...] documented as of this encounter Care Teams Silver Holloware Assembler Relationship Specialty Start Date End Date Jerrod Abraham PA-C [address] [facility] [place] [address] PCP - General Physician Certified Professional Ergonomist 01/28/24 documented as of this encounter
--- OUTSIDE RECORDS SUMMARY | 2024-08-13 14:49 | External Medical Summary | Summary of Care ---
Author Name Unknown Organization [facility] [address] [facility] [facility] [address] Phone [phone] Care Team Providers Care Betting Clerks Name Role Phone Jerrod Abraham PA-C Primary Care Provide r Reason for Visit * Reason Comments Outpatient Testing Encounter Details Date Type Department Care Team (Late st Contact Info) Description 05/29/2024 8:30 AM EST Laboratory [facility], [facility] [address] [facility] [id number] [facility] [address] [place] [address] Supervision of high risk in second trimester Allergies No known active allergiesdocumented as of [...] assessment of proteinuria (24-hour urine protein or vsauvbl-ws-ogjenqdtke ratio) and CBC, serum AST/ALT/creatinine. If patient [...] Results Component Value Date/Time HEMOGLOBIN A1C - [facility] 5.2 06/05/2023 09:00 AM Assessment & Plan [...] preeclamptic labs with CBC, serum AST/ALT/creatinine and guvzujq-aj-hifhdghxix ratio or 24-hour urine protein JONAH if [...] Vaccine 10/19/2004,1 Meningococcal B, 2/3-Dose Se azra (DALE) 11/28/2019,09/23/2018 Meningococcal Conjugate Vacc ine (Menactra/Menveo) 12/09/2015,10/25/2011 [...] money to get more. 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 Not on file documented as of this encounter Plan of Treatment Upcoming Encounters Date Type Department Care Team (Late st Contact Info) Description 06/09/2024 8:15 AM EST Office Visit Gynecology/Obstetrics Sondra Lees [address] [place] [address] Yomaira Keenan CRNP [address] [place] [address] 06/26/2024 8:00 AM EST Imaging Maternal Medicine Imaging, Yamileth Randall [address] [place] [address] 07/24/2024 11:00 AM EDT Imaging Maternal Medicine Imaging, Yamileth Prakash [address] [place] [address] 09/11/2024 12:00 PM EDT [facility] [place] [place] [address] Jerrod Abraham PA-C [address] [facility] [place] [address] Pending Results Name Type Priority Associated Diagnoses Date /Time SYPHILIS ANTIBODY SCREEN WITH REFLEX TO RPR Lab Routine Supervision of high risk in second trimester 05/29/2024 9:56 AM EST 50-G GESTATIONAL GLUCOSE, 1 HOUR Lab Routine Supervision of high risk in second trimester 05/29/2024 9:56 AM EST CBC WITH WBC DIFFERENTIAL AND ANEMIA REFLEX WORKUP Lab Routine Supervision of high risk in second trimester 05/29/2024 9:56 AM EST SYPHILIS ANTIBODY SCREEN Lab Routine Supervision of high risk in second trimester 05/29/2024 9:56 AM EST ANEMIA CBC Lab Routine Supervision of high risk in second trimester 05/29/2024 9:56 AM EST DIFFERENTIAL, AUTOMATED Lab Routine Supervision of high risk in second trimester 05/29/2024 9:56 AM EST ANEMIA REFLEX CHEMISTRY HOLD Lab Routine Supervision of high risk in second trimester 05/29/2024 9:56 AM EST Health Maintenance Due Date Last Done Comments [...] ultrasonics 24 weeks gestation of state, incidental Supervision of high risk in second trimester Unspecified high-risk Obesity affecting , antepartum, unspecified trimester- Primary Ultrasound for screening for growth restriction screening for growth retardation using ultrasonics 28 weeks gestation of state, incidental documented in this encounter Additional Health Concerns Active Problems Noted Date Diagnosed Date OB Reminders 01/21/2024 documented as of this encounter Care Teams Betting Clerks Relationship Specialty Start Date End Date Jerrod Abraham PA-C [address] [facility] [place] [address] PCP - General Physician Retirement Plan Counselor 01/28/24 documented as of this encounter
--- OUTSIDE RECORDS SUMMARY | 2024-08-13 14:49 | External Medical Summary ---
Author Name Unknown Address Unknown Organization K01:LABORATORY C - [address] [place] [address] Laboratory Report Ordering Provider Test Date Status JUAN QUINTANILLA 05/29/2024 09:56:34 Final Observation Date Value Abnormality Reference (Units ) Status TSH 05/29/2024 09:56:34 3.25 0.27-4.20 (uIU/mL) Final Performing Location [facility] - [address] [place] [address]
--- OUTSIDE RECORDS SUMMARY | 2024-08-13 14:49 | External Medical Summary ---
Author Name Unknown Address Unknown Organization [id number]:LABORATORY [facility] - [address] [place] [address] Laboratory Report Ordering Provider Test Date Status JUAN QUINTANILLA 05/29/2024 09:56:34 Final Observation Date Value Abnormality Reference (Units ) Status Nucleated erythrocytes/100 leukocytes [Ratio] in Blood by Automated count 05/29/2024 09:56:34 Final Performing Location LABORATORY [facility] 0 - [address] [place] [address]
--- OUTSIDE RECORDS SUMMARY | 2024-08-13 14:49 | External Medical Summary ---
Author Name Unknown Address Unknown Organization [id number]:LABORATORY [facility] - [address] [place] [address] Laboratory Report Ordering Provider Test Date Status JUAN QUINTANILLA 05/29/2024 09:56:34 Final Observation Date Value Abnormality Reference (Units ) Status Creatinine 05/29/2024 09:56:34 0.6 0.5-1.0 (mg/dL) Final Glomerular filtration rate/1.73 sq M.predicted [Volume Rate/Area] in Serum, Plasma or Blood by Creatinine-based formula (CKD-EPI) 05/29/2024 09:56:34 >90 >=60 (mL/min) Final eGFR is calculated based on the CKD-EPI 2020 equation. Performing Location LABORATORY [facility] - [address] [place] [address]
--- OUTSIDE RECORDS SUMMARY | 2024-08-13 14:49 | External Medical Summary | Summary of Care ---
Author Name Unknown Organization [facility] Address [address] [facility] [place] [address] Phone [phone] Care Team Providers Care Light Coil Winder Name Role Phone Jerrod Abraham PA-C Primary Care Provide r Reason for Visit * Reason Comments Return Visit Encounter Details Date Type Department Care Team (Late st Contact Info) Description 05/20/2024 2:15 PM EST Office Visit Gynecology/Obstetric s [facility] [address] [place] [address] Yomaira Keenan CRNP [address] [place] [address] Supervision of high risk in second trimester*; Obesity affecting , antepartum, unspecified trimester; Chronic hypertension affecting Allergies No known active allergiesdocumented as of this encounter (statuses as of 05/20/2024) Medications 28-0.8 MG Oral Tablet Take by [...] as of this encounter (statuses as of 05/20/2024) Active Problems Problem Noted Date Diagnosed Date [...] 10/25/20 110/70 04/21/20 116/82 Assessment & Plan (04/29/2024 12:04 PM EST): [...] assessment of proteinuria (24-hour urine protein or apecomf-kb-ozpanzvwjb ratio) and CBC, serum AST/ALT/creatinine. If patient [...] should continue medication during . Discontinuation of RNEÉ inhibitors or angiotensin type II receptor antagonists [...] preeclamptic labs with CBC, serum AST/ALT/creatinine and otkrhyy-in-zukxnwtcpg ratio or 24-hour urine protein JONAH if not already done. Recommend anesthesia consult during the antepartum period. Estimated Date of Delivery Comme nts Yes 08/19/2024 Based on last me nstrual period of 11/13/2023 (Exact Date) documented as of this encounter (statuses as of 05/20/2024) Resolved Problems Problem Noted Date Diagnosed Date [...] as of this encounter (statuses as of 05/20/2024) Immunizations Name Administration Dates Next Due COVID-19 [...] TDAP, Age 7 and older, IM (Adacel) 08/26/2012 Varicella Vaccine (Chicken Pox) 08/30/2011,02/28 documented as [...] money to get more. 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 Good FM. No contractions, bleeding, or LOF. Taking BP at home, in normal range. Glucola next week to match up with MFM appts. BARBARA Wall[place] * Laura Sommers CMA - 05/20/2024 2:18 PM EST 27w0d Denies any concerns documented in this encounter Plan of Treatment Upcoming Encounters Date Type Department Care Team (Late st Contact Info) Description 05/29/2024 8:00 AM EST Imaging Maternal Medicine Imaging, Yamileth Lees [address] [place] [address] 05/29/2024 8:30 AM EST Laboratory Laboratory, [facility] [address] [place] [address] Corina Randall Rust [address] [place] [address] 05/29/2024 10:15 AM EST Office Visit Gynecology/Obstetrics [facility] [address] [place] [address] Yomaira Keenan CRNP [address] [place] [address] 06/26/2024 8:00 AM EST Imaging Maternal Medicine Imaging, Yamileth [facility] [address] [place] [address] 09/11/2024 12:00 PM EDT Office Visit Family Practice [place] Julio Cesar [address] [place] [address] Jerrod Abraham PA-C [address] [place] [address] Scheduled Orders Name Type Priority Associated Diagnoses Orde r Schedule SYPHILIS ANTIBODY SCREEN WITH REFLEX TO RPR Lab Routine Supervision of high risk in second trimester Expected: 05/20/2024 (Approximate), Expires: 05/20/2025 50-G GESTATIONAL GLUCOSE, 1 HOUR Lab Routine Supervision of high risk in second trimester Expected: 05/20/2024 (Approximate), Expires: 05/20/2025 CBC WITH WBC DIFFERENTIAL AND ANEMIA REFLEX WORKUP Lab Routine Supervision of high risk in second trimester Expected: 05/20/2024 (Approximate), Expires: 05/20/2025 Health Maintenance Due Date Last Done Comments Depression Screening 11/27/2020 11/28/2019 DTap/Tdap Vaccines (7 - Td or Tdap) 08/26/2022 08/26/2012, 10/19/2004, 07/23/2000, Additional history exists COVID-19 Vaccine ( season) 2024 04/01/2021, 05/21/2020, 05/03/2020 GFR 01/20/2025 01/21/2024, 04/14, 11/28/2019, Additional history exists Pap Smear 07/05/2026 07/05/2023, 10/25/2020 Hepatitis B Vaccine Completed 1999, 1999, 1999 [...] incidental Supervision of high risk in second trimester- Primary Unspecified high-risk Obesity affecting , antepartum, unspecified trimester Chronic hypertension affecting documented in this encounter Additional Health Concerns Active Problems Noted Date Diagnosed Date OB Reminders 01/21/2024 documented as of this encounter Care Teams Light Coil Winder Relationship Specialty Start Date End Date Jerrod Abraham PA-C [address] [facility] [place] [phone] PCP - General Physician Electrical Maintenance Technician 01/28/24 documented as of this encounter
--- OUTSIDE RECORDS SUMMARY | 2024-08-13 14:49 | External Medical Summary ---
Author Name Unknown Address Unknown Organization K0G:LABORATORY [facility] - [address] [place] [address] Laboratory Report Ordering Provider Test Date Status JUAN QUINTANILLA 05/29/2024 09:14:00 Final Observation Date Value Abnormality Reference (Units ) Status Color of Urine by Auto 05/29/2024 09:14:00 Yellow Light Yellow, Yellow Final Clarity, Urine 05/29/2024 09:14:00 Clear Clear Final Glucose [Mass/volume] in Urine by Automated test strip 05/29/2024 09:14:00 Negative Negative (mg/dL) Final Bilirubin.total [Presence] in Urine by Automated test strip 05/29/2024 09:14:00 Negative Negative Final Ketones [Mass/volume] in Urine by Automated test strip 05/29/2024 09:14:00 Negative Negative (mg/dL) Final Specific gravity, Urine 05/29/2024 09:14:00 1.010 1.003-1.030 Final Hemoglobin [Presence] in Urine by Automated test strip 05/29/2024 09:14:00 Negative Negative Final pH, Urine 05/29/2024 09:14:00 7.0 5.0, 5.5, 6.0, 6.5, 7.0, 7.5 (units) Final Protein [Mass/volume] in Urine by Automated test strip 05/29/2024 09:14:00 Negative Negative (mg/dL) Final Urobilinogen, Urine 05/29/2024 09:14:00 0.2 0.2, 1.0 (mg/dL) Final Nitrite [Presence] in Urine by Automated test strip 05/29/2024 09:14:00 Negative Negative Final Leukocyte esterase [Presence] in Urine by Automated test strip 05/29/2024 09:14:00 Trace Abnormal Negative Final Performing Location LABORATORY [facility] 0 - [address] [place] [address]
--- OUTSIDE RECORDS SUMMARY | 2024-08-13 14:49 | External Medical Summary | Summary of Care ---
Author Name Unknown Organization [facility] Address [address] [facility] [address] Phone [phone] Care Team Providers Care Hand Turner Name Role Phone Jerrod Abraham PA-C Primary Care Provide r Reason for Visit * Reason Comments Return Visit Encounter Details Date Type Department Care Team (Late st Contact Info) Description 05/29/2024 10:15 AM EST Office Visit Gynecology/Obstetric s [facility] [address] [place] [address] Yomaira Keenan CRNP [address] [place] [address] Supervision of high risk in third trimester*; Obesity affecting , antepartum, unspecified trimester; Chronic hypertension affecting ; Need for xtfbzjoipp-bhdylva-sa rtussis (Tdap) vaccine Allergies No known active allergiesdocumented as of [...] assessment of proteinuria (24-hour urine protein or vuzdrbe-ml-fljdqkgwwk ratio) and CBC, serum AST/ALT/creatinine. If patient [...] preeclamptic labs with CBC, serum AST/ALT/creatinine and xgrgrsn-ht-boliazrrrj ratio or 24-hour urine protein JONAH if [...] money to get more. 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 Baby is active. No contractions, bleeding, LOF. Had growth u/s with MFM today, report pending. +cardiac activity on u/s. Glucola today. TDAP today. BARBARA Wallis * Laura Sommers CMA - 05/29/2024 9:02 AM EST 28w2d Denies any concerns TDAP vaccine today documented in this encounter Plan of Treatment Upcoming Encounters Date Type Department Care Team (Late st Contact Info) Description 06/09/2024 8:15 AM EST Office Visit Gynecology/Obstetrics Sondra Randall [address] [place] [address] Yomaira Keenan CRNP [address] [place] [address] 06/26/2024 8:00 AM EST Imaging Maternal Medicine Imaging, Yamileth Randall [address] [place] [address] 07/24/2024 11:00 AM EDT Imaging Maternal Medicine Imaging, Yamileth Randall [address] [place] [address] 09/11/2024 12:00 PM EDT Office Visit Family Practice [facility] [place] [address] Jerrod Abraham PA-C [address] [address] Health Maintenance Due Date Last Done Comments [...] Comments URINALYSIS OBSTETRICS, POINT OF CARE JONAH 05/29/2024 9:14 AM EST documented in this encounter Results * (ABNORMAL) URINALYSIS OBSTETRICS, POINT OF CARE (05/29/2024 9:14 AM EST) Color, Urine Yellow Light Yellow, Yellow 05/29/2024 9:16 AM EST LAB[facility] Clarity, Urine Clear Clear 05/29/2024 9:16 AM EST [facility] Glucose, Urine Negative Negative mg/dL 05/29/2024 9:16 AM EST [facility] [place] [facility] Bilirubin, Urine Negative Negative 05/29/2024 9:16 AM EST [facility] [place] [facility] Ketone, Urine Negative Negative mg/dL 05/29/2024 9:16 AM EST [facility] [place] [facility] Specific [place], Urine 1.010 1.003 - 1.030 05/29/2024 9:16 AM EST [facility] Blood, Urine Negative Negative 05/29/2024 9:16 AM EST [facility] [place] [facility] pH, Urine 7.0 5.0, 5.5, 6.0, 6.5, 7.0, 7.5 units 05/29/2024 9:16 AM EST [facility] [place] [facility] Protein, Urine Negative Negative mg/dL 05/29/2024 9:16 AM EST [facility] [place] [facility] Urobilinogen, Urine 0.2 0.2, 1.0 mg/dL 05/29/2024 9:16 AM EST [facility] [place] [facility] Nitrite, Urine Negative Negative 05/29/2024 9:16 AM EST [facility] [place] [facility] Esterase, Urine Trace(A) Negative 05/29/2024 9:16 AM EST [facility] [place] [facility] Urine 05/29/2024 9:14 AM EST 05/29/2024 9:16 AM EST us Yomaira Keenan MILL WASHER LAB POINT OF CARE TE ST DOCKED DEVICE UNSOLICITED RESULTS Final Result [facility] [place] [address] documented in this encounter Visit Diagnoses Diagnosis [...] , antepartum, unspecified trimester Chronic hypertension affecting Need for kzueaymwgs-rgegyjy-bxxjqgxcp (Tdap) vaccine Need for prophylactic vaccination with combined vptzqxhohn-gjsglyz-flfohfhsk (DTP) vaccine documented in this encounter Additional Health Concerns Active Problems Noted Date Diagnosed Date OB Reminders 01/21/2024 documented as of this encounter Care Teams Hand Turner Relationship Specialty Start Date End Date Jerrod Abraham PA-C [address] [facility] [place] [address] PCP - General Physician Shaper And Presser 01/28/24 documented as of this encounter
--- OUTSIDE RECORDS SUMMARY | 2024-08-13 14:49 | External Medical Summary ---
Author Name Unknown Address Unknown Organization K0G:LABORATORY [facility] - [address] [place] [address] Laboratory Report Ordering Provider Test Date Status JUAN QUINTANILLA 05/29/2024 09:56:34 Final Observation Date Value Abnormality Reference (Units ) Status WBC, Total 05/29/2024 09:56:34 11.61 Above high normal 4 .00-10.80 (K/uL) Final RBC 05/29/2024 09:56:34 3.45 3.85-5.15 (M/uL) Final Hemoglobin 05/29/2024 09:56:34 10.5 Below low normal 12 .0-15.3 (g/dL) Final Anemia reflex testing trigge rs on a HGB < 12.0 for Females and HGB < 13.0 for Males in accordance with the WHO Anemia Guidelines
Anemia reflex testing triggers on a HGB < 12.0 for Females and HGB < 13.0 for Males in accordance with the WHO Anemia Guidelines HCT 05/29/2024 09:56:34 32.1 Below low normal 36. 0-45.2 (%) Final MCV 05/29/2024 09:56:34 93.0 81.5-97.5 (fL) Final MCH 05/29/2024 09:56:34 30.4 27.0-34.0 (pg) Final MCHC 05/29/2024 09:56:34 32.7 32.0-36.0 (g/dL) Final RDW 05/29/2024 09:56:34 13.1 11.5-15.5 (%) Final Platelets 05/29/2024 09:56:34 277 140-400 (K /uL) Final MPV 05/29/2024 09:56:34 11.3 6.6-11.1 ( fL) Final Performing Location LABORATORY [facility] 0 - [address] [place] [address]
--- OUTSIDE RECORDS SUMMARY | 2024-08-13 14:49 | External Medical Summary ---
Author Name Unknown Address Unknown Organization K01:LABORATORY [facility] - [facility] [address] [place] [address] Laboratory Report Ordering Provider Test Date Status RHINA QUINTANILLACINDA 05/29/2024 09:56:34 Final Observation Date Value Abnormality Reference (Units ) Status Retic, % (auto) 05/29/2024 09:56:34 2.39 Above high normal 0.80-1.90 (%) Final Reticulocytes, Absolute 05/29/2024 09:56:34 82.0 31.3-100.1 (K/uL) Final Reticulocyte fraction, immature 05/29/2024 09:56:34 14.3 2.5-20.6 (%) Final Reticulocyte HGB 05/29/2024 09:56:34 32.9 29.7-37.4 (pg) Final Performing Location LABORATORY [facility] - [address] [place] [address]
--- OUTSIDE RECORDS SUMMARY | 2024-08-13 14:49 | External Medical Summary ---
Author Name Unknown Address Unknown Organization K01:LABORATORY C - [address] [place] [address] Laboratory Report Ordering Provider Test Date Status JUAN QUINTANILLA 05/29/2024 09:56:34 Final Observation Date Value Abnormality Reference (Units ) Status Vitamin B12 05/29/2024 09:56:34 [phone] (pg/mL) Final Performing Location [facility] - [address] [place] [address]
--- OUTSIDE RECORDS SUMMARY | 2024-08-13 14:50 | External Medical Summary | Summary of Care ---
Author Name Unknown Organization [facility] Address [address] [place] [address] Phone [phone] Care Team Providers Care Terra Cotta Mason Name Role Phone Jerrod Abraham PA-C Primary Care Provide r Reason for Visit * Reason Comments Ultrasound Encounter Details Date Type Department Care Team (Late st Contact Info) Description 04/29/2024 3:15 PM EST Office Visit [facility] Obstetrics Maternal Medicine, [place] [address] [place] [address] Gloria Higgins, [address] [place] [address] Chronic hypertension affecting *; Obesity affecting , antepartum, unspecified trimester; Ultrasound for screening for growth restriction; 24 weeks gestation of Allergies No known active allergiesdocumented as of this encounter (statuses as of 04/29/2024) Medications 28-0.8 MG Oral Tablet Take by [...] as of this encounter (statuses as of 04/29/2024) Active Problems Problem Noted Date Diagnosed Date [...] assessment of proteinuria (24-hour urine protein or twcurxa-cg-bazfbapfzo ratio) and CBC, serum AST/ALT/creatinine. If patient [...] preeclamptic labs with CBC, serum AST/ALT/creatinine and pbjhzbw-ef-ysxcjmjele ratio or 24-hour urine protein JONAH if not already done. Recommend anesthesia consult during the antepartum period. Estimated Date of Delivery Comme nts Yes 08/19/2024 Based on last me nstrual period of 11/13/2023 (Exact Date) documented as of this encounter (statuses as of 04/29/2024) Resolved Problems Problem Noted Date Diagnosed Date [...] as of this encounter (statuses as of 04/29/2024) Immunizations Name Administration Dates Next Due COVID-19 [...] money to get more. Never true 04/01/2024 [place] Depression Scale Answer Date Recorded [place] Depression Scale Total 2 01/21/2024 The thought [...] 04/01/2024 Transportation Needs Answer Date Record ed READ ONLY Do you have troubl e getting a ride to medical visits or work? Never True 04/01/2024 Does your family have a hard [...] place to sleep at night? No 04/01/2024 READ ONLY Do you think you a re at risk of becoming homeless? No 04/01/2024 Does your family worry about paying [...] Industry Job Start Date Job End Date [employer] Not on file Not on file Not on file documented as of this encounter Progress Notes * Gloria Higgins DO - 04/29/2024 4:11 PM EST Kaitlynn presented today at 24w0d for an ultrasound for the following indications: Chronic hypertension affecting Assessment & Plan: BP Readings from Last 5 Encounters: 04/15/24 132/80 03/31/24 137/69 03/18/24 126/74 02/18/24 124/74 01/28/24 122/66 Please titrate medication to maintain goal BP < 140/90. Obesity affecting , antepartum, unspecified trimester Ultrasound for screening for growth restriction 24 weeks gestation of Ultrasound summary: Patient presented at 24w 0d for growth assessment. Normal growth with EFW 619 g at 28%ile. Normal GAMALIEL at 14.9 cm. Cephalic presentation. I reviewed the ultrasound [...] call with any questions. Gloria Higgins DO 04/29/2024 4:11 PM documented in this encounter Miscellaneous Notes * Assessment & Plan Note - Gloria Higgins DO - 04/29/2024 12:04 PM EST Associated Problem(s): Chronic hypertension affecting BP Readings from Last 5 Encounters: 04/15/24 132/80 03/31/24 137/69 03/18/24 126/74 02/18/24 124/74 01/28/24 122/66 Please titrate medication to maintain goal BP < 140/90. documented in this encounter Plan of Treatment Upcoming Encounters Date Type Department Care Team (Late st Contact Info) Description 05/20/2024 2:15 PM EST Office Visit Gynecology/Obstetrics Sond[facility] [address] [place] [address] Yomaira Keenan CRNP [address] [place] [id number] 05/29/2024 8:00 AM EST Imaging Maternal Medicine Imaging, Yamileth Randall [address] [place] [phone] 06/26/2024 8:00 AM EST Imaging Maternal Medicine Imaging, [facility] Randall [address] [place] [phone] 09/11/2024 12:00 PM EDT Office Visit Family Practice [address] [place] [address] Jerrod Abraham PA-C [address] [place] [address] Health Maintenance Due Date Last Done Comments [...] 5 Years) and At-Risk Patients (6 to 64 Years) Aged Out 12/19/2002 No longer eligible based on patient's age to complete this [...] ultrasonics 24 weeks gestation of state, incidental documented in this encounter Additional Health Concerns Active Problems Noted Date Diagnosed Date OB Reminders 01/21/2024 documented as of this encounter Care Teams Terra Cotta Mason Relationship Specialty Start Date End Date Jerrod Abraham PA-C [address] [facility] [place] [phone] PCP - General Physician Waste Examiner 01/28/24 documented as of this encounter
--- OUTSIDE RECORDS SUMMARY | 2024-08-13 14:50 | External Medical Summary ---
Author Name Unknown Address Unknown Organization [facility] [address] [place] [id number] Laboratory Report Ordering Provider Test Date Status JUAN QUINTANILLA 04/15/2024 14:48:00 Final Observation Date Value Abnormality Reference (Units ) Status Color of Urine by Auto 04/15/2024 14:48:00 Yellow Light Yellow, Yellow Final Clarity, Urine 04/15/2024 14:48:00 Clear Clear Final Glucose [Mass/volume] in Urine by Automated test strip 04/15/2024 14:48:00 Negative Negative (mg/dL) Final Bilirubin.total [Presence] in Urine by Automated test strip 04/15/2024 14:48:00 Negative Negative Final Ketones [Mass/volume] in Urine by Automated test strip 04/15/2024 14:48:00 Negative Negative (mg/dL) Final Specific gravity, Urine 04/15/2024 14:48:00 1.025 1.003-1.030 Final Hemoglobin [Presence] in Urine by Automated test strip 04/15/2024 14:48:00 Negative Negative Final pH, Urine 04/15/2024 14:48:00 7.5 5.0, 5.5, 6.0, 6.5, 7.0, 7.5 (units) Final Protein [Mass/volume] in Urine by Automated test strip 04/15/2024 14:48:00 Negative Negative (mg/dL) Final Urobilinogen, Urine 04/15/2024 14:48:00 0.2 0.2, 1.0 (mg/dL) Final Nitrite [Presence] in Urine by Automated test strip 04/15/2024 14:48:00 Negative Negative Final Leukocyte esterase [Presence] in Urine by Automated test strip 04/15/2024 14:48:00 Negative Negative Final Performing Location [facility] [address] [place] [id number]
--- OUTSIDE RECORDS SUMMARY | 2024-08-13 14:50 | External Medical Summary ---
Author Name Unknown Address Unknown Organization [facility] [address] [place] [id number] Laboratory Report Ordering Provider Test Date Status JUAN QUINTANILLA 03/18/2024 14:01:00 Final Observation Date Value Abnormality Reference (Units ) Status Color of Urine by Auto 03/18/2024 14:01:00 Yellow Light Yellow, Yellow Final Clarity, Urine 03/18/2024 14:01:00 Clear Clear Final Glucose [Mass/volume] in Urine by Automated test strip 03/18/2024 14:01:00 Negative Negative (mg/dL) Final Bilirubin.total [Presence] in Urine by Automated test strip 03/18/2024 14:01:00 Negative Negative Final Ketones [Mass/volume] in Urine by Automated test strip 03/18/2024 14:01:00 Negative Negative (mg/dL) Final Specific gravity, Urine 03/18/2024 14:01:00 1.015 1.003-1.030 Final Hemoglobin [Presence] in Urine by Automated test strip 03/18/2024 14:01:00 Negative Negative Final pH, Urine 03/18/2024 14:01:00 6.5 5.0, 5.5, 6.0, 6.5, 7.0, 7.5 (units) Final Protein [Mass/volume] in Urine by Automated test strip 03/18/2024 14:01:00 Negative Negative (mg/dL) Final Urobilinogen, Urine 03/18/2024 14:01:00 0.2 0.2, 1.0 (mg/dL) Final Nitrite [Presence] in Urine by Automated test strip 03/18/2024 14:01:00 Negative Negative Final Leukocyte esterase [Presence] in Urine by Automated test strip 03/18/2024 14:01:00 Negative Negative Final Performing Location [facility] [address] [place] [id number]
--- OUTSIDE RECORDS SUMMARY | 2024-08-13 14:50 | External Medical Summary | Summary of Care ---
Author Name Unknown Organization [facility] Address [address] [facility] [place] [address] Phone [phone] Care Team Providers Care Stud Master/Mistress Name Role Phone Jerrod Abraham PA-C Primary Care Provide r Reason for Visit * Reason Comments Return Visit Encounter Details Date Type Department Care Team (Late st Contact Info) Description 03/18/2024 1:30 PM EST Office Visit Gynecology/Obstetric s [facility] [address] [place] [address] Yomaira Keenan CRNP [address] [place] [address] Supervision of high risk in second trimester*; Obesity affecting , antepartum, unspecified trimester; Chronic hypertension affecting Allergies No known active allergiesdocumented as of this encounter (statuses as of 03/18/2024) Medications Medication Sig Dispensed Refills Start Date End Date Status 28-0.8 MG Oral Tablet Take by mouth. Active Doxylamine Succinate (Sleep) 25 MG Oral Tablet (Unisom)Indications:E ncounter for supervision of normal first in first trimester Take 1 Tablet by mouth every night at bedtime. 30 Tablet 1 01/21/2024 Active Labetalol HCl 100 MG Oral Tablet (Normodyne)Indication s:HTN, goal below 130/80 Take 1 Tablet by mouth in the morning and 1 Tablet before bedtime. 180 Tablet 3 01/28/2024 Active Aspirin 81 MG Oral Tablet Chewable (Aspirin 81) Take 1 Tablet by mouth in the morning. Active documented as of this encounter (statuses as of 03/18/2024) Active Problems Problem Noted Date Diagnosed Date , supervision, high-risk 02/12/2024 Chronic hypertension affecting 024 Overview: Chronic hypertension, 2023 Labetalol 100 mg PO [...] 116/76 07/05/23 118/80 10/25/20 110/70 04/21/20 116/82 Last Assessment & Plan: Considerations: Women with chronic hypertension during are at significantly increased risk for morbidity. Signs and symptoms of superimposed pre-eclampsia were reviewed; instructed patient to contact primary OB care provider if these symptoms occur. Recommendations: Obtain baseline lab work JONAH (if not already done) with assessment of proteinuria (24-hour urine protein or yafkfuh-qc-zyvucgomta ratio) and CBC, serum AST/ALT/creatinine. If patient [...] Obesity affecting , antepartum, unspecified trimester 09/23/2018 Overview: Pre gravid BMI: 42.6 Class 3 obesity 1 hour GTT ordered, not yet completed Lab Results Component Value Date/Time HEMOGLOBIN A1C - [facility] 5.2 06/05/2023 09:00 AM Last Assessment & Plan: CONSIDERATIONS: Discussed obstetrical risks associated with class [...] preeclamptic labs with CBC, serum AST/ALT/creatinine and rngarvl-qh-lbkrwdrout ratio or 24-hour urine protein JONAH if not already done. Recommend anesthesia consult during the antepartum period. Estimated Date of Delivery Comme nts Yes 08/19/2024 Based on last me nstrual period of 11/13/2023 (Exact Date) documented as of this encounter (statuses as of 03/18/2024) Resolved Problems Problem Noted Date Diagnosed Date Resolved Date with 13 completed weeks gestation 02/12/2024 02/18/2024 Class 3 obesity 01/21/2024 02/28/2024 Overview: Pregravid BMI 42.66 Baseline PEC labs Growth q4wks, weekly NST at 34 weeks MFM referral Body mass index (BMI) of 120 % to less than 140% of 95th percentile for age in pediatric patient 01/09/2017 09/23/2018 Overview: ICD-10 update of inactive term Slow transit constipation 09/17/2015 Tongue tie 01/28/2015 01/09/2017 documented as of this encounter (statuses as of 03/18/2024) Immunizations Name Administration Dates Next Due COVID-19 [...] the money to buy more. Never true 03/04/20 24 Within the past 12 months, t he food you bought just didn't last and you didn't have money to get more. Never true 03/04/2024 [place] Depression Scale Answer Date Recorded [place] Depression Scale Total 2 01/21/2024 The thought of harming myself has occurred to me . Never 01/21/2024 Childcare Answer Date Recorded Do you feel overwhelmed with taking care of a child, family member or friend? No 03/04/2024 Does your family need help f inding childcare? (Household - for ages 0-17 years) Not on file 03/04/2024 Clothing Answer Date Recorded Have you been unable to get clothing when it was really needed? No 03/04/2024 Is your family able to get c lothes or diapers when needed? (Household - for ages 0-17 years) Not on file 03/04/2024 Personal Safety Answer Date Recorded Do you feel unsafe or have concerns for your saf ety? No 03/04/2024 Do you have concerns for you r family's safety? (Household - for ages 0-17 years) Not on file 03/04/2024 Utilities Answer Date Recorded Do you have trouble paying y our heating, water, or electric bill? No 03/04/2024 Is your family able to pay t he heat, water, or electric bill? (Household - for ages 0-17 years) Not on file 03/04/2024 Does your family have access to good internet? (Household - for ages 0-17 years) Not on file 03/04/2024 Employment Status Answer Date Recorded Are you unemployed or without regular income? No 03/04/2024 Does the household have a re gular source of income? (Household - for ages 0-17 years) Not on file 03/04/2024 Social Connections Answer Date Recorded How often do you feel lonely or isolated from th ose around you? Never 03/04/2024 Financial Resource Strain Answer Date R ecorded Do you have any trouble payi ng for your medications, or do you think you might in the future? No 03/04/2024 Does your family have troubl e paying for medicine? (Household - for ages 0-17 years) Not on file 03/04/2024 Transportation Needs Answer Date Record ed READ ONLY Do you have troubl e getting a ride to medical visits or work? Never True 03/04/2024 Does your family have a hard time getting a ride to doctors visits? (Household - for ages 0-17 years) Not on file 03/04/2024 Has lack of transportation k ept you from medical appointments, meetings, work, or from getting things needed for daily living? Check all that apply. No 03/04/2024 Do you (or your family) have trouble finding or paying for a ride (transportation)? (Household - for ages 0-17 years) Not on file 03/04/2024 Housing Stability Answer Date Recorded Do you currently live in a s helter or have no steady place to sleep at night? No 03/04/2024 READ ONLY Do you think you a re at risk of becoming homeless? No 03/04/2024 Does your family worry about paying for your home or becoming homeless? (Household - for ages 0-17 years) Not on file 1 Are you homeless or worried that you might be in the future? No 03/04/2024 Are you (or your family) karen eless or worried that you might be in the future? (Household - for ages 0-17 years) Not on file Food Insecurity Answer Date Recorded Do you need food for this week? Yes 03/04/2024 Are you able to get enough f ood for your family? (Household - for ages 0-17 years) Not on file 03/04/2024 Does your family need food t his week? (Household - for ages 0-17 years) Not on file 03/04/2024 Do you always have enough fo od for your family? (Household - for ages 0-17 years) Not on file 03/04/2024 Estimated Date of Delivery Comme nts Yes 08/19/2024 Based on last me nstrual period of 11/13/2023 (Exact Date) Sex and Gender Information Value Date Recorded Sex Assigned at Female 05/09/2023 2:47 PM EST Gender Identity Female 05/09/2023 2:47 PM EST Sexual Orientation Straight 05/09/2023 2: 47 PM EST Job Start Date Occupation Industry Not on file Not on file Not on file documented as of this encounter Last Filed Vital Signs Vital Sign Reading Time Taken Comments Blood Pressure 126/74 03/18/2024 1:20 PM EST Pulse - - Temperature - - Respiratory Rate - - Oxygen Saturation - - Inhaled Oxygen Concentration - - Weight 113.4 kg (250 lb) 03/18/2024 1:20 PM EST Height - - Body Mass Index 44.29 01/28/2024 4:24 PM EDT documented in this encounter Progress Notes * Yomaira Keenan CRNP - 03/18/2024 1:34 PM EST 18w No concerns. Feeling a bit of FM. No bleeding, no n/v. Discussed MSAFP, undecided. Has anatomy u/s with MFM. BARBARA Wallis * Odessa Sommers CMA - 03/18/2024 1:20 PM EST 18w0d Denies any concerns documented in this encounter Miscellaneous Notes * Addendum Note - Odessa Sommers CMA - 03/18/2024 1:50 PM ESTAddended by: ODESSA SOMMERS on: 03/18/2024 01:50 PM Modules accepted: Orders documented in this encounter Plan of Treatment Upcoming Encounters Date Type Department Care Team (Late st Contact Info) Description 03/31/2024 1:30 PM EST Office Visit [facility] Obstetrics Maternal Medicine, [place] [address] [place] [address] Damaso Naranjo [address] [place] [address] 03/31/2024 1:30 PM EST Imaging [facility] [place] [address] [place] [address] 04/15/2024 2:15 PM EST Office Visit Gynecology/Obstetrics [facility] [address] [place] [address] Yomaira Keenan CRNP [address] [place] [address] 09/11/2024 12:00 PM EDT Office Visit Family Practice [address] [place] [address] Jerrod Abraham PA-C [address] [place] [id number] Scheduled Orders Name Type Priority Associated Diagnoses Orde r Schedule URINALYSIS OBSTETRICS, POINT OF CARE Point of Care Testing - Unsolicited Results Routine Chronic hypertension affecting Supervision of high risk in second trimester Ordered: 03/18/2024 Health Maintenance Due Date Last Done Comments [...] as of this encounter Visit Diagnoses Diagnosis Supervision of high risk in second trimester- Primary Unspecified high-risk Obesity affecting , antepartum, unspecified trimester Chronic hypertension affecting documented in this encounter Additional Health Concerns Active Problems Noted Date Diagnosed Date OB Reminders 01/21/2024 documented as of this encounter Care Teams Stud Master/Mistress Relationship Specialty Start Date End Date Jerrod Abraham PA-C [address] [facility] [place] [address] PCP - General Physician [employer] Admin 01/28/24 documented as of this encounter
--- OUTSIDE RECORDS SUMMARY | 2024-08-13 14:50 | External Medical Summary | Summary of Care ---
Author Name Unknown Organization [facility] Address [address] [facility] [address] Phone [phone] Care Team Providers Care Deputy Commonwealth'S Attorney Name Role Phone Jerrod Abraham PA-C Primary Care Provide r Reason for Visit * Reason Comments Outpatient Testing Encounter Details Date Type Department Care Team (Late st Contact Info) Description 03/03/2024 7:40 AM EDT [facility] [address] [facility] [place] [phone] [place], Lab [facility] [address] [facility] [place] [id number] HTN, goal below 130/80; Chronic hypertension affecting Allergies No known active allergiesdocumented as of this encounter (statuses as of 03/03/2024) Medications Medication Sig Dispensed Refills Start Date [...] before bedtime. 180 Tablet 3 01/28/2024 Active documented as of this encounter (statuses as of 03/03/2024) Active Problems Problem Noted Date Diagnosed Date [...] assessment of proteinuria (24-hour urine protein or vavwafj-wh-vkrxnkzkzo ratio) and CBC, serum AST/ALT/creatinine. If patient [...] Obesity protocol HTN, goal below 130/80 06/05/2023 Obesity affecting , antepartum, unspecified trimester 09/23/2018 [...] preeclamptic labs with CBC, serum AST/ALT/creatinine and rigcjcb-zv-tugitamojp ratio or 24-hour urine protein JONAH if not already done. Recommend anesthesia consult during the antepartum period. Estimated Date of Delivery Comme nts Yes 08/19/2024 Based on last me nstrual period of 11/13/2023 (Exact Date) documented as of this encounter (statuses as of 03/03/2024) Resolved Problems Problem Noted Date Diagnosed Date [...] as of this encounter (statuses as of 03/03/2024) Immunizations Name Administration Dates Next Due COVID-19 [...] Vaccine 10/19/2004,1 Meningococcal B, 2/3-Dose Se azra (INNAA) 11/28/2019,09/23/2018 Meningococcal Conjugate Vacc ine (Menactra/Menveo) [...] the money to buy more. Never true 05/13/20 23 Within the past 12 months, t he food you bought just didn't last and you didn't have money to get more. Never true 05/13/2023 [place] Depression Scale Answer Date Recorded [place] Depression Scale Total 2 01/21/2024 The thought of harming myself has occurred to me . Never 01/21/2024 Childcare Answer Date Recorded Do you feel overwhelmed with taking care of a child, family member or friend? No 05/13/2023 Does your family need help f inding childcare? (Household - for ages 0-17 years) Not on file 05/13/2023 Clothing Answer Date Recorded Have you been unable to get clothing when it was really needed? No 05/13/2023 Is your family able to get c lothes or diapers when needed? (Household - for ages 0-17 years) Not on file 05/13/2023 Personal Safety Answer Date Recorded Do you feel unsafe or have concerns for your saf ety? No 05/13/2023 Do you have concerns for you r family's safety? (Household - for ages 0-17 years) Not on file 05/13/2023 Utilities Answer Date Recorded Do you have trouble paying y our heating, water, or electric bill? No 05/13/2023 Is your family able to pay t he heat, water, or electric bill? (Household - for ages 0-17 years) Not on file 05/13/2023 Does your family have access to good internet? (Household - for ages 0-17 years) Not on file 05/13/2023 Employment Status Answer Date Recorded Are you unemployed or without regular income? No 05/13/2023 Does the household have a re gular source of income? (Household - for ages 0-17 years) Not on file 05/13/2023 Social Connections Answer Date Recorded How often do you feel lonely or isolated from th ose around you? Never 05/13/2023 Financial Resource Strain Answer Date R ecorded Do you have any trouble payi ng for your medications, or do you think you might in the future? No 05/13/2023 Does your family have troubl e paying for medicine? (Household - for ages 0-17 years) Not on file 05/13/2023 Transportation Needs Answer Date Record ed READ ONLY Do you have troubl e getting a ride to medical visits or work? Never True 05/13/2023 Does your family have a hard time getting a ride to doctors visits? (Household - for ages 0-17 years) Not on file 05/13/2023 Has lack of transportation k ept you from medical appointments, meetings, work, or from getting things needed for daily living? Check all that apply. (Adult - for ages 18 years and over) Not on file 05/13/2023 Do you (or your family) have trouble finding or paying for a ride (transportation)? (Household - for ages 0-17 years) Not on file 05/13/2023 Housing Stability Answer Date Recorded Do you currently live in a s helter or have no steady place to sleep at night? No 05/13/2023 READ ONLY Do you think you a re at risk of becoming homeless? No 05/13/2023 Does your family worry about paying for your home or becoming homeless? (Household - for ages 0-17 years) Not on file 1 Are you homeless or worried that you might be in the future? (Adult - for ages 18 years and over) Not on file 12/31/202 3 Are you (or your family) karen eless or worried that you might be in the future? (Household - for ages 0-17 years) Not on file Food Insecurity Answer Date Recorded Do you need food for this week? No 05/13/2023 Are you able to get enough f ood for your family? (Household - for ages 0-17 years) Not on file 05/13/2023 Does your family need food t his week? (Household - for ages 0-17 years) Not on file 05/13/2023 Do you always have enough fo od for your family? (Household - for ages 0-17 years) Not on file 05/13/2023 Estimated Date of Delivery Comme nts Yes [...] Description 03/18/2024 1:30 PM EST Office Visit Gynecology/Obstetrics [facility] [address] [facility] [place] [address] Yomaira Keenan CRNP [address] [place] [place] [address] 03/31/2024 1:30 PM EST Office Visit Director Franchise Sales Obstetrics Maternal Medicine, [place] [address] [place] [address] Damaso Naranjo DO [address] [place] [address] 03/31/2024 1:30 PM EST Imaging Radiology [facility], [place] [address] [place] [address] 09/11/2024 12:00 PM EDT Office Visit Family Practice [address] [place] [address] Jerrod Abraham PA-C [address] [facility] [place] [address] Pending Results Name Type Priority Associated Diagnoses Date /Time ALBUMIN / CREATININE RATIO, URINE Lab Routine HTN, goal below 130/80 03/03/2024 7:36 AM EDT URINE PROTEIN, 24 HOUR Lab Routine Chronic hypertension affecting 03/03/2024 7:36 AM EDT Health Maintenance Due Date Last Done [...] Vaccine (FLU shot) Completed 02/18/2024, 03/22/2020, 04/02/2009 documented as of this encounter Goals Goal Patient Goal Type Associated Problems Recent Progress Patient-Stated? Author Reminders Care Plan OB Reminders No Mychart, Provider documented as of this encounter Medical Devices Not on filedocumented as of this encounter Visit Diagnoses Diagnosis HTN, goal below 130/80 Unspecified essential hypertension Chronic hypertension affecting documented in this encounter Additional Health Concerns Active Problems Noted Date Diagnosed Date OB Reminders 01/21/2024 documented as of this encounter Care Teams Deputy Commonwealth'S Attorney Relationship Specialty Start Date End Date Jerrod Abraham PA-C [address] [facility] [place] [phone] PCP - General Physician Table Games Supervisor 01/28/24 documented as of this encounter
--- OUTSIDE RECORDS SUMMARY | 2024-08-13 14:50 | External Medical Summary ---
Author Name Unknown Address Unknown Organization K01:[facility] [address] [place] [address] Laboratory Report Ordering Provider Test Date Status SURYA BARONE 03/03/2024 07:36:15 Final Normal: <150 mg/24 hours<br/ >High: 150-500 mg/24 hours
Very High: >500 mg/24 hours
Nephrotic: >3000 mg/24 hours Observation Date Value Abnormality Reference (Units ) Status Protein, 24-hr Urine 03/03/2024 07:36:15 <6 (mg/dL) Final Urine Volume 03/03/2024 07:36:15 1400 (mL) Final Protein, 24-hr Urine 03/03/2024 07:36:15 <84 <150 (mg/24 hours) Final Performing Location [facility] [place] [address] [place] [address]
--- OUTSIDE RECORDS SUMMARY | 2024-08-13 14:50 | External Medical Summary | Summary of Care ---
Author Name Unknown Organization [facility] Address [address] [facility] [place] [address] Phone [phone] Care Team Providers Care Subsurface Augmentee Elint Operator Name Role Phone Jerrod Abraham PA-C Primary Care Provide r Encounter Details Date Type Department Care Team (Late st Contact Info) Description 02/25/2024 Telephone Gynecology/Obstetrics [facility] [address] [facility] [place] [address] Alondra Pond PA-C [address] [facility] [place] [address] Allergies No known active allergiesdocumented as of this encounter (statuses as of 02/25/2024) Medications Medication Sig Dispensed Refills Start Date [...] as of this encounter (statuses as of 02/25/2024) Active Problems Problem Noted Date Diagnosed Date [...] assessment of proteinuria (24-hour urine protein or bctdlfh-ds-ytolcgurnl ratio) and CBC, serum AST/ALT/creatinine. If patient [...] Between 37 0/7 and 39 6/7 weeks Class 3 obesity 01/21/2024 Overview: Pregravid BMI 42.66 Baseline PEC labs Growth q4wks, weekly NST at 34 weeks MFM referral Body mass index (BMI) of 45.0 to [...] preeclamptic labs with CBC, serum AST/ALT/creatinine and dvsshcb-rk-xezscujnya ratio or 24-hour urine protein JONAH if not already done. Recommend anesthesia consult during the antepartum period. Estimated Date of Delivery Comme nts Yes 08/19/2024 Based on last me nstrual period of 11/13/2023 (Exact Date) documented as of this encounter (statuses as of 02/25/2024) Resolved Problems Problem Noted Date Diagnosed Date Resolved Date with 13 completed weeks gestation 02/12/2024 02/18/2024 Body mass index (BMI) of 120 % to less than 140% of 95th percentile for age in pediatric patient 01/09/2017 09/23/2018 Overview: ICD-10 update of inactive term Slow transit constipation 09/17/2015 Tongue tie 01/28/2015 01/09/2017 documented as of this encounter (statuses as of 02/25/2024) Immunizations Name Administration Dates Next Due COVID-19 [...] money to get more. Never true 05/13/2023 [place] Depression Scale Answer Date Recorded [place] Depression Scale Total 2 01/21/2024 The thought [...] 18 years and over) Not on file Are you (or your family) karen eless [...] Telephone Encounter - Ne Connell LPN - 02/25/2024 1:04 PM EDT Patient notified * Telephone Encounter - Laila Jaramillo LPN - 02/25/2024 12:55 PM EDT Called pt lm to return call * Telephone Encounter - Ne Connell LPN - 02/25/2024 12:20 PM EDT ----- Message from Alondra Pond sent at 02/25/2024 11:58 AM EDT ----- Covering for Patrica Hugo PA-C. Please inform patient her Qnatal resulted low risk. If she would like to know the gender, it is a boy! Thanks! Alondra Pond PA-C documented in this encounter Plan of Treatment Upcoming Encounters Date Type Department Care Team (Late st Contact Info) Description 03/18/2024 1:30 PM EST [facility] [address] [place] [address] Yomaira Keenan CRNP [address] [place] [address] 03/31/2024 1:30 PM EST Office Visit Research And Evaluation Manager Obstetrics [facility]aternal [facility], [place] [address] [place] [address] Damaso Naranjo, [address] [place] [address] 03/31/2024 1:30 PM EST Imaging Radiology [facility], [place] [address] [place] [address] 09/11/2024 12:00 PM EDT Office Visit Family Practice [address] [place] [address] Jerrod Abraham PA-C [address] [place] [address] Health Maintenance Due Date Last Done Comments Depression Screening 11/27/2020 11/28/2019 DTap/Tdap Vaccines (7 - Td or Tdap) 08/26/2022 08/26/2012, 10/19/2004, 07/23/2000, Additional history exists COVID-19 Vaccine ( season) 2024 04/01/2021, 05/21/2020, 05/03/2020 GFR 01/20/2025 01/21/2024, 04/14, 11/28/2019, Additional history exists Gonorrhea / Chlamydia Screen 01/20/202501/2024, 11/28/2019, 09/23/2018 Pap Smear 07/05/2026 07/05/2023, 10/25/2020 Hepatitis B Vaccine Completed 1999, 1999, 1999 Pneumococcal Vaccine: Pediatrics (0 to 5 Years) and At-Risk Patients (6 to 64 Years) Aged Out 12/19/2002 No longer eligible based on patient's age to complete this topic HPV (Gardasil) Vaccine Completed , 08/26/2012, 10/25/2011 MENINGOCOCCAL (MENACTRA/MENVEO) Completed 12/09/2015, 10/25/2011 Influenza Vaccine (FLU shot) Completed 11/2023, 03/22/2020, 04/02/2009 documented as of this encounter Goals Goal Patient Goal Type Associated Problems Recent Progress Patient-Stated? Author Reminders Care Plan OB Reminders No Mychart, Provider documented as of this encounter Medical Devices Not on filedocumented as of this encounter Additional Health Concerns Active Problems Noted Date Diagnosed Date OB Reminders 01/21/2024 documented as of this encounter Care Teams Subsurface Augmentee Elint Operator Relationship Specialty Start Date End Date Jerrod Abraham PA-C [address] [facility] [place] [address] PCP - General Physician Security System Sales Consultant 01/28/24 documented as of this encounter
--- OUTSIDE RECORDS SUMMARY | 2024-08-13 14:50 | External Medical Summary | Summary of Care ---
Author Name Unknown Organization [facility] Address [address] [facility] [address] Phone [phone] Care Team Providers Care Practice Management Consultant Name Role Phone Jerrod Abraham PA-C Primary Care Provide r Reason for Visit * Reason Comments Outpatient Testing Encounter Details Date Type Department Care Team (Late st Contact Info) Description 03/03/2024 7:40 AM EDT [facility] [address] [facility] [place] [phone] [place], Lab [facility] [address] [facility] [place] [phone] HTN, goal below 130/80; Chronic hypertension affecting Allergies No known active allergiesdocumented as of this encounter (statuses as of 03/13/2024) Medications Medication Sig Dispensed Refills Start Date [...] as of this encounter (statuses as of 03/13/2024) Active Problems Problem Noted Date Diagnosed Date [...] assessment of proteinuria (24-hour urine protein or ebkeylj-ez-amkcdtefui ratio) and CBC, serum AST/ALT/creatinine. If patient [...] preeclamptic labs with CBC, serum AST/ALT/creatinine and jhaycwb-il-oeqzunldcf ratio or 24-hour urine protein JONAH if not already done. Recommend anesthesia consult during the antepartum period. Estimated Date of Delivery Comme nts Yes 08/19/2024 Based on last me nstrual period of 11/13/2023 (Exact Date) documented as of this encounter (statuses as of 03/13/2024) Resolved Problems Problem Noted Date Diagnosed Date [...] as of this encounter (statuses as of 03/13/2024) Immunizations Name Administration Dates Next Due COVID-19 [...] money to get more. Never true 03/04/2024 [place] Depression Scale Answer Date Recorded [place] Depression Scale Total 2 01/21/2024 The thought [...] 03/18/2024 1:30 PM EST Office Visit Gynecology/Obstetrics [facility] [address] [facility] [place] [address] Yomaira Keenan CRNP [address] [place] [address] 03/31/2024 1:30 PM EST Office Visit Sport Internship Obstetrics Maternal Medicine, [place] [address] [place] [address] Damaso Naranjo DO [address] [place] [address] 03/31/2024 1:30 PM EST Imaging Radiology [facility] [address] [place] [address] 09/11/2024 12:00 PM EDT Office Visit Family Practice [address] [place] [address] Jerrod Abraham PA-C [address] [place] [address] Health Maintenance Due Date Last Done Comments [...] Procedure Name Priority Date/Time Associated Diagnosis Comments URINE PROTEIN, 24 HOUR Routine 03/03/2024 7:36 AM EDT Chronic hypertension affecting ALBUMIN / CREATININE RATIO, URINE Routine 03/03/2024 7:36 AM EDT HTN, goal below 130/80 documented in this encounter Results * URINE PROTEIN, 24 HOUR (03/03/2024 7:36 AM EDT) Protein, Urine <6 mg/dL 03/04/2024 12:48 AM EDT LAB[facility] Urine Volume 1,400 mL 03/04/2024 12:48 AM EDT LAB[facility]ATORY [facility] Protein, 24 Hour Urine <84 <150 mg/24 hours 03/04/2024 12:48 AM EDT LAB[facility]ORY [facility] Urine Urine specimen / Unknown Non-blood Collection / Unknown 03/03/2024 7:36 AM EDT 03/03/2024 7:36 AM EDT Narrative LAB[facility]ORY [facility] - 03/04/2024 12:48 AM EDT Normal: <150 mg/24 hours High: 150-500 mg/24 hours Very High: >500 mg/24 hours Nephrotic: >3000 mg/24 hours Patrica Hugo PA-C LAB URINE ORDERABLES Performing Organization Address [facility] de Phone Number LAB[facility]ATORY [place] [address] [place] [address] * ALBUMIN / CREATININE RATIO, URINE (03/03/2024 7:36 AM EDT) Albumin, Random Urine <1.20 mg/dL 03/04/2024 12:50 AM EDT LAB[facility]ORY [facility] Creatinine, Random Urine 97 mg/dL 03/04/2024 12:50 AM EDT LAB[facility]ORY [facility] Albumin / Creatinine Ratio, Urine <12 <30 mg/g Creat 03/04/2024 12:50 AM EDT [facility]ORY [facility] Urine Urine specimen obtained by clean catch procedure / Unknown Non-blood Collection / Unknown 03/03/2024 7:36 AM EDT 03/03/2024 7:36 AM EDT Narrative [facility] - 03/04/2024 12:50 AM EDT Normal: <30 mg/g creatinine High: 30-300 mg/g creatinine Very High: >300 mg/g creatinine Nephrotic: >2200 mg/g creatinine Kimberley JIMENEZ LAB URINE ORDE RABHERLINDA Performing Organization Address [facility] de Phone Number [facility] [address] [place] [address] documented in this encounter Visit Diagnoses Diagnosis HTN, goal below 130/80 Unspecified essential hypertension Chronic hypertension affecting documented in this encounter Additional Health Concerns Active Problems Noted Date Diagnosed Date OB Reminders 01/21/2024 documented as of this encounter Care Teams Practice Management Consultant Relationship Specialty Start Date End Date Jerrod Abraham PA-C [facility] [facility] [place] [address] PCP - General Physician Molding Fitter 01/28/24 documented as of this encounter
--- OUTSIDE RECORDS SUMMARY | 2024-08-13 14:50 | External Medical Summary | Summary of Care ---
Author Name Unknown Organization [facility] Address [address] [facility] [place] [address] Phone [phone] Care Team Providers Care Counter Tender Name Role Phone Jerrod Abraham PA-C Primary Care Provide r Reason for Visit * Reason Comments Return Visit Encounter Details Date Type Department Care Team (Late st Contact Info) Description 04/15/2024 2:15 PM EST Office Visit Gynecology/Obstetric s [facility] [address] [place] [address] Yomaira Keenan CRNP [address] [place] [address] Supervision of high risk in second trimester*; Obesity affecting , antepartum, unspecified trimester; Chronic hypertension affecting Allergies No known active allergiesdocumented as of this encounter (statuses as of 04/15/2024) Medications 28-0.8 MG Oral Tablet Take by [...] as of this encounter (statuses as of 04/15/2024) Active Problems Problem Noted Date Diagnosed Date [...] 10/25/20 110/70 04/21/20 116/82 Assessment & Plan (02/12/2024 11:11 AM EDT): Considerations: Women with chronic hypertension during are at significantly increased risk for morbidity. Signs and symptoms of superimposed pre-eclampsia were reviewed; instructed patient to contact primary OB care provider if these symptoms occur. Recommendations: Obtain baseline lab work JONAH (if not already done) with assessment of proteinuria (24-hour urine protein or jdizeix-sm-bydjnsaycf ratio) and CBC, serum AST/ALT/creatinine. If patient [...] preeclamptic labs with CBC, serum AST/ALT/creatinine and sngishy-ys-tekpqdjtog ratio or 24-hour urine protein JONAH if not already done. Recommend anesthesia consult during the antepartum period. Estimated Date of Delivery Comme nts Yes 08/19/2024 Based on last me nstrual period of 11/13/2023 (Exact Date) documented as of this encounter (statuses as of 04/15/2024) Resolved Problems Problem Noted Date Diagnosed Date [...] as of this encounter (statuses as of 04/15/2024) Immunizations Name Administration Dates Next Due COVID-19 [...] money to get more. 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 Following with M for chronic HTN, is on meds. Baby is active. Denies contractions, bleeding, LOF. BARBARA Wallis * Laura Sommers CMA - 04/15/2024 2:23 PM EST 22w0d Denies any concerns documented in this encounter Plan of Treatment Upcoming Encounters Date Type Department Care Team (Late st Contact Info) Description 04/29/2024 3:15 PM EST Office Visit Adoption Counselor Obstetrics Maternal Medicine, [place] [address] [place] [address] Gloria Higgins DO [address] [place] [address] 04/29/2024 3:15 PM EST Imaging Radiology [facility] [place] [address] [place] [address] 05/20/2024 2:15 PM EST Office Visit Gynecology/Obstetrics [facility] [address] [place] [address] Yomaira Keenan CRNP [address] [place] [address] 05/29/2024 8:00 AM EST Imaging Maternal Medicine Imaging, [place] [address] [place] [phone] 06/26/2024 8:00 AM EST Imaging Maternal Medicine Imaging, [place] [address] [place] [phone] 09/11/2024 12:00 PM EDT Office Visit Family [facility] [address] [place] [address] Jerrod Abraham PA-C [address] [place] [address] Scheduled Orders Name Type Priority Associated Diagnoses Orde r Schedule URINALYSIS OBSTETRICS, POINT OF CARE Point of Care Testing - Unsolicited Results Routine Obesity affecting , antepartum, unspecified trimester Chronic hypertension affecting Ordered: 04/15/2024 Health Maintenance Due Date Last Done Comments [...] affecting 19 weeks gestation of state, incidental Supervision of high risk in second trimester- Primary Unspecified high-risk Obesity affecting , antepartum, unspecified trimester Chronic hypertension affecting documented in this encounter Additional Health Concerns Active Problems Noted Date Diagnosed Date OB Reminders 01/21/2024 documented as of this encounter Care Teams Counter Tender Relationship Specialty Start Date End Date Jerrod Abraham PA-C [address] [facility] [place] [address] PCP - General Physician Dipper Fish 01/28/24 documented as of this encounter
--- OUTSIDE RECORDS SUMMARY | 2024-08-13 14:50 | External Medical Summary | Summary of Care ---
Author Name Unknown Organization [facility] Address [address] [facility] [place] [address] Phone [phone] Care Team Providers Care Roving Sizer Name Role Phone Jerrod Abraham PA-C Primary Care Provide r Reason for Visit * Reason Comments Return Visit Encounter Details Date Type Department Care Team (Late st Contact Info) Description 04/15/2024 2:15 PM EST Office Visit Gynecology/Obstetric s BaptisteTatiarmand Randall [address] [place] [address] Yomaira Keenan CRNP [address] [place] [address] Supervision of high risk in second trimester*; [...] assessment of proteinuria (24-hour urine protein or pogahpk-iw-hiwhzjtuvu ratio) and CBC, serum AST/ALT/creatinine. If patient [...] preeclamptic labs with CBC, serum AST/ALT/creatinine and grfkgtd-nv-xtcjnbphpu ratio or 24-hour urine protein JONAH if [...] money to get more. 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 [address] [place] [address] Yomaira Keenan CRNP [address] [place] [address] 05/29/2024 8:00 AM EST Imaging Maternal Medicine Imaging, Yamile[place] Lees [address] [place] [address] 06/26/2024 8:00 AM EST Imaging Maternal Medicine Imaging, [place] Le[place] [address] [place] [address] 09/11/2024 12:00 PM EDT Office Visit Family [facility] Julio Cesar Batista [address] [place] [address] Jerrod Abraham PA-C [address] [place] [address] Scheduled Orders Name Type Priority Associated Diagnoses [...] documented as of this encounter Care Teams Roving Sizer Relationship Specialty Start Date End Date Jerrod Abraham PA-C [address] [facility] [place] [address] PCP - General Physician Blender 01/28/24 documented as of this encounter
--- OUTSIDE RECORDS SUMMARY | 2024-08-13 14:50 | External Medical Summary ---
Author Name Unknown Address Unknown Organization K01:[facility]ATORY [facility] - [address] [place] [address] Laboratory Report Ordering Provider Test Date Status BHAVNA PIZARRO 03/03/2024 07:36:15 Final Normal: <30 mg/g creatinine< br/>High: 30-300 mg/g creatinine
Very High: >300 mg/g creatinine
Nephrotic: >2200 mg/g creatinine Observation Date Value Abnormality Reference (Units ) Status Albumin, Urine 03/03/2024 07:36:15 <1.20 (mg/dL) Final Creatinine, Urine 03/03/2024 07:36:15 97 (mg/dL) Final Albumin/Creatinine [Mass Ratio] in Urine 03/03/2024 07:36:15 <12 <30 (mg/g Creat) Final Performing Location [facility] - [address] [place] [address]
--- OUTSIDE RECORDS SUMMARY | 2024-08-13 14:50 | External Medical Summary | Summary of Care ---
Author Name Unknown Organization [facility] Address [address] [facility] [place] [address] Phone [phone] Care Team Providers Care Automotive General Manager Name Role Phone Jerrod Abraham PA-C Primary Care Provide r Reason for Visit * Reason Comments Return Visit Encounter Details Date Type Department Care Team (Late st Contact Info) Description 03/18/2024 1:30 PM EST Office Visit Gynecology/Obstetric s Baptistefarrukh Randall [address] [place] [address] Yomaira Keenan CRNP [address] [place] [address] Supervision of high risk in second trimester*; [...] assessment of proteinuria (24-hour urine protein or vrbkrri-pz-dzqgproabx ratio) and CBC, serum AST/ALT/creatinine. If patient [...] preeclamptic labs with CBC, serum AST/ALT/creatinine and zhflkyd-ny-rvufclycto ratio or 24-hour urine protein JONAH if [...] money to get more. Never true 03/04/2024 [place] Depression Scale Answer Date Recorded [place] Depression Scale Total 2 01/21/2024 The [...] anatomy u/s with MFM. BARBARA Wallis * Laura Sommers CMA - 03/18/2024 1:20 PM EST 18w0d Denies any concerns documented in this encounter Plan of Treatment Upcoming Encounters Date Type Department Care Team (Late st Contact Info) Description 03/31/2024 1:30 PM EST Office Visit Cement Car Dumper Obstetrics Maternal Medicine, [place] [address] [place] [address] Damaso Naranjo [address] [place] [address] 03/31/2024 1:30 PM EST Imaging Radiology [facility], [place] [address] [place] [address] 04/15/2024 2:15 PM EST Office Visit Gynecology/Obstetrics [facility] [address] [facility] [place] [address] Yomaira Keenan CRNP [address] [place] [address] 09/11/2024 12:00 PM EDT Office Visit Family Practice [facility] [place], [place] [address] [place] [address] Jerrod Abraham PA-C [address] [place] [address] Health Maintenance Due Date Last Done Comments [...] documented as of this encounter Care Teams Automotive General Manager Relationship Specialty Start Date End Date Jerrod Abraham PA-C [address] [facility] [place] [address] PCP - General Physician Telephone Solicitor Supervisor 01/28/24 documented as of this encounter
--- OUTSIDE RECORDS SUMMARY | 2024-08-13 14:50 | External Medical Summary | Summary of Care ---
Author Name Unknown Organization [facility] Address [address] [place] [address] Phone [phone] Care Team Providers Care Past Due Accounts Clerk Name Role Phone Jerrod Abraham PA-C Primary Care Provide r Reason for Visit * Reason Comments Ultrasound Encounter Details Date Type Department Care Team (Late st Contact Info) Description 03/31/2024 1:30 PM EST Office Visit Manufacturer'S Representative Obstetrics Maternal Medicine, [place] [address] [place] [address] Damaso Naranjo, [address] [place], [place] [id number] Obesity affecting , antepartum, unspecified trimester*; Body mass index (BMI) of 45.0 to 49.9 in adult (HCC); Chronic hypertension affecting ; 19 weeks gestation of Allergies No known active allergiesdocumented as of this encounter (statuses as of 03/31/2024) Medications 28-0.8 MG Oral Tablet Take by [...] as of this encounter (statuses as of 03/31/2024) Active Problems Problem Noted Date Diagnosed Date [...] assessment of proteinuria (24-hour urine protein or ywasfxj-rj-gftvmowvtp ratio) and CBC, serum AST/ALT/creatinine. If patient [...] preeclamptic labs with CBC, serum AST/ALT/creatinine and lwopyhx-jr-ubbrimkyrr ratio or 24-hour urine protein JONAH if not already done. Recommend anesthesia consult during the antepartum period. Estimated Date of Delivery Comme nts Yes 08/19/2024 Based on last me nstrual period of 11/13/2023 (Exact Date) documented as of this encounter (statuses as of 03/31/2024) Resolved Problems Problem Noted Date Diagnosed Date [...] as of this encounter (statuses as of 03/31/2024) Immunizations Name Administration Dates Next Due COVID-19 [...] money to get more. 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 PHYSICAL EXAM: BP 137/69 | LMP 11/13/2023 (Exact Date) General: pleasant, alert and oriented, no acute distress She is being seen today by Maternal- Medicine for the following reasons: Problem List Items Addressed This Visit Body mass index (BMI) of 45.0 to 49.9 in adult (HCC) (Chronic) Obesity affecting , antepartum, unspecified trimester - Primary She presents for a anatomy survey secondary [...] identify all anomalies, but it is reassuring thatno anomalies were seen today. I reviewed images from her 01/21/24 early ultrasound. The right ovary was visualized at that time and did not appear to have an associated echogenic area, suggesting that the image today may be an image artifact or surrounding structure. We will plan to reevaluate at future exams. Chronic hypertension affecting We reviewed today's ultrasound findings. (For full report, please refer to ultrasound report provided separately). Ms. Moreau's questions were answered to her satisfaction. RECOMMENDATIONS: Recommend surveillance starting at 32 weeks secondary to CHTN on medications. Recommend follow up ultrasound with MFM in 4 weeks for growth. Thank you for allowing us to participate in the care of this patient. Please call with any questions. Damaso Naranjo DO 03/31/2024 3:21 PM documented in this encounter Miscellaneous Notes * Assessment & Plan Note - Damaso Naranjo DO - 03/31/2024 2:55 PM EST Associated Problem(s): Obesity affecting , antepartum, unspecified trimester She presents for a anatomy survey secondary [...] identify all anomalies, but it is reassuring thatno anomalies were seen today. I reviewed images from her 01/21/24 early ultrasound. The right ovary was visualized at that time and did not appear to have an associated echogenic area, suggesting that the image today may be an image artifact or surrounding structure. We will plan to reevaluate at future exams. documented in this encounter Plan of Treatment Upcoming Encounters Date Type Department Care Team (Late st Contact Info) Description 04/15/2024 2:15 PM EST Office Visit Gynecology/Obstetrics Sondra Randall [address] [place] [address] Yomaira Keenan CRNP [address] [facility] [place] [address] 04/29/2024 3:15 PM EST Office Visit Manufacturer'S Representative Obstetrics Maternal Medicine, [place] [address] [place] [address] [facility] [address] [place] [address] 04/29/2024 3:15 PM EST Imaging Radiology [facility], [place] [address] [place] [address] 05/29/2024 8:00 AM EST Imaging Maternal Medicine Imaging, Yamileth Randall [facility] [place] [address] 06/26/2024 8:00 AM EST Imaging Maternal Medicine Imaging, Yamileth Randall [facility] [place] [address] 09/11/2024 12:00 PM EDT Office Visit Family Practice [address] [place] [address] Jerrod Abraham PA-C [address] [place] [address] Scheduled Orders Name Type Priority Associated Diagnoses Orde r Schedule MFM US PREG FOLLOW UP EACH FETUS Medical Imaging Routine Obesity affecting , antepartum, unspecified trimester Body mass index (BMI) of 45.0 to 49.9 in adult (HCC) Chronic hypertension affecting 6 Occurrences starting 03/31/2024 until 09/28/2024 Health Maintenance Due Date Last Done Comments [...] affecting 19 weeks gestation of state, incidental documented in this encounter Additional Health Concerns Active Problems Noted Date Diagnosed Date OB Reminders 01/21/2024 documented as of this encounter Care Teams Past Due Accounts Clerk Relationship Specialty Start Date End Date Jerrod Abraham PA-C [address] [facility] [place] [address] PCP - General Physician Cad Operator 01/28/24 documented as of this encounter"
--- OUTSIDE RECORDS SUMMARY | 2024-08-13 14:51 | External Medical Summary | Summary of Care ---
Author Name Unknown Organization [facility] Address [address] [facility] [place] [address] Phone [phone] Care Team Providers Care Company Manager Name Role Phone Jerrod Abraham PA-C Primary Care Provide r Encounter Details Date Type Department Care Team (Late st Contact Info) Description 02/13/2024 Telephone Gynecology/Obstetrics [facility] [address] [place] [address] Patrica Hugo PA-C [address] [place] [address] Allergies No known active allergiesdocumented as of this encounter (statuses as of 02/19/2024) Medications Medication Sig Dispensed Refills Start Date [...] as of this encounter (statuses as of 02/19/2024) Active Problems Problem Noted Date Diagnosed Date [...] assessment of proteinuria (24-hour urine protein or wykchsr-jt-uaxpmhniuh ratio) and CBC, serum AST/ALT/creatinine. If patient [...] Results Component Value Date/Time HEMOGLOBIN A1C - [facility] 5.2 06/05/2023 09:00 AM Last Assessment & [...] preeclamptic labs with CBC, serum AST/ALT/creatinine and czcimwu-wa-ckbpgihska ratio or 24-hour urine protein JONAH if not already done. Recommend anesthesia consult during the antepartum period. Estimated Date of Delivery Comme nts Yes 08/19/2024 Based on last me nstrual period of 11/13/2023 (Exact Date) documented as of this encounter (statuses as of 02/19/2024) Resolved Problems Problem Noted Date Diagnosed Date Resolved Date with 13 completed weeks gestation 02/12/2024 02/18/2024 Body mass index (BMI) of 120 % to less than 140% of 95th percentile for age in pediatric patient 01/09/2017 09/23/2018 Overview: ICD-10 update of inactive term Slow transit constipation 09/17/2015 Tongue tie 01/28/2015 01/09/2017 documented as of this encounter (statuses as of 02/19/2024) Immunizations Name Administration Dates Next Due COVID-19 mRNA, LNP-s, No Pre serve, 2-Dose Series ([employer] 04/01/2021,05/21/2020,05/03/2020 DTaP Dipth/Tet/Acell Pertussis (Infanrix), Peds 10/19/2004,07/23/2000,1999,04/27 [...] PF, Adjuvanted, 65+ Yrs, IM (FLUAD) 03/22/2020 TDAP, Age 7 and older, IM (Adacel) [...] money to get more. Never true 05/13/2023 [place] Depression Scale Answer Date Recorded [place] Depression Scale Total 2 01/21/2024 The thought [...] encounter Miscellaneous Notes * Telephone Encounter - Thalia Kong LPN - 02/13/2024 2:32 PM EDT left message for patient to call office * Telephone Encounter - Patrica Hugo PA-C - 02/13/2024 2:12 PM EDT MFM recommending 24 hour urine collection. I placed order for her to cloth picker materials and instructions at lab. They also recommended starting daily ASA 81 mg at 13 weeks so now. Please let her know. Patrica Hugo PA-C documented in this encounter Plan of Treatment Upcoming Encounters Date Type Department Care Team (Late st Contact Info) Description 03/18/2024 1:30 PM EST Office Visit Gynecology/Obstetrics Sondra Randall [address] [place] [address] Yomaira Keenan CRNP [address] [place] [address] 03/31/2024 1:30 PM EST Office Visit Branch Service Representative Obstetrics Maternal Medicine, [place] [address] [place] [address] Damaso Naranjo, DO [address] [place] [address] 03/31/2024 1:30 PM EST [facility] [place] [address] [place] [address] 09/11/2024 12:00 PM EDT Office Visit Family Practice [place] Julio Cesar Batista [address] [place] [address] Jerrod Abraham PA-C [address] [place], [place] [phone] Scheduled Orders Name Type Priority Associated Diagnoses Orde r Schedule URINE PROTEIN, 24 HOUR Lab Routine Chronic hypertension affecting Expected: 02/13/2024, Expires: 02/12/2025 Health Maintenance Due Date Last Done Comments [...] as of this encounter Visit Diagnoses Diagnosis Chronic hypertension affecting - Primary documented in this encounter Additional Health Concerns Active Problems Noted Date Diagnosed Date OB Reminders 01/21/2024 documented as of this encounter Care Teams Company Manager Relationship Specialty Start Date End Date Jerrod Abraham PA-C [address] [facility] [place] [address] PCP - General Physician Farebox Repairer 01/28/24 documented as of this encounter
--- OUTSIDE RECORDS SUMMARY | 2024-08-13 14:51 | External Medical Summary | Summary of Care ---
Author Name Unknown Organization [facility] Address [address] [facility] [place] [address] Phone [phone] Care Team Providers Care Cream Maker Name Role Phone Jerrod Abraham PA-C Primary Care Provide r Encounter Details Date Type Department Care Team (Late st Contact Info) Description 02/13/2024 Telephone Gynecology/Obstetrics [facility] [address] [place] [address] Patrica Hugo PA-C [address] [place] [address] Allergies No known active allergiesdocumented as of [...] assessment of proteinuria (24-hour urine protein or opankdv-wl-ffwilkctes ratio) and CBC, serum AST/ALT/creatinine. If patient [...] Results Component Value Date/Time HEMOGLOBIN A1C - [facility] 5.2 06/05/2023 09:00 AM Last Assessment & [...] preeclamptic labs with CBC, serum AST/ALT/creatinine and exmwhqc-of-wsjbvognpx ratio or 24-hour urine protein JONAH if [...] mRNA, LNP-s, No Pre serve, 2-Dose Series ([employer]) 04/01/2021,05/21/2020,05/03/2020 DTaP Dipth/Tet/Acell Pertussis (Infanrix), Peds 10/19/2004,07/23/2000,1999,07/04,1999 [...] money to get more. Never true 05/13/2023 [place] Depression Scale Answer Date Recorded [place] Depression Scale Total 2 01/21/2024 The thought [...] encounter Miscellaneous Notes * Telephone Encounter - Laila Jaramillo LPN - 02/25/2024 12:57 PM EDT Called pt lm to return call * Telephone Encounter - Thalia Kong LPN - 02/19/2024 3:56 PM EDT left message for patient to call office * Telephone Encounter - Thalia Kong LPN - 02/13/2024 2:32 PM EDT left message for patient to call office * Telephone Encounter - Patrica Hugo PA-C - 02/13/2024 2:12 PM EDT M recommending 24 hour urine collection. I placed order for her to poultry picker materials and instructions at lab. They also recommended starting daily ASA 81 mg at 13 weeks so now. Please let her know. Patrica Hugo PA-C documented in this encounter Plan of Treatment Upcoming Encounters Date Type Department Care Team (Late st Contact Info) Description 03/18/2024 1:30 PM EST Office Visit Gynecology/Obstetrics [facility] [address] [facility] [place] [address] Yomaira Keenan CRNP [address] [place] [address] 03/31/2024 1:30 PM EST Office Visit Shank Breaker Obstetrics Maternal Medicine, [place] [address] [place] [address] Damaso Naranjo, [address] [place] [address] 03/31/2024 1:30 PM EST Imaging Radiology [facility] [place] [address] [place] [address] 09/11/2024 12:00 PM EDT Office Visit Family Practice [place] Julio Cesar Batista [address] [place] [address] Jerrod Abraham PA-C [address] [place] [address] Scheduled Orders Name Type Priority Associated Diagnoses [...] documented as of this encounter Care Teams Cream Maker Relationship Specialty Start Date End Date Jerrod Abraham PA-C [address] [facility] [place] [address] PCP - General Physician Horser Up 01/28/24 documented as of this encounter
--- OUTSIDE RECORDS SUMMARY | 2024-08-13 14:51 | External Medical Summary ---
Author Name Unknown Address Unknown Organization K0G:LABORATORY [facility] - [address] [place] [address] Laboratory Report Ordering Provider Test Date Status SURYA BARONE 02/18/2024 14:10:31 Final Observation Date Value Abnormality Reference (Units ) Status Glucose [Moles/volume] in Serum or Plasma --1 hour post 50 g glucose PO 02/18/2024 14:10:31 120 70-129 (mg/dL) Final Performing Location [facility]ORY [facility] - [address] [place] [address]
--- OUTSIDE RECORDS SUMMARY | 2024-08-13 14:51 | External Medical Summary | Summary of Care ---
Author Name Unknown Organization [facility] Address [address] [facility] [place] [address] Phone [phone] Care Team Providers Care Wheel Blocker Name Role Phone Jerrod Abraham PA-C Primary Care Provide r Reason for Visit * Reason Comments Outpatient Testing Encounter Details Date Type Department Care Team (Late st Contact Info) Description 02/18/2024 1:50 PM EDT Laboratory [facility], [facility] [phone] [facility] [address] [place] [address] Arrived Allergies No known active allergiesdocumented as of this encounter (statuses as of 02/18/2024) Medications Medication Sig Dispensed Refills Start Date [...] as of this encounter (statuses as of 02/18/2024) Active Problems Problem Noted Date Diagnosed Date [...] assessment of proteinuria (24-hour urine protein or mratfwv-dc-lkzbcfpgyg ratio) and CBC, serum AST/ALT/creatinine. If patient [...] Results Component Value Date/Time HEMOGLOBIN A1C - [facility] 5.2 06/05/2023 09:00 AM Last Assessment & [...] preeclamptic labs with CBC, serum AST/ALT/creatinine and kgkmesd-mw-uiffzimwdw ratio or 24-hour urine protein JONAH if not already done. Recommend anesthesia consult during the antepartum period. Estimated Date of Delivery Comme nts Yes 08/19/2024 Based on last me nstrual period of 11/13/2023 (Exact Date) documented as of this encounter (statuses as of 02/18/2024) Resolved Problems Problem Noted Date Diagnosed Date Resolved Date with 13 completed weeks gestation 02/12/2024 02/18/2024 Body mass index (BMI) of 120 % to less than 140% of 95th percentile for age in pediatric patient 01/09/2017 09/23/2018 Overview: ICD-10 update of inactive term Slow transit constipation 09/17/2015 Tongue tie 01/28/2015 01/09/2017 documented as of this encounter (statuses as of 02/18/2024) Immunizations Name Administration Dates Next Due COVID-19 [...] money to get more. Never true 05/13/2023 [place] Depression Scale Answer Date Recorded [place] Depression Scale Total 2 01/21/2024 The thought [...] 03/18/2024 1:30 PM EST Office Visit Gynecology/Obstetrics [facility] [address] [facility] [place] [address] Yomaira Keenan CRNP [address] [place] [address] 03/31/2024 1:30 PM EST Office Visit Outside Food Server Obstetrics Maternal Medicine, [place] [address] [place] [address] Damaso Naranjo DO [address] [place] [address] 03/31/2024 1:30 PM EST Imaging Radiology [facility], [place] [address] [place] [address] 09/11/2024 12:00 PM EDT Office Visit Family Practice [address] [place] [phone] Jerrod Abraham PA-C [address] [place] [address] Health Maintenance Due Date Last Done Comments [...] documented as of this encounter Care Teams Wheel Blocker Relationship Specialty Start Date End Date Jerrod Abraham PA-C [address] [place] [address] PCP - General Physician Biomedical Technician 01/28/24 documented as of this encounter
--- OUTSIDE RECORDS SUMMARY | 2024-08-13 14:51 | External Medical Summary ---
Author Name Unknown Address Unknown Organization : Laboratory Report Ordering Provider Test Date Status SURYA BARONE 02/18/2024 14:10:31 Final Observation Date Value Abnormality Reference (Units ) Status NUMBER OF FETUSES? 02/18/2024 14:10:31 1 Final ADVANCED MATERNAL AGE? 02/18/2024 14:10:31 NO Final ABNORMAL KATHLEEN? 02/18/2024 14:10:31 NO Final ABNORMAL US? 02/18/2024 14:10:31 NOT GIVEN Final PERSONAL/FAM HISTORY? 02/18/2024 14:10:31 NOT GIVEN Final INTERPRETATION 02/18/2024 14:10:31 SEE BELOW Final This specimen showed an expe cted representation of
chromosome 21, 18, and 13 material. Results were
not analyzed or reported for microdeletions. See
'Limitations' below. TRISOMY 21 (T21) 02/18/2024 14:10:31 Negative Final TRISOMY 18 (T18) 02/18/2024 14:10:31 Negative Final TRISOMY 13 (T13) 02/18/2024 14:10:31 Negative Final Y CHROMOSOME 02/18/2024 14:10:31 Detected Final Y CHR. INTERPRETATION 02/18/2024 14:10:31 SEE BELOW Final Consistent with a male fetus . SEX CHROMOSOME 02/18/2024 14:10:31 No aneuploidy Final SEX CHROMOSOME INTERP 02/18/2024 14:10:31 SEE BELOW Final No apparent abnormality was detected. See
'Limitations' below. MICRODELETION 02/18/2024 14:10:31 Opted Out Final MICRODELETION INTERP 02/18/2024 14:10:31 SEE BELOW Final Results were not analyzed or reported for
microdeletions. GESTATIONAL AGE (IN WEEKS) 02/18/2024 14:10:31 13 Final GESTATIONAL AGE (IN DAYS) 02/18/2024 14:10:31 6 Final FRACTION 02/18/2024 14:10:31 10.30% Final LABORATORY COMMENTS 02/18/2024 14:10:31 SEE BELOW Final Laboratory testing supervise d and results
monitored by Surya Youssef, Ph.D., FAC, [facility],
[facility]. LIMITATIONS 02/18/2024 14:10:31 SEE BELOW Final QNatal(R) Advanced is a cell -free DNA screening
test that screens for increased risk of certain
chromosomal abnormalities that may cause
defects, including Trisomy 21 (Down
syndrome), Trisomy 18, Trisomy 13, and certain sex
chromosome abnormalities (i.e., 45,X, 47,XXY,
47,XXX, and 47,XYY), as well as sex. In
addition, if selected as an option, QNatal(R)
Advanced can screen for certain microdeletions
(i.e., 22q, 5p, 1p36, 15q, 11q, 8q, and 4p) that
may cause defects. This test does not assess
the risk of abnormalities such as neural
tube defects or ventral wall defects and should
not be considered in isolation from other clinical
findings and laboratory test results.
QNatal(R) Advanced has been validated in tripathi
pregnancies for the trisomies and sex chromosome
abnormalities listed above, as well as for
microdeletions, and for the determination of
sex. Sex chromosome aneuploidy analysis is only
performed in tripathi pregnancies. This screening
test has also been validated in twin pregnancies
for the trisomies listed above and for
microdeletions, but not for the sex chromosome
abnormalities due to limited data. This screening
test has not been validated in higher order
pregnancies (more than two) because limited data
is available. Sex chromosomal aneuploidy results
issued for pregnancies confirmed to be of multiple
gestations are not valid and should be
disregarded.
Microdeletion screening is limited to the
specified microdeletion regions (see
'Methodology'). The Y chromosome is analyzed for
the determination of sex. The sensitivity
and specificity of sex determination
analysis may be less than that of the Trisomy 21,
18, and 13 analysis and this determination can be
confounded by vanishing twin syndrome in
pregnancies that were originally multiple
gestation pregnancies. It should be noted that
QNatal(R) Advanced is a quantitative analysis of
maternal and placental cfDNA. As a result, the
accuracy of screening results may be affected by
the presence of chromosome abnormalities or
microdeletions that are maternal or confined
placental in origin. SPECIFICATIONS 02/18/2024 14:10:31 SEE BELOW Final Sensitivity Specificity
T21 >99.9% >99.9%
T18 >99.9% >99.9%
T13 >99.9% >99.9%
Accuracy
Y >99.9%
Performance of the QNatal Advanced
laboratory-developed test (LDT) has been
determined based on internal analytical
assessment. METHODOLOGY 02/18/2024 14:10:31 SEE BELOW Final Circulating cell-free (cf) D NA was isolated from
plasma followed by detection on a massively
parallel sequencing platform. Bioinformatic
analysis was performed to determine the
representation of chromosomes 21, 18, 13, X and Y
in circulating cell-free DNA. The representation
of sequences from the critical regions involved in
1p36 microdeletion syndrome (1p36),
Ge-Hirschhorn syndrome (4p), Cri-du-chat
syndrome (5p), Duncan-Giedion syndrome (8q),
Srinivas syndrome (11q), Prader Willi
syndrome/Angelman syndrome (15q), and DiGeorge
syndrome (22q) is evaluated for the detection of
microdeletions if requested. Performance
characteristics refer to the analytical
performance of this screening test. This screening
test is performed pursuant to a license agreement
with [employer].
QNatal Advanced is a laboratory developed test
that has been developed and validated, pursuant to
the Clinical Laboratory Improvements Amendments of
1988 (CLIA), and as such it has not been reviewed
by FDA.
Test performed by [facility]
[address],
[place] [address]

Exhaust Emissions Inspector: Anabel Roe MD,PHD,DONNA
Test Reported by [facility],
[facility],
[address] [place], [place]
Kan Plascencia M.D., Ph.D., Director of Laboratories
, CLIA [id number] Performing Location
--- OUTSIDE RECORDS SUMMARY | 2024-08-13 14:51 | External Medical Summary | Summary of Care ---
Author Name Unknown Organization [facility] Address [address] [facility] [address] Phone [phone] Care Team Providers Care Mult Au Matic Operator Name Role Phone Jerrod Abraham PA-C Primary Care Provide r Reason for Visit * Reason Onset Date Comments Return Visit Medication Administration 02/18/2024 Flu an d/or Pneumo Inj Encounter Details Date Type Department Care Team (Late st Contact Info) Description 02/18/2024 1:30 PM EDT Office Visit Gynecology/Obstetric s Sondra Randall [address] [place] [address] Amanda Howard CRNP [address] [place] [address] Obesity affecting , antepartum, unspecified trimester*; Chronic hypertension affecting ; Class 3 obesity; Need for prophylactic vaccination and inoculation against influenza; Supervision of high risk in first trimester Allergies No known active allergiesdocumented as [...] assessment of proteinuria (24-hour urine protein or xhpngai-rc-enlbindpnl ratio) and CBC, serum AST/ALT/creatinine. If patient [...] preeclamptic labs with CBC, serum AST/ALT/creatinine and vlzimjc-lv-bxdidtpnev ratio or 24-hour urine protein JONAH if [...] money to get more. Never true 05/13/2023 [place] Depression Scale Answer Date Recorded [place] Depression Scale Total 2 01/21/2024 The thought [...] Sign Reading Time Taken Comments Blood Pressure 124/74 02/18/2024 1:16 PM EDT Pulse - - Temperature - - Respiratory Rate - - Oxygen Saturation - - Inhaled Oxygen Concentration - - Weight 108.9 kg (240 lb) 02/18/2024 1:16 PM EDT Height - - Body Mass Index 42.51 01/28/2024 4:24 PM EDT documented in this encounter Progress Notes * aLura Sommers CMA - 02/18/2024 1:27 PM EDT Patient here for FLU vaccine injection. Patient doing well no complaints. Injection given IM as ordered. Patient tolerated well. Patient to follow up as directed. Patient instructed to call if any complications. Patient verbalized understanding of instructions given and her follow up appt for CARIE Injection site: Left Deltoid Medication Source: Dispensed stock medication * Amanda Howard CRNP - 02/18/2024 1:20 PM EDT 13w6d No cramping/bleeding. Accepts flu shot. Qnatal and early GTT today. [facility] anatomy scan scheduled. Return in 4 weeks. BARBARA Shepherd * Glendy Farmer LPN - 02/18/2024 1:15 PM EDT 13w6d Denies vaginal bleeding/rom Absent movement Gtt today documented in this encounter Plan of Treatment Upcoming Encounters Date Type Department Care Team (Late st Contact Info) Description 02/18/2024 1:50 PM EDT Laboratory Laboratory, [facility] [address] [place] [address] [facility] [address] [place] [address] Arrived 03/18/2024 1:30 PM EST Office Visit Gynecology/Obstetrics [facility] [address] [place] [address] Yomaira Keenan CRNP [address] [facility] [place] [address] 03/31/2024 1:30 PM EST Office Visit Hat Block Bench Hand Obstetrics Maternal [facility], [address] [address] Damaso Naranjo DO [address] [place] [address] 03/31/2024 1:30 PM EST Imaging [facility], [place] [address] [place] [address] 09/11/2024 12:00 PM EDT Office Visit Family Practice [address], [place] [address] [place] [address] Jerrod Abraham PA-C [address] [place] [address] Health Maintenance Due Date Last Done Comments [...] Primary Chronic hypertension affecting Class 3 obesity Need for prophylactic vaccination and inoculation against influenza Supervision of high risk in first trimester Unspecified high-risk documented in this encounter Additional Health Concerns Active Problems Noted Date Diagnosed Date OB Reminders 01/21/2024 documented as of this encounter Care Teams Mult Au Matic Operator Relationship Specialty Start Date End Date Jerrod Abraham PA-C [address] [facility] [place] [address] PCP - General Physician Chain Dyer 01/28/24 documented as of this encounter
--- OUTSIDE RECORDS SUMMARY | 2024-08-13 14:51 | External Medical Summary | Summary of Care ---
Author Name Unknown Organization [facility] Address [address] [facility] [place] [address] Phone [phone] Care Team Providers Care Five Roll Refiner Batch Mixer Name Role Phone Jerrod Abraham PA-C Primary Care Provide r Encounter Details Date Type Department Care Team (Late st Contact Info) Description 02/13/2024 Telephone Gynecology/Obstetrics [facility] [address] [place] [address] Patrica Hugo PA-C [address] [place] [address] Allergies No known active allergiesdocumented as of [...] assessment of proteinuria (24-hour urine protein or xabuhdl-es-ylaetrroeo ratio) and CBC, serum AST/ALT/creatinine. If patient [...] Results Component Value Date/Time HEMOGLOBIN A1C - [facility]2 06/05/2023 09:00 AM Last Assessment & [...] preeclamptic labs with CBC, serum AST/ALT/creatinine and oateyui-ku-exlppdijug ratio or 24-hour urine protein JONAH if [...] mRNA, LNP-s, No Pre serve, 2-Dose Series ([employer]) 04/01/2021,05/21/2020,05/03/2020 DTaP Dipth/Tet/Acell Pertussis (Infanrix), Peds 10/19/2004,07/23/2000,1999,07/04,1999 [...] money to get more. Never true 05/13/2023 [place] Depression Scale Answer Date Recorded [place] Depression Scale Total 2 01/21/2024 The thought [...] Connell LPN - 02/25/2024 1:04 PM EDT Pt notified * Telephone Encounter - Laila Jaramillo [...] collection. I placed order for her to picking supervisor materials and instructions at lab. They also recommended starting daily ASA 81 mg at 13 weeks so now. Please let her know. Patrica Hugo PA-C documented in this encounter Plan of Treatment Upcoming Encounters Date Type Department Care Team (Late st Contact Info) Description 03/18/2024 1:30 PM EST Office Visit Gynecology/Obstetrics [facility] [address] [facility] [place] [address] Yomaira Keenan CRNP [address] [facility] [place] [address] 03/31/2024 1:30 PM EST Office Visit Liquid Chlorine Operator Obstetrics [facility], [place] [address] [place] [address] Damaso Naranjo, [address] [place] [address] 03/31/2024 1:30 PM EST Imaging Radiology [facility] [address] [place] [address] 09/11/2024 12:00 PM EDT Office Visit Family Practice [address] [place] [address] Jerrod Abraham PA-C [address] [place] [address] Scheduled Orders Name Type Priority Associated Diagnoses [...] documented as of this encounter Care Teams Five Roll Refiner Batch Mixer Relationship Specialty Start Date End Date Jerrod Abraham PA-C [address] [facility] [place] [address] PCP - General Physician Machine Load Clerk 01/28/24 documented as of this encounter
--- OUTSIDE RECORDS SUMMARY | 2024-08-13 14:51 | External Medical Summary | Summary of Care ---
Author Name Unknown Organization [facility] Address [address] [facility] [address] Phone [phone] Care Team Providers Care Cardiograph Operator Name Role Phone Jerrod Abraham PA-C Primary Care Provide r Reason for Visit * Reason Onset Date Comments Return Visit Medication Administration 02/18/2024 Flu an d/or Pneumo Inj Encounter Details Date Type Department Care Team (Late st Contact Info) Description 02/18/2024 1:30 PM EDT Office Visit Gynecology/Obstetric s Sondra Randall [address] [place] [address] Amanda Howard CRNP [address] [place] [address] Obesity affecting , antepartum, unspecified trimester*; Chronic [...] assessment of proteinuria (24-hour urine protein or xreljzk-hw-tboulitloc ratio) and CBC, serum AST/ALT/creatinine. If patient [...] preeclamptic labs with CBC, serum AST/ALT/creatinine and kwzawtf-ai-icyjnurjim ratio or 24-hour urine protein JONAH if [...] money to get more. Never true 05/13/2023 [place] Depression Scale Answer Date Recorded [place] Depression Scale Total 2 01/21/2024 The thought [...] documented in this encounter Progress Notes * Laura Sommers CMA - 02/18/2024 1:27 PM EDT [...] flu shot. Qnatal and early GTT today. [facility] anatomy scan scheduled. Return in 4 weeks. BARBARA Shepherd * Glendy Farmer LPN - 02/18/2024 1:15 PM EDT 13w6d Denies vaginal bleeding/rom Absent movement Gtt today documented in this encounter Plan of Treatment Upcoming Encounters Date Type Department Care Team (Late st Contact Info) Description 02/18/2024 1:50 PM EDT Laboratory Laboratory, [facility] [address] [facility] [place] [address] [facility] [address] Arrived 03/31/2024 1:30 PM EST Office Visit Linoleum Tile Layer Obstetrics Maternal [facility], [place] [address] [place] [address] Damaso Naranjo DO [address] [place] [address] 03/31/2024 1:30 PM EST [facility] [place] [address] [place] [address] 09/11/2024 12:00 PM EDT Office Visit Family [facility] [address] [place] [address] Jerrod Abraham PA-C [address] [place] [address] Health Maintenance Due Date Last Done Comments [...] documented as of this encounter Care Teams Cardiograph Operator Relationship Specialty Start Date End Date Jerrod Abraham PA-C [address] [facility] [place] [address] PCP - General Physician Bank Cashier 01/28/24 documented as of this encounter
--- OUTSIDE RECORDS SUMMARY | 2024-08-13 14:51 | External Medical Summary | Summary of Care ---
Author Name Unknown Organization [facility] Address [address] [facility] [address] Phone [phone] Care Team Providers Care Cementer Machine Joiner Name Role Phone Jerrod Abraham PA-C Primary Care Provide r Reason for Visit * Reason Comments Outpatient Testing Encounter Details Date Type Department Care Team (Late st Contact Info) Description 02/18/2024 1:20 PM EDT Laboratory Laboratory, [facility] [id number] [facility] [address] [place] [address] Class 3 obesity; Encounter for supervision of normal first in first trimester Allergies No known active [...] assessment of proteinuria (24-hour urine protein or fkntpwd-bf-fekzlyiqsc ratio) and CBC, serum AST/ALT/creatinine. If patient [...] Results Component Value Date/Time [facility] 06/05/2023 09:00 AM Last Assessment & [...] preeclamptic labs with CBC, serum AST/ALT/creatinine and xaxzjdp-vu-aqdjhnicwh ratio or 24-hour urine protein JONAH if [...] Vaccine 10/19/2004,1 Meningococcal B, 2/3-Dose Se azra (BRANDIEUMENBA) 11/28/2019,09/23/2018 Meningococcal Conjugate Vacc ine (Menactra/Menveo) 12/09/2015,10/25/2011 [...] money to get more. Never true 05/13/2023 [place] Depression Scale Answer Date Recorded [place] Depression Scale Total 2 01/21/2024 The thought [...] 03/18/2024 1:30 PM EST Office Visit Gynecology/Obstetrics [facility] [address] [facility] [place] [address] Yomaira Keenan CRNP [address] [facility] [place] [address] 03/31/2024 1:30 PM EST Office Visit Barrel Charrer Obstetrics Maternal Medicine, [place] [address] [place] [address] Damaso Naranjo DO [address] [place] [address] 03/31/2024 1:30 PM EST Imaging Radiology [facility], [place] [address] [place] [address] 09/11/2024 12:00 PM EDT Office Visit Family Practice [address] [place] [address] Jerrod Abraham PA-C [address] [facility] [place] [address] Pending Results Name Type Priority Associated Diagnoses Date /Time 50-G GESTATIONAL GLUCOSE, 1 HOUR Lab Routine Class 3 obesity 02/18/2024 2:10 PM EDT QNATAL ADVANCED (QUEST) Lab Routine Encounter for supervision of normal first in first trimester 02/18/2024 2:10 PM EDT Health Maintenance Due Date Last [...] as of this encounter Visit Diagnoses Diagnosis Class 3 obesity Encounter for supervision of normal first in first trimester Supervision of normal first documented in this encounter Additional Health Concerns Active Problems Noted Date Diagnosed Date OB Reminders 01/21/2024 documented as of this encounter Care Teams Cementer Machine Joiner Relationship Specialty Start Date End Date Jerrod Abraham PA-C [address] [facility] [place] [address] PCP - General Physician Suction Worker 01/28/24 documented as of this encounter
--- OUTSIDE RECORDS SUMMARY | 2024-08-13 14:51 | External Medical Summary | Summary of Care ---
Author Name Unknown Organization [facility] Address [address] [facility] [place] [address] Phone [phone] Care Team Providers Care Production Supv Name Role Phone Jerrod Abraham PA-C Primary Care Provide r Encounter Details Date Type Department Care Team (Late st Contact Info) Description 02/13/2024 Telephone Gynecology/Obstetrics [facility] [address] [place] [address] Patrica Hugo PA-C [address] [place] [address] Allergies No known active allergiesdocumented as of [...] assessment of proteinuria (24-hour urine protein or ptffmro-ty-czlgawzcgq ratio) and CBC, serum AST/ALT/creatinine. If patient [...] Results Component Value Date/Time HEMOGLOBIN A1C - [facility] 5.2 06/05/2023 09:00 AM Last Assessment & [...] preeclamptic labs with CBC, serum AST/ALT/creatinine and opompnd-bz-dmclsypnqj ratio or 24-hour urine protein JONAH if [...] mRNA, LNP-s, No Pre serve, 2-Dose Series ([employer]) 04/01/2021,05/21/2020,05/03/2020 DTaP Dipth/Tet/Acell Pertussis (Infanrix), Peds 10/19/2004,07/23/2000,1999,07/04,1999 [...] money to get more. Never true 05/13/2023 [place] Depression Scale Answer Date Recorded [place] Depression Scale Total 2 01/21/2024 The thought [...] collection. I placed order for her to order picker/assembler materials and instructions at lab. They also recommended starting daily ASA 81 mg at 13 weeks so now. Please let her know. Patrica Hugo PA-C documented in this encounter Plan of Treatment Upcoming Encounters Date Type Department Care Team (Late st Contact Info) Description 03/18/2024 1:30 PM EST Office Visit Gynecology/Obstetrics [facility] [address] [place] [address] Yomaira Keenan CRNP [address] [place] [address] 03/31/2024 1:30 PM EST Office Visit General Utility Maintenance Repairer Obstetrics Maternal Medicine, [place] [address] [place] [address] Damaso Naranjo, [address] [place] [address] 03/31/2024 1:30 PM EST Imaging Radiology [facility], [place] [address] [place] [address] 09/11/2024 12:00 PM EDT Office Visit Family Practice [address] [place] [address] Jerrod Abraham PA-C [address] [place] [address] Scheduled Orders Name Type Priority Associated Diagnoses [...] documented as of this encounter Care Teams Production Supv Relationship Specialty Start Date End Date Jerrod Abraham PA-C [address] [facility] [place] [address] PCP - General Physician Camp Recreation Specialist 01/28/24 documented as of this encounter
--- NOTE | 2024-08-13 15:55 | Obstetrical Progress Note ---
Date of Service August 13, 2024 Assessment & Plan Admission and Anticipated Discharge Date Admission Date: August 13, 2024 Subjective Patient feels well, no complaints She had some cramps earlier but they are gone. NO ctxs/ LOF/VB +FM FHR categ I [place] no ctxs Continue to monitor closely Results & Data Vital Signs (Past 12 Hours) Vital Signs Temp Pulse Resp BP 08/13/24 14:45 93 H 129/65 08/13/24 14:43 20 08/13/24 14:43 36.8 C 20 08/13/24 11:09 88 131/77 08/13/24 11:08 18 08/13/24 11:08 36.7 C 18 08/13/24 07:57 36.8 C 20 08/13/24 07:54 98 H 140/86
[2024-08-13] MEDS: LABETALOL HCL 100 MG TAB PO SCH (18:49)
--- NOTE | 2024-08-13 23:21 | Obstetrical Progress Note ---
Date of Service August 13, 2024 Assessment & Plan Admission and Anticipated Discharge Date Admission Date: August 13, 2024 Subjective Patient is reevaluated. She has had some mild back pain radiating to her groins. Not sure that her contractions. No leakage of fluid or vaginal bleeding. She reports good movements. Cervidil was removed about an hour ago by her nurse. Her cervix is 1 cm dilated, 30% effaced, posterior and high, more softer than this morning. FHR had been category 1 Discussed the findings and recommended to continue with cervical ripening discussed Cervidil insert versus p.o. Cytotec she wants to sleep all night. Plan to give her a tray of diet and insert second Cervidil and Benadryl or melatonin for sleep. All questions were answered. Results & Data Vital Signs (Past 12 Hours) Vital Signs Temp Pulse Resp BP 08/13/24 22:52 79 122/62 08/13/24 18:50 36.7 C 86 18 124/81 08/13/24 14:45 93 H 129/65 08/13/24 14:43 20 08/13/24 14:43 36.8 C 20
[2024-08-14] MEDS: DINOPROSTONE 10 MG INSERT PV ONE (00:24)
[2024-08-14] MEDS: diphenhydrAMINE Capsule 25 MG CAP PO PRN (00:25)
[2024-08-14] MEDS: MELATONIN 3 MG TAB PO PRN (00:25)
--- NOTE | 2024-08-14 12:53 | Labor Progress Brief Note ---
Date of Service August 14, 2024 Assessment & Plan Admission and Anticipated Discharge Date Admission Date: August 13, 2024 Physical Exam Genitourinary: Manual OB Exam: + cervical dilation fingertip and 1 cm, + cervical effacement 50% and + station (Cervix firm and posterior. Howe placed transcervically without a problem.) high OB Exam Monitor Tracing: + external FHT monitor used, + external uterine monitor used, + category I and + normal FHT variability Balloon inflated to 35 ml. and will start Cytotec 50 mcg orally q 4 h. Results & Data Vital Signs (Past 12 Hours) Vital Signs Temp Pulse Resp BP 08/14/24 09:29 86 125/64 08/14/24 07:20 90 126/72 08/14/24 07:17 20 08/14/24 07:17 36.9 C 20 08/14/24 04:32 36.8 C 85 18 130/61
[2024-08-14] MEDS ORDERED: Nursing to Pharmacy Communication SCH (13:45)
[2024-08-14] MEDS: miSOPROStoL 50 MCG TAB PO SCH (14:00)
[2024-08-14] MEDS ORDERED: miSOPROStoL 50 MCG TAB PO SCH (16:00)
--- NOTE | 2024-08-14 22:31 | Labor Progress Brief Note ---
Date of Service August 14, 2024 Assessment & Plan Admission and Anticipated Discharge Date Admission Date: August 13, 2024 Physical Exam Genitourinary: Manual OB Exam: + cervical dilation 1 cm and 2 cm, + cervical effacement 50% and + station high OB Exam Monitor Tracing: + external FHT monitor used, + external uterine monitor used, + category I and + normal FHT variability Will start Oxytocin for induction of labor EFW 7-7.5 lbs. Results & Data Vital Signs (Past 12 Hours) Vital Signs Temp Pulse Resp BP 08/14/24 21:45 99 H 140/98 08/14/24 18:56 36.8 C 88 18 145/87 H 08/14/24 15:04 36.9 C 90 18 142/67 H 08/14/24 12:57 20 08/14/24 12:57 36.4 C L 20 08/14/24 12:56 77 134/74
[2024-08-14] MEDS: LACTATED RINGER'S 1,000 ML IV SCH (23:08)
[2024-08-14] MEDS: PENICILLIN GK 6 MU in DEXTROSE 5% 250 ML IV STA (23:08)
[2024-08-14] MEDS: OXYTOCIN 30 UNITS/NSS 30 UNITS/500 ML BAG IV PRN (23:08)
[2024-08-15] MEDS: PENICILLIN GK 3 MU in DEXTROSE 5% 100 ML IV PRN (02:42)
[2024-08-15] MEDS: BUTORPHANOL TARTRATE 1 MG/ML VIAL IV PRN (04:55)
[2024-08-15] MEDS ORDERED: BUPIVACAINE 0.25% PF 30 ML VIAL EPI PRN (05:43)
[2024-08-15] MEDS ORDERED: fentaNYL citrate PF 100 MCG/2 ML VIAL EPI PRN (05:43)
[2024-08-15] MEDS ORDERED: NALOXONE HCL 0.4 MG/1 ML VIAL/CARP IV PRN (05:43)
[2024-08-15] MEDS ORDERED: ROPIVACAINE 0.5% PF 5 MG/ML 20 ML VIAL EPI PRN (05:43)
[2024-08-15] MEDS ORDERED: ePHEDrine sulfate 50 MG/ML AMP IV PRN (05:43)
[2024-08-15] MEDS ORDERED: diphenhydrAMINE 50 MG/ML VIAL IV PRN (05:43)
[2024-08-15] MEDS ORDERED: LIDOCAINE 2% MPF LOCAL 5 ML VIAL EPI PRN (05:43)
[2024-08-15] MEDS ORDERED: SODIUM CHLORIDE 0.9% PF INJ 10 ML VIAL EPI PRN (05:43)
[2024-08-15] MEDS ORDERED: NALBUPHINE HCL INJ 10 MG/ML AMP IV PRN (05:43)
[2024-08-15] MEDS ORDERED: NALOXONE HCL 1 MG in SODIUM CHLORIDE 0.9% 1,000 ML IV PRN (05:43)
--- NOTE | 2024-08-15 05:43 | Anesthesiology Consultation ---
Date of Service August 15, 2024 Assessment & Plan (1) Encounter for pre-operative examination: Chart Review Chart Review: Patient NOT seen in Pre Admission Testing and Acceptable Risk for Labor Epidural Consults Requested none History Height/Weight Height: 5 ft 3 in Weight: 127.006 kg Allergies Allergy/AdvReac Type Severity Reaction Status Date / Time No Known Allergies Allergy Verified 08/13/24 08:01 Medications Home Medications Medication Instructions Recorded Confirmed Last Taken aspirin 81 mg chewable tablet 81 mg PO DAILY 08/13/24 08/13/24 08/12/24 labetalol 100 mg tablet 100 mg PO BID 08/13/24 08/13/24 08/13/24 06:00 [id number] 1 mg 1 tab PO DAILY 08/13/24 08/13/24 08/12/24 tablet Active Medications Generic Name Dose Route Start Last Admin Trade Name Freq PRN Reason Stop Dose Admin Butorphanol Tartrate 1 mg 08/13/24 23:21 08/15/24 04:55 Butorphanol Tartrate 1 Mg/Ml Vial IV 09/12/24 23:20 1 mg Q3H PRN Administration Pain Diphenhydramine HCl 25 mg 08/13/24 23:17 08/14/24 23:10 Diphenhydramine Capsule 25 Mg Cap PO 09/12/24 23:16 25 mg Q8 PRN Administration Sleep Penicillin G Potassium 3 mu/ 106 mls @ 100 mls/hr 08/13/24 11:03 08/15/24 02:42 Dextrose IV 08/23/24 11:02 100 mls/hr Q4H PRN Administration GBS(+) Until Delivery Oxytocin 30 units in 500 mls @ 20 mls/hr 08/14/24 22:41 08/15/24 05:00 Pitocin 30 Units/Nss IV 08/16/24 22:40 1.2 units/hr .Q24H PRN 20 mls/hr Labor Induction/Augmentation Titration Protocol 1.2 UNITS/HR Lactated Ringer's 1,000 mls @ 125 mls/hr 08/14/24 23:15 08/15/24 05:35 Lr IV 08/15/24 23:14 999 mls/hr .Q8H DEBBIE Infusion Labetalol HCl 100 mg 08/13/24 18:00 08/14/24 21:44 Labetalol Hcl 100 Mg Tab PO 09/12/24 17:59 100 mg BID DEBBIE Administration Melatonin 3 mg 08/13/24 23:17 08/14/24 23:14 Melatonin 3 Mg Tab PO 09/12/24 23:16 3 mg HS PRN Administration Sleep Misoprostol 50 mcg 08/14/24 14:00 08/14/24 18:00 Misoprostol 50 Mcg Tab PO 09/13/24 13:59 50 mcg Q4H DEBBIE Administration Past Medical History Medical History Chronic hypertension on medications prior to Past Family History Family History Other No known health problems Past Surgical History Surgical History Hx of breast reduction, elective 2017 Social History Smoking Status: Never smoker Hx Alcohol Use: No Hx Substance Use: No substance use type: does not use Physical Exam Vital Signs Last Vital Signs Temp 98.2 F 08/15/24 02:41 Pulse 88 08/15/24 05:39 Resp 18 08/15/24 05:05 BP 108/57 L 08/15/24 05:05 Pulse Ox 95 08/15/24 05:39 Testing Laboratory Results 08/13/24 08:43 08/13/24 08:43 Blood Type O Positive 08/13/24 08:43 Antibody Screen NEGATIVE 08/13/24 08:43
[2024-08-15] MEDS: BUPIVACAINE 0.25% PF 30 ML VIAL ONE (06:01)
[2024-08-15] MEDS: fentaNYL citrate PF 100 MCG/2 ML VIAL ONE (06:01)
[2024-08-15] MEDS: LIDOCAINE 2%/EPINEPHRINE 1:200,000 20 ML PF ONE (06:01)
[2024-08-15] MEDS: fentANYL 2 MCG/ML BUPIVacaine 0.125%-NSS 100ML BAG ONE (06:02)
[2024-08-15] MEDS: ePHEDrine sulfate 50 MG/ML AMP ONE (06:25)
[2024-08-15] MEDS: SODIUM CHLORIDE 0.9% PF INJ 10 ML VIAL ONE (06:25)
--- NOTE | 2024-08-15 06:47 | Labor Progress Brief Note ---
Date of Service August 15, 2024 Assessment & Plan Admission and Anticipated Discharge Date Admission Date: August 13, 2024 Physical Exam Genitourinary: Manual OB Exam: + cervical dilation 3 cm and 4 cm, + cervical effacement 90%, + station -2 and + amniotic fluid (AROM with Amni-hook cleaR FLUID) clear OB Exam Monitor Tracing: + external FHT monitor used, + external uterine monitor used, + category I and + normal FHT variability Results & Data Vital Signs (Past 12 Hours) Vital Signs Temp Pulse Resp BP Pulse Ox 08/15/24 06:39 101 H 96 08/15/24 06:36 75 94 08/15/24 06:34 71 94 08/15/24 06:30 71 94 08/15/24 06:29 74 95 08/15/24 06:24 87 95 08/15/24 06:19 81 95 08/15/24 06:14 82 109/52 L 96 08/15/24 06:09 89 126/59 L 96 08/15/24 06:07 93 H 126/61 08/15/24 06:05 91 H 119/60 94 08/15/24 06:04 89 95 08/15/24 06:03 81 114/56 L 08/15/24 06:02 89 115/57 L 08/15/24 05:59 109 H 08/15/24 05:59 90 144/62 H 97 08/15/24 05:57 90 145/81 H 08/15/24 05:55 102 H 146/83 H 08/15/24 05:54 119 H 96 08/15/24 05:52 101 H 94 08/15/24 05:49 117 H 95 08/15/24 05:44 101 H 93 08/15/24 05:39 88 95 08/15/24 05:36 83 94 08/15/24 05:34 79 95 08/15/24 05:05 68 18 108/57 L 08/15/24 04:10 73 18 132/70 08/15/24 03:05 81 18 101/58 L 08/15/24 02:41 36.8 C 74 18 124/58 L 08/15/24 02:06 92 H 18 115/56 L 08/15/24 01:05 85 18 122/57 L 08/15/24 00:10 18 08/15/24 00:10 81 18 114/57 L 08/14/24 23:05 36.8 C 82 18 117/79 08/14/24 21:45 99 H 140/98 08/14/24 18:56 36.8 C 88 18 145/87 H
--- NOTE | 2024-08-15 08:36 | Obstetrical Progress Note ---
Date of Service August 15, 2024 Assessment & Plan Admission and Anticipated Discharge Date Admission Date: August 13, 2024 Subjective I got sign out from Dr Carias who AROM'ed her at 6:45 Patient has epidural and comfortable Oxytocin is at 20 miu/min, her nurse is unable to trace ctxs and asking for IUPC VSS Afebrile FHR categ I VE; 4/ 80%/ -2, clear fluids, IUPC is placed, Continue to monitor closely Results & Data Vital Signs (Past 12 Hours) Vital Signs Temp Pulse Resp BP Pulse Ox 08/15/24 08:29 78 97 08/15/24 08:24 78 96 08/15/24 08:22 77 118/56 L 08/15/24 08:19 83 95 08/15/24 08:14 78 95 08/15/24 08:09 75 113/53 L 96 08/15/24 08:04 71 95 08/15/24 07:59 88 95 08/15/24 07:54 75 96 08/15/24 07:53 72 122/61 08/15/24 07:49 89 96 08/15/24 07:44 74 93 08/15/24 07:39 72 93 08/15/24 07:38 74 115/67 08/15/24 07:34 74 94 08/15/24 07:29 72 94 08/15/24 07:25 76 120/55 L 08/15/24 07:24 86 96 08/15/24 07:19 80 95 08/15/24 07:14 80 95 08/15/24 07:12 88 94 08/15/24 07:09 83 94 08/15/24 07:08 36.9 C 08/15/24 07:07 85 117/66 92 08/15/24 07:04 82 95 08/15/24 06:59 80 96 08/15/24 06:58 92 H 94 08/15/24 06:54 93 H 96 08/15/24 06:52 81 125/72 08/15/24 06:51 86 94 08/15/24 06:49 84 96 08/15/24 06:44 87 96 08/15/24 06:39 101 H 96 08/15/24 06:36 75 94 08/15/24 06:34 71 94 08/15/24 06:30 71 94 08/15/24 06:29 74 95 08/15/24 06:24 87 95 08/15/24 06:19 81 95 08/15/24 06:14 82 109/52 L 96 08/15/24 06:09 89 126/59 L 96 08/15/24 06:07 93 H 126/61 08/15/24 06:05 91 H 119/60 94 08/15/24 06:04 89 95 08/15/24 06:03 81 114/56 L 08/15/24 06:02 89 115/57 L 08/15/24 05:59 109 H 08/15/24 05:59 90 144/62 H 97 08/15/24 05:57 90 145/81 H 08/15/24 05:55 102 H 146/83 H 08/15/24 05:54 119 H 96 08/15/24 05:52 101 H 94 08/15/24 05:49 117 H 95 08/15/24 05:44 101 H 93 08/15/24 05:39 88 95 08/15/24 05:36 83 94 08/15/24 05:34 79 95 08/15/24 05:05 68 18 108/57 L 08/15/24 04:10 73 18 132/70 08/15/24 03:05 81 18 101/58 L 08/15/24 02:41 36.8 C 74 18 124/58 L 08/15/24 02:06 92 H 18 115/56 L 08/15/24 01:05 85 18 122/57 L 08/15/24 00:10 18 08/15/24 00:10 81 18 114/57 L 08/14/24 23:05 36.8 C 82 18 117/79 08/14/24 21:45 99 H 140/98
[2024-08-15] MEDS ORDERED: NURSING L&D Epidural Breakthrough Pain Update ONE (12:46)
--- NOTE | 2024-08-15 13:29 | Obstetrical Progress Note ---
Date of Service August 15, 2024 Assessment & Plan Admission and Anticipated Discharge Date Admission Date: August 13, 2024 Subjective I was called by nursing staff that unable to trace to baby's heart rate during different positions, Patient is comfortable, Vaginal exam cervix is 9 cm, 90% effaced head is at +1 station, IPCs removed, scalp is applied heart rate 140s, category 1, Patient does not feel any pain or pressure, Continue to monitor closely we will start pushing when she feels the urge or pressure Results & Data Vital Signs (Past 12 Hours) Vital Signs Temp Pulse Resp BP Pulse Ox 08/15/24 13:24 93 H 08/15/24 13:24 97 H 125/61 96 08/15/24 13:09 92 H 97 08/15/24 13:07 89 121/64 08/15/24 12:54 91 H 97 08/15/24 12:53 85 111/59 L 08/15/24 12:45 88 111/59 L 08/15/24 12:39 93 H 93 08/15/24 12:24 102 H 96 08/15/24 12:09 82 96 08/15/24 12:07 81 131/81 08/15/24 11:54 80 97 08/15/24 11:53 113 H 128/95 08/15/24 11:39 94 H 96 08/15/24 11:37 86 136/78 08/15/24 11:24 91 H 96 08/15/24 11:23 103 H 135/77 08/15/24 11:09 88 96 08/15/24 11:08 82 130/67 08/15/24 10:55 36.9 C 08/15/24 10:54 85 96 08/15/24 10:53 77 124/69 08/15/24 10:39 99 H 96 08/15/24 10:37 81 132/74 08/15/24 10:24 84 96 08/15/24 10:22 87 135/74 08/15/24 10:09 86 97 08/15/24 09:54 89 95 08/15/24 09:52 78 129/69 08/15/24 09:39 88 97 08/15/24 09:37 80 98/50 L 08/15/24 09:24 71 114/55 L 96 08/15/24 09:12 83 91 08/15/24 09:09 78 97 08/15/24 09:08 73 116/56 L 08/15/24 09:03 36.9 C 08/15/24 08:54 85 97 08/15/24 08:53 80 114/56 L 08/15/24 08:49 73 95 08/15/24 08:44 74 97 08/15/24 08:39 85 96 08/15/24 08:34 83 96 08/15/24 08:29 78 97 08/15/24 08:24 78 96 08/15/24 08:22 77 118/56 L 08/15/24 08:19 83 95 08/15/24 08:14 78 95 08/15/24 08:09 75 113/53 L 96 08/15/24 08:04 71 95 08/15/24 07:59 88 95 08/15/24 07:54 75 96 08/15/24 07:53 72 122/61 08/15/24 07:49 89 96 08/15/24 07:44 74 93 08/15/24 07:39 72 93 08/15/24 07:38 74 115/67 08/15/24 07:34 74 94 08/15/24 07:29 72 94 08/15/24 07:25 76 120/55 L 08/15/24 07:24 86 96 08/15/24 07:19 80 95 08/15/24 07:14 80 95 08/15/24 07:12 88 94 08/15/24 07:09 83 94 08/15/24 07:08 36.9 C 08/15/24 07:07 85 117/66 92 08/15/24 07:04 82 95 08/15/24 06:59 80 96 08/15/24 06:58 92 H 94 08/15/24 06:54 93 H 96 08/15/24 06:52 81 125/72 08/15/24 06:51 86 94 08/15/24 06:49 84 96 08/15/24 06:44 87 96 08/15/24 06:39 101 H 96 08/15/24 06:36 75 94 08/15/24 06:34 71 94 08/15/24 06:30 71 94 08/15/24 06:29 74 95 08/15/24 06:24 87 95 08/15/24 06:19 81 95 08/15/24 06:14 82 109/52 L 96 08/15/24 06:09 89 126/59 L 96 08/15/24 06:07 93 H 126/61 08/15/24 06:05 91 H 119/60 94 08/15/24 06:04 89 95 08/15/24 06:03 81 114/56 L 08/15/24 06:02 89 115/57 L 08/15/24 05:59 109 H 08/15/24 05:59 90 144/62 H 97 08/15/24 05:57 90 145/81 H 08/15/24 05:55 102 H 146/83 H 08/15/24 05:54 119 H 96 08/15/24 05:52 101 H 94 08/15/24 05:49 117 H 95 08/15/24 05:44 101 H 93 08/15/24 05:39 88 95 08/15/24 05:36 83 94 08/15/24 05:34 79 95 08/15/24 05:05 68 18 108/57 L 08/15/24 04:10 73 18 132/70 08/15/24 03:05 81 18 101/58 L 08/15/24 02:41 36.8 C 74 18 124/58 L 08/15/24 02:06 92 H 18 115/56 L
[2024-08-15] MEDS: fentANYL 2 MCG/ML BUPIVacaine 0.125%-NSS 100ML BAG EPI PRN (13:33)
[2024-08-15] MEDS ORDERED: fentaNYL citrate PF 100 MCG/2 ML VIAL ONE (13:47)
[2024-08-15] MEDS ORDERED: LIDOCAINE 2% 20 MG/ML 5 ML SYR IV ONE (13:47)
--- NOTE | 2024-08-15 13:57 | Anesthesia Procedure Note ---
Date of Service August 15, 2024 Anesthesia Epidural Re-Dose Vital Signs Temp Pulse Resp BP Pulse Ox 36.9 C 96 H 18 129/58 L 97 08/15/24 10:55 08/15/24 13:55 08/15/24 05:05 08/15/24 13:55 08/15/24 13:54 Notes Pain Intensity: 7 Dilatation (cm): 9.0 Effacement (%): 90 Called by nursing to evaluate epidural as the patient is having increased pain. The epidural was re-dosed with the following medications (all medications via epidural route) after negative aspiration of the epidural catheter for CSF/HEME. 2% lidocaine 5ml with fentanyl 100mcg. After Epidural Re-Dose Mental Status: alert / awake / arousable Pain: improving with treatment Airway Patency, RR, SpO2: stable & adequate BP & HR: stable & adequate
[2024-08-15] MEDS ORDERED: bisacodyL 10 MG SUPP PR PRN (16:44)
[2024-08-15] MEDS ORDERED: HYDROCORTISONE ACETATE 25 MG SUPP PR PRN (16:44)
[2024-08-15] MEDS ORDERED: OXYTOCIN 30 UNITS/NSS 30 UNITS/500 ML BAG IV PRN (16:44)
[2024-08-15] MEDS ORDERED: BENZOCAINE 20% SPRY 85 APPLN/85 GM CAN EXT PRN (16:44)
[2024-08-15] MEDS ORDERED: oxyCODONE/ACETAMINOPHEN 5mg/325mg TAB PO PRN (16:44)
--- NOTE | 2024-08-15 16:49 | Delivery Summary ---
Vaginal Delivery Summary Date of Service August 15, 2024 Vaginal Delivery Summary Patient was found to be fully dilated and desires to push. She pushed for about 10 min and delivered the head and then shoulders spontaneously with the last push The baby was handed off to the mother. The cord was clampedx2 and cut at 1 minute. The vagina and perineum were checked and found to have small 2nd degree perineal laceration. Rectal exam was done and noted good sphincter tone. The gloves were changes. The vaginal mucosa was repaired with 2/0 vicryl and skin on subcuticular fashion. The placenta was delivered spontaneously as intact and complete. The uterus was explored and found to be empty. QBL was 250 ml. The fundus was firm The baby was a viable male infant, Apgars 2/9, the weight is pending The mother and the baby tolerated the procedure well. No complications happened and I was present during whole procedure.
[2024-08-15] MEDS: OXYTOCIN 30 UNITS/NSS 30 UNITS/500 ML BAG IV PRN (16:55)
--- NOTE | 2024-08-15 18:18 | Anesthesia Procedure Note ---
Date of Service August 15, 2024 Anesthesia Post Epidural Note Vital Signs Vital Signs: Temp Pulse Resp BP Pulse Ox 36.9 C 92 H 18 122/75 92 08/15/24 16:45 08/15/24 18:16 08/15/24 05:05 08/15/24 18:16 08/15/24 17:45 Pain Intensity Buttock: Pain Intensity: 0 Notes Mental Status: alert / awake / arousable and participated in evaluation Nausea / Vomiting: adequately controlled Pain: adequately controlled Airway Patency, RR, SpO2: stable & adequate BP & HR: stable & adequate Hydration State: stable & adequate Neuraxial Anesthesia: was administered and sensory block is resolving Anesthetic Complications: no major complications apparent Epidural: Removed without complications and With tip intact
[2024-08-15] MEDS: BUPIVACAINE 0.25% PF 30 ML VIAL EPI STA (18:37)
[2024-08-15] MEDS: LIDOCAINE 2%/EPINEPHRINE 1:200,000 20 ML PF EPI STA (18:38)
[2024-08-15] MEDS ORDERED: Nursing to Pharmacy Communication SCH (18:45)
[2024-08-15] MEDS: bisacodyL 5 MG TABEC PO SCH (20:43)
[2024-08-15] MEDS: DOCUSATE SODIUM 100 MG CAP PO SCH (20:43)
[2024-08-15] MEDS: ACETAMINOPHEN 325 MG TAB PO PRN (22:56)
[2024-08-16] MEDS: IBUPROFEN 600 MG TAB PO PRN (03:03)
[2024-08-16 07:36] LABS: Hematocrit (blood only) 29.4 % (37.0-47.0); Hemoglobin 9.9 g/dl (12.0-16.0); Mean Corpuscular Hemoglobin 30.7 pg (25.0-34.0); Mean Corpuscular Hgb Conc 33.7 g/dL (32.0-36.0); Mean Corpuscular Volume 91.3 fL (80.0-100.0); Mean Platelet Volume 11.6 fL (9.4-12.4); Platelet Count 201 K/uL (130-400); RDW Coefficient of Variation 13.7 % (11.5-14.5); RDW Standard Deviation 45.1 fL (36.4-46.3); Red Blood Count 3.22 M/uL (4.20-5.40); White Blood Count 13.33 K/ul (4.8-10.8)
[2024-08-16] MEDS: PRENATAL VITAMIN 1 TAB PO SCH (08:09)
[2024-08-16] MEDS: FERROUS SULFATE 325 MG TAB PO SCH (08:09)
[2024-08-16 09:06] VITALS: O2SAT 97
[2024-08-16] MEDS: fentaNYL citrate PF 100 MCG/2 ML VIAL EPI STA (09:07)
[2024-08-16] MEDS: SODIUM CHLORIDE 0.9% PF INJ 10 ML VIAL EPI STA (09:07)
[2024-08-16] MEDS: DIPHTHER/TETAN/PERTUS Vaccine (Tdap, Adol/Adult) 0.5mL IM ONE (09:08)
[2024-08-16] MEDS: MEASLES, MUMPS & RUBELLA VIRUS VACCINE (MMR) 0.5ML VIAL SQ ONE (09:09)
--- NOTE | 2024-08-16 09:19 | Obstetrical Progress Note ---
Date of Service August 16, 2024 Assessment & Plan Admission and Anticipated Discharge Date Admission Date: August 13, 2024 Subjective abdomen soft and non tender passing gas ambulating well no calf tenderness on labetalol 100 mg bid vaginal bleeding scant hgb 9.9 Results & Data Vital Signs (Past 12 Hours) Vital Signs Temp Pulse Resp BP Pulse Ox O2 Del Method 08/16/24 08:40 139/72 08/16/24 07:40 36.7 C 80 20 109/69 97 Room Air 08/16/24 02:49 36.8 C 90 18 114/67 96 Room Air 08/15/24 22:53 37 C 90 18 121/65 96 Room Air
[2024-08-16 11:44] VITALS: TEMP 98.2
[2024-08-16 16:04] VITALS: BP 99/65; PULSE 105; RESP 20
== END 2024-08-16 18:35 | disposition home or self-care (01) | DRG 807 ==
LOC: 4S1 07:45 → 4E2 08-15 20:21